=== PATIENT | male | born 1940 | race Caucasian/White ===

== ENCOUNTER → 2021-05-16 | Outpatient (CLI) | payer OTHER ==
[~2021-05-16] MED LIST: ASP81CT PO; DONE5TAB4 GT; HCT25T PO; SMV20T PO
--- NOTE | 2021-05-16 17:44 | Diagnostic Imaging Report ---
EXAMINATION: US Retroperitoneal Complete. TECHNIQUE: Multiple real-time grayscale images were obtained over the kidneys in various projections bilaterally. HISTORY: Chronic kidney disease. COMPARISON: Ultrasound abdomen 05/03/2011. FINDINGS: The right kidney demonstrates normal echogenicity with mildly decreased cortical thickness. The right kidney measures 9.6 x 4.2 x 5.8 cm. No hydronephrosis. The left kidney demonstrates normal echogenicity and mildly decreased cortical thickness. The left kidney measures 9.0 x 4.2 x 4.8 cm. No hydronephrosis. IMPRESSION: 1. Mild bilateral renal cortical thinning compatible with history of chronic kidney disease. No hydronephrosis. Dictated by: Dictated on workstation # [id number]
== END ==
LOC: RAD 15:15
PROVIDERS: ATTEND Nurse Practitioner Adult Health
DX: Z87.448 Personal history of other diseases of urinary system (principal)
CPT/HCPCS: 76770

== ENCOUNTER → 2021-06-06 | Outpatient (CLI) | payer OTHER ==
--- NOTE | 2021-06-06 16:07 | Diagnostic Imaging Report ---
EXAMINATION: US Retroperitoneal Complete. TECHNIQUE: Multiple real-time grayscale images were obtained over the kidneys in various projections bilaterally. HISTORY: CKD COMPARISON: Renal ultrasound 05/16/2021 FINDINGS: The right kidney demonstrates normal echogenicity and decreased cortical thickness. The right kidney measures 10.2 x 4.2 x 4.8 cm. No hydronephrosis. The left kidney demonstrates normal echogenicity and decreased cortical thickness. The left kidney measures 8.5 x 4.1 x 5.5 cm. No hydronephrosis. The urinary bladder is decompressed IMPRESSION: 1. Cortical thinning without hydronephrosis. Dictated by: Dictated on workstation # [id number]
== END ==
LOC: RAD 14:50
PROVIDERS: ATTEND Internal Medicine Nephrology
DX: N20.0 Calculus of kidney (principal); I12.9 Hypertensive chronic kidney disease with stage 1 through stage 4 chronic kidney disease, or unspecified chronic kidney disease; N18.32 Chronic kidney disease, stage 3b; N26.1 Atrophy of kidney (terminal)
CPT/HCPCS: 76770

== ENCOUNTER 2021-06-09 17:04 | Inpatient (IN) | payer MEDICARE, OTHER ==
[~2021-06-09] VITALS: Ht 172 cm; Wt 86.8 kg
--- NOTE | 2021-06-09 17:28 | ED General ---
General Chief Complaint: General Problems/Pain Stated Complaint: CONFUSION,WEAKNESS,FEVER Nursing Triage Note: ARRIVED VIA EMS FROM HOME WITH GENERALIZED WEKANKSS, FEVER, AND NOT FEELING WELL. Source of Information: Patient Exam Limitations: No Limitations (STEVE RAMIREZ MD) History of Present Illness Date Seen by Provider: Jun 09, 2021 Time Seen by Provider: 17:05 Initial Comments Christina is an 80-year-old male who presents to the emergency department today with a chief complaint of generalized weakness, confusion and reportedly fever by EMS of 101.7. Onset of symptoms possibly today. The patient is not a good historian and says "I do not know" to multiple questions. He denies any pain or shortness of breath. He cannot recall his past medical history or medications. He does not answer questions verbally he shakes his head a lot. No family is immediately available for history. Patient did present with a urostomy bag full of urine that is very strong smelling. Vital signs are stable. He is not hypoxic. He is demonstrating no increased work of breathing. He is obviously confused and cannot state where he is even though he has been told multiple times. Family phone numbers of his niece Kaci at [phone], his daughter Melissa [phone] and her Manpreet [phone] are provided to me for further history. (STEVE RAMIREZ MD) Allergies and Home Medications Allergies Coded Allergies: No Known Drug Allergies (Unverified , 12/16/10) Home Medications Aspirin 81 Mg Chew, 81 MG PO DAILY, (Reported) Donepezil Hcl 5 Mg Tab, 5 MG GT DAILY, (Reported) Hydrochlorothiazide 25 Mg Tab, 25 MG PO DAILY, (Reported) Simvastatin 20 Mg Tab, 20 MG PO DAILY, (Reported) Patient Home Medication List Home Medication List Reviewed: Yes (STEVE RAMIREZ MD) Review of Systems Review of Systems Constitutional: see HPI (STEVE RAMIREZ MD) Past Gfwoujo-Ytgdrl-Sumawz Hx Patient Social History Smoking Status: Unknown if Ever Smoked Substance use?: No Alcohol Use?: No (STEVE RAMIREZ MD) Tobacco Use?: No Use of E-Cig and/or Vaping dev: No (MUNIR IBARRA) Immunizations Up To Date Second COVID19 Vaccination Tam: HAS HAD IT BUT UNKNOWN DATE (STEVE RAMIREZ MD) Physical Exam Vital Signs Vital Signs - First Documented 06/09/21 17:15 Temp 37.4 Pulse 102 Resp 16 B/P (MAP) 112/66 (81) Pulse Ox 93 O2 Delivery Room Air (MUNIR IBARRA) Vital Signs Capillary Refill : Less Than 3 Seconds (STEVE RAMIREZ MD) Height, Weight, BMI Height: 5'9.00" Weight: 182lbs. oz. 82.725926cg; BMI Method: General Appearance: No Apparent Distress, WD/WN Eyes: Bilateral Eye Normal Inspection, Bilateral Eye PERRL, Bilateral Eye EOMI HEENT: PERRL/EOMI, Other (vomitus on face) Neck: Normal Inspection Respiratory: Lungs Clear, Normal Breath Sounds, No Accessory Muscle Use, No Respiratory Distress Cardiovascular: Regular Rate, Rhythm Gastrointestinal: Soft, Tenderness, Other (Urostomy present in the right lower quadrant) Extremity: Normal Capillary Refill, Normal Inspection, Normal Range of Motion, No Pedal Edema Neurologic/Psychiatric: Alert, No Motor/Sensory Deficits, Normal Mood/Affect Skin: Normal Color, Warm/Dry (STEVE RAMIREZ MD) Focused Exam Lactate Level 06/09/21 17:20: Lactic Acid Level 6.92*H (MUNIR IBARRA) Lactic Acid Level Laboratory Tests Test 06/09/21 17:20 Lactic Acid Level 6.92 MMOL/L (0.50-2.00) *H (MUNIR IBARRA) Progress/Results/Core Measures Suspected Sepsis SIRS Temperature: Pulse: 102 Respiratory Rate: 16 Laboratory Tests 06/09/21 17:20: White Blood Count 15.9H Blood Pressure 112 /66 Mean: 81 06/09/21 17:20: Lactic Acid Level 6.92*H Laboratory Tests 06/09/21 17:20: Creatinine 2.34H, Platelet Count 173, Total Bilirubin 0.4 (STEVE RAMIERZ MD) Results/Orders Lab Results Laboratory Tests Test 06/09/21 17:20 06/09/21 18:45 Range/Units White Blood Count 15.9 H 4.3-11.0 10^3/uL Red Blood Count 4.60 4.30-5.52 10^6/uL Hemoglobin 14.2 13.3-17.7 g/dL Hematocrit 44 40-54 % Mean Corpuscular Volume 95 80-99 fL Mean Corpuscular Hemoglobin 31 25-34 pg Mean Corpuscular Hemoglobin Concent 33 32-36 g/dL Red Cell Distribution Width 12.8 10.0-14.5 % Platelet Count 173 130-400 10^3/uL Mean Platelet Volume 10.9 9.0-12.2 fL Immature Granulocyte % (Auto) 1 % Neutrophils (%) (Auto) 95 H 42-75 % Lymphocytes (%) (Auto) 2 L 12-44 % Monocytes (%) (Auto) 1 0-12 % Eosinophils (%) (Auto) 2 0-10 % Basophils (%) (Auto) 0 0-10 % Neutrophils # (Auto) 15.0 H 1.8-7.8 10^3/uL Lymphocytes # (Auto) 0.3 L 1.0-4.0 10^3/uL Monocytes # (Auto) 0.1 0.0-1.0 10^3/uL Eosinophils # (Auto) 0.2 0.0-0.3 10^3/uL Basophils # (Auto) 0.1 0.0-0.1 10^3/uL Immature Granulocyte # (Auto) 0.1 0.0-0.1 10^3/uL Neutrophils % (Manual) 88 % Lymphocytes % (Manual) 1 % Monocytes % (Manual) 1 % Eosinophils % (Manual) 0 % Basophils % (Manual) 0 % Band Neutrophils 10 % Blood Morphology Comment NORMAL Urine Color YELLOW Urine Clarity CLEAR Urine pH 5.5 5-9 Urine Specific [place] 1.020 1.016-1.022 Urine Protein 1+ H NEGATIVE Urine Glucose (UA) NEGATIVE NEGATIVE Urine Ketones NEGATIVE NEGATIVE Urine Nitrite NEGATIVE NEGATIVE Urine Bilirubin NEGATIVE NEGATIVE Urine Urobilinogen 0.2 < = 1.0 MG/DL Urine Leukocyte Esterase 1+ H NEGATIVE Urine RBC (Auto) TRACE-I NEGATIVE Urine RBC 0-2 /HPF Urine WBC 5-10 H /HPF Urine Squamous Epithelial Cells NONE /HPF Urine Crystals NONE /LPF Urine Bacteria LARGE H /HPF Urine Casts NONE /LPF Urine Mucus NEGATIVE /LPF Urine Culture Indicated CULTURE PENDING Sodium Level 144 135-145 MMOL/L Potassium Level 3.5 L 3.6-5.0 MMOL/L Chloride Level 110 H 98-107 MMOL/L Carbon Dioxide Level 14 L 21-32 MMOL/L Anion Gap 20 H 5-14 MMOL/L Blood Urea Nitrogen 27 H 7-18 MG/DL Creatinine 2.34 H 0.60-1.30 MG/DL Estimat Glomerular Filtration Rate 27 BUN/Creatinine Ratio 12 Glucose Level 83 70-105 MG/DL Lactic Acid Level 6.92 *H 0.50-2.00 MMOL/L Calcium Level 8.9 8.5-10.1 MG/DL Corrected Calcium 9.2 8.5-10.1 MG/DL Total Bilirubin 0.4 0.1-1.0 MG/DL Aspartate Amino Transf (AST/SGOT) 23 5-34 U/L Alanine Aminotransferase (ALT/SGPT) 13 0-55 U/L Alkaline Phosphatase 109 40-136 U/L Total Protein 6.3 L 6.4-8.2 GM/DL Albumin 3.6 3.2-4.5 GM/DL Influenza Type A (RT-PCR) Not Detected Not Detecte Influenza Type B (RT-PCR) Not Detected Not Detecte SARS-CoV-2 RNA (RT-PCR) Not Detected Not Detecte (MUNIR IBARRA) My Orders Orders - MUNIR IBARRA Cefepime 1 Gm Iv (1x Dose) (06/09/21 19:15) (MUNIR IBARRA) Vital Signs/I&O 06/09/21 17:15 Temp 37.4 Pulse 102 Resp 16 B/P (MAP) 112/66 (81) Pulse Ox 93 O2 Delivery Room Air (MUNIR IBARRA) Vital Signs/I&O Capillary Refill : Less Than 3 Seconds (STEVE RAMIREZ MD) Blood Pressure Mean: 81 Progress Note : Time: 18:19 Progress Note Assumed care of the patient at shift change. He is in septic shock based on his lactate with presumable UTI. His Covid is negative but a chest x-ray is pending. Plan for ICU care as he is desiccated. He wishes to be full CODE STATUS according to his family. They stated never had a conversation before today. Based on the results of the chest x-ray we will determine appropriate antibiotic choice. (MUNIR IBARRA) Diagnostic Imaging Diagonstic Imaging: Xray Plain Films/CT/US/NM/MRI: chest Comments [facility] [place], [place] NAME: CHRISTINA BRENNER [facility] REC#: [id number] PT STATUS: REG ER : 1940 PHYSICIAN: STEVE RAMIREZ MD ADMIT DATE: 06/09/21/ER Draft Date of Exam:06/09/21 CHEST 1 VIEW, AP/PA ONLY INDICATION: Sepsis COMPARISON: None FINDINGS: Single view of the chest demonstrates clear lungs bilaterally. The heart is normal. There is no pneumothorax. The osseous structures normal. IMPRESSION: Negative chest Dictated on workstation # [id number] Dict: 06/09/21 1836 Trans: 06/09/21 1843 [facility] [id number] Interpreted by: MILAGRO MENDOZA Electronically signed by: Reviewed: Reviewed by Me (MUNIR IBARRA) Departure Communication (Admissions) Time/Spoke to Admitting Phy: 19:00 Discussed the case with Dr. Ma and she agrees with ICU placement on cefepime. (MUNIR IBARRA) Impression Primary Impression: Urinary tract infection Qualified Codes: N39.0 - Urinary tract infection, site not specified Additional Impressions: Septic shock Delirium due to another medical condition, acute, hypoactive Disposition: ADMITTED INPATIENT Condition: Stable Admissions Decision to Admit Reason: Admit from ER (General) Decision to Admit/Date: Jun 09, 2021 Time/Decision to Admit Time: 18:00 (MUNIR IBARRA) Departure-Patient Inst. Referrals: GHAZALA ARAYA DO (PCP/Family) Primary Care Physician STEVE RAMIREZ MD Jun 09, 2021 17:27 MUNIR IBARRA Jun 09, 2021 18:21
[2021-06-09 17:37] LABS: BILIRUBIN,URINE NEGATIVE (NEGATIVE); CLARITY,URINE CLEAR; COLOR,URINE YELLOW; GLUCOSE, URINE (UA) NEGATIVE (NEGATIVE); KETONES,URINE NEGATIVE (NEGATIVE); LEUKOCYTE ESTERASE ,URINE 1+ (NEGATIVE); NITRITE,URINE NEGATIVE (NEGATIVE); PH,URINE 5.5 (5-9); PROTEIN,URINE 1+ (NEGATIVE)
[2021-06-09 17:44] LABS: ALBUMIN 3.6 GM/DL (3.2-4.5)
[2021-06-09 17:45] LABS: POTASSIUM 3.5 MMOL/L (3.6-5.0)
[2021-06-09 17:46] LABS: CALCIUM 8.9 MG/DL (8.5-10.1)
[2021-06-09 17:47] LABS: TOTAL PROTEIN 6.3 GM/DL (6.4-8.2)
[2021-06-09 17:49] LABS: BILIRUBIN,TOTAL 0.4 MG/DL (0.1-1.0)
[2021-06-09 17:50] LABS: BASOPHILS # (AUTO) 0.1 10^3/uL (0.0-0.1); BASOPHILS % (AUTO) 0 % (0-10); EOSINOPHILS # (AUTO) 0.2 10^3/uL (0.0-0.3); EOSINOPHILS % (AUTO) 2 % (0-10); HEMATOCRIT 44 % (40-54); HEMOGLOBIN 14.2 g/dL (13.3-17.7); LYMPHOCYTES # (AUTO) 0.3 10^3/uL (1.0-4.0); LYMPHOCYTES % (AUTO) 2 % (12-44); MEAN CORPUSCULAR HEMOGLOBIN 31 pg (25-34); MEAN CORPUSCULAR HGB CONC 33 g/dL (32-36); MEAN CORPUSCULAR VOLUME 95 fL (80-99); MEAN PLATELET VOLUME 10.9 fL (9.0-12.2); MONOCYTES # (AUTO) 0.1 10^3/uL (0.0-1.0); MONOCYTES % (AUTO) 1 % (0-12); NEUTROPHILS % (AUTO) 95 % (42-75); PLATELET COUNT 173 10^3/uL (130-400); WHITE BLOOD COUNT 15.9 10^3/uL (4.3-11.0)
[2021-06-09 17:51] LABS: CREATININE SERUM 2.34 MG/DL (0.60-1.30)
[2021-06-09 17:56] LABS: BACTERIA,URINE LARGE /HPF; RBC,URINE 0-2 /HPF
[2021-06-09 17:57] LABS: BAND NEUTROPHILS 10 %; BASOPHILS % (MANUAL) 0 %; EOSINOPHILS % (MANUAL) 0 %; LYMPHOCYTES % (MANUAL) 1 %; MONOCYTES % (MANUAL) 1 %; NEUTROPHILS % (MANUAL) 88 %; RBC MORPH NORMAL
[2021-06-09] MEDS ORDERED: NS IV 1000 ML 1,000 ML IV SCH ×2 (18:15→23:00)
--- NOTE | 2021-06-09 18:43 | Diagnostic Imaging Report ---
INDICATION: Sepsis COMPARISON: None FINDINGS: Single view of the chest demonstrates clear lungs bilaterally. The heart is normal. There is no pneumothorax. The osseous structures normal. IMPRESSION: Negative chest Dictated by: Dictated on workstation # [id number]
[2021-06-09 19:09] LABS: INR 1.4 (0.8-1.4); PROTHROMBIN TIME PATIENT 17.1 SEC (12.2-14.7)
[2021-06-09] MEDS ORDERED: CEFEPIME INJECTION 1,000 MG in WATER (STERILE) FOR INJECTION 10 ML IV ONE (19:15)
[2021-06-09] MEDS ORDERED: NS IV 500 ML 500 ML IV ONE (19:15)
[2021-06-09] MEDS ORDERED: LACTATED RINGERS 1,000 ML IV SCH (20:15)
[2021-06-09] MEDS ORDERED: ACETAMINOPHEN 650 MG SUPP (TYLENOL) PR PRN (20:15)
[2021-06-09] MEDS ORDERED: ACETAMINOPHEN 325 MG TABLET PO PRN (20:15)
[2021-06-09] MEDS ORDERED: ONDANSETRON 4 MG/2 ML (SDV) Z0FRAN IVP PRN (20:15)
--- NOTE | 2021-06-09 20:31 | Tele-ICU Consult ---
Focused Exam Sepsis Stage: Septic Shock Possible Source: Genitouriary Lactate Level 06/09/21 17:20: Lactic Acid Level 6.92*H 06/09/21 19:31: Lactic Acid Level 8.77*H Height, Weight, BMI Height: 5'9.00" Weight: 182lbs. oz. 82.712524uz; 27.81 BMI Method: Lactic Acid Level Laboratory Tests Test 06/09/21 17:20 06/09/21 19:31 Lactic Acid Level 6.92 MMOL/L (0.50-2.00) *H 8.77 MMOL/L (0.50-2.00) *H RON BRISCOE MD Jun 09, 2021 20:31
[2021-06-09] MEDS: NS IV 1000 ML 1,000 ML IV SCH (20:45)
[2021-06-10 02:34] LABS: BASOPHILS % (AUTO) 0 % (0-10); EOSINOPHILS % (AUTO) 0 % (0-10); HEMATOCRIT 40 % (40-54); HEMOGLOBIN 12.8 g/dL (13.3-17.7); LYMPHOCYTES # (AUTO) 0.4 10^3/uL (1.0-4.0); LYMPHOCYTES % (AUTO) 2 % (12-44); MEAN CORPUSCULAR HEMOGLOBIN 31 pg (25-34); MEAN CORPUSCULAR HGB CONC 32 g/dL (32-36); MEAN CORPUSCULAR VOLUME 95 fL (80-99); MEAN PLATELET VOLUME 10.9 fL (9.0-12.2); MONOCYTES % (AUTO) 4 % (0-12); NEUTROPHILS % (AUTO) 91 % (42-75); PLATELET COUNT 139 10^3/uL (130-400); WHITE BLOOD COUNT 24.2 10^3/uL (4.3-11.0)
[2021-06-10 02:41] LABS: ALBUMIN 3.1 GM/DL (3.2-4.5); POTASSIUM 3.8 MMOL/L (3.6-5.0)
[2021-06-10 02:43] LABS: CALCIUM 7.6 MG/DL (8.5-10.1)
[2021-06-10 02:44] LABS: TOTAL PROTEIN 5.4 GM/DL (6.4-8.2)
[2021-06-10 02:46] LABS: BILIRUBIN,TOTAL 0.3 MG/DL (0.1-1.0)
[2021-06-10 02:47] LABS: PHOSPHORUS 1.8 MG/DL (2.3-4.7)
[2021-06-10 02:48] LABS: CREATININE SERUM 2.25 MG/DL (0.60-1.30)
[2021-06-10 02:50] LABS: MAGNESIUM 1.3 MG/DL (1.6-2.4)
[2021-06-10] MEDS ORDERED: DexMEDEtomidine 250 ML DRIP 250 ML IV ONE (04:09)
[2021-06-10 04:12] LABS: ABG BASE EXCESS -13.5 MMOL/L (-2.5-2.5); ABG OXYGEN SATURATION 94 % (94-100); ABG PCO2 28 MMHG (35-45); ABG PO2 74 MMHG (79-93); ABG TCO2 13.3 MMOL/L (21.0-31.0)
[2021-06-10 04:14] LABS: ALLENS TEST YES-POS; VENTILATOR NO
[2021-06-10 04:15] LABS: ABG PH 7.26 (7.37-7.43); INSPIRED O2 3 L NC
[2021-06-10] MEDS ORDERED: 1/2 NS IV SOLUTION 1,000 ML IV ONE (04:25)
[2021-06-10] MEDS ORDERED: SODIUM BICARB 8.4% 50 MEQ/50 ML (ABBOTT) SYR ONE ×2 (04:26→21:55)
[2021-06-10] MEDS: DexMEDEtomidine 250 ML DRIP 250 ML IV SCH ×2 (04:35→20:28)
[2021-06-10] MEDS: SODIUM BICARBONATE 8.4% VIAL 100 MEQ in 1/2 NS IV SOLUTION 1,000 ML IV SCH ×2 (04:36→16:25)
[2021-06-10] MEDS: NS IV 1000 ML 1,000 ML IV SCH ×3 (04:36→23:04)
[2021-06-10] MEDS ORDERED: NOREPINEPHRINE 8 MG/250 ML 250 ML IV ONE (04:57)
[2021-06-10] MEDS ORDERED: ALBUMIN 25% 25 GM/100 ML 50 ML IV ONE (05:00)
--- NOTE | 2021-06-10 05:02 | Tele-ICU Progress Note ---
Progress Note Patient had been doing well, then had a BM followed by extreme agitation. When asked what is wrong, states he doesn't know. Patient was tachycardic, tachypneic, restless and hypertensive. Appeared to have impending doom more than agitation. ABG with martially compensated metabolic acidosis. Started bicarb gtt to diminish compensatory work of breathing. Initiated precedex, became very lethargic and hypotensive in the 60s. Will start peripheral levophed, albumin bolus, order CVL. Focused Exam Lactate Level 06/09/21 23:50: Lactic Acid Level 8.89*H 06/10/21 02:15: Lactic Acid Level 6.83*H 06/10/21 04:25: Lactic Acid Level 8.50*H Height, Weight, BMI Height: 5'9.00" Weight: 182lbs. oz. 82.314389jq; 27.81 BMI Method: Lactic Acid Level Laboratory Tests Test 06/10/21 02:15 06/10/21 04:25 Lactic Acid Level 6.83 MMOL/L (0.50-2.00) *H 8.50 MMOL/L (0.50-2.00) *H RON BRISCOE MD Jun 10, 2021 05:02
[2021-06-10] MEDS: NOREPINEPHRINE 8 MG/250 ML 250 ML IV SCH ×2 (05:32→21:13)
[2021-06-10] MEDS: POTASSIUM CL 10MEQ/50ML IVPB 50 ML IV SCH (06:11)
[2021-06-10] MEDS: MAGNESIUM 1 GM/100 ML IVPB 100 ML IV SCH ×4 (06:11→10:37)
[2021-06-10] MEDS: KCL 20 MEQ TAB (K-DUR) PO SCH (06:12)
[2021-06-10] MEDS: CEFEPIME 1,000 MG/SWFI 10 ML IV PUSH IV SCH ×4 (06:13→19:21)
[2021-06-10] MEDS ORDERED: ENOXAPARIN 30 MG/0.3 ML (LOVENOX) SYR SC SCH (09:00)
--- NOTE | 2021-06-10 09:16 | Diagnostic Imaging Report ---
EXAMINATION: Chest radiograph, portable AP view. DATE: 06/10/2021 5:31 AM INDICATION: 80-year-old male, dyspnea. COMPARISON: June 09, 2021. FINDINGS: Stable overall appearance of the cardiomediastinal silhouette. There is no identified pneumothorax. There is no large pleural effusion. There is no identified focal airspace consolidation. IMPRESSION: 1. No identified acute cardiopulmonary abnormality. Dictated by: Dictated on workstation # [id number]
--- NOTE | 2021-06-10 09:20 | Consultation - Surgery ---
History of Present Illness History of Present Illness Patient Consulted On(eli/time) 06/10/21 09:14 Time Seen by Provider: 08:01 History of Present Illness Surgery asked to consult regarding Venous Insufficiency, Hypotension and Sepsis. HPI per ED: Kevyn is an 80-year-old male who presents to the emergency department today with a chief complaint of generalized weakness, confusion and reportedly fever by EMS of 101.7. Onset of symptoms possibly today. The patient is not a good historian and says "I do not know" to multiple questions. He denies any pain or shortness of breath. He cannot recall his past medical history or medications. He does not answer questions verbally he shakes his head a lot. No family is immediately available for history. Patient did present with a urostomy bag full of urine that is very strong smelling. Vital signs are stable. He is not hypoxic. He is demonstrating no increased work of breathing. He is obviously confused and cannot state where he is even though he has been told multiple times. When I saw pt this morning he was sedated and not answering questions. Allergies and Home Medications Allergies Coded Allergies: No Known Drug Allergies (Unverified , 12/16/10) Home Medications Aspirin 81 Mg Chew, 81 MG PO DAILY, (Reported) Donepezil Hcl 5 Mg Tab, 5 MG GT DAILY, (Reported) Hydrochlorothiazide 25 Mg Tab, 25 MG PO DAILY, (Reported) Simvastatin 20 Mg Tab, 20 MG PO DAILY, (Reported) Patient Home Medication List Home Medication List Reviewed: Yes Past Tgkwcgw-Vcdzrv-Dbqtnn Hx Patient Social History Smoking Status: Unknown if Ever Smoked Alcohol Use?: No Have you traveled recently?: No Immunizations Up To Date Date of Pneumonia Vaccine: Nov 13, 2011 Date of Influenza Vaccine: Aug 11, 2014 Surgeries History of Surgeries: Yes Surgeries: Urinary Diversion Respiratory History of Respiratory Disorde: No Cardiovascular History of Cardiac Disorders: Yes Cardiac Disorders: Hypertension Neurological History of Neurological Disord: Yes Neurological Disorders: Dementia Genitourinary History of Genitourinary Disor: Yes Genitourinary Disorders: Prostate Problems, UTI-Chronic Gastrointestinal History of Gastrointestinal Di: No Musculoskeletal History of Musculoskeletal Dis: No HEENT History of HEENT Disorders: No Cancer History of Cancer: Yes (prostate) Family Medical History Significant Family History: Other Conditions/Hx (unable to obtain) Review of Systems-General ROS-Unable to Obtain: pt sedated, not answering questions Constitutional: malaise, weakness Physical Exam-General Problems Physical Exam Vital Signs Vital Signs - First Documented 06/09/21 06/09/21 17:15 19:24 Temp 37.4 Pulse 102 Resp 16 B/P (MAP) 112/66 (81) Pulse Ox 93 O2 Delivery Room Air O2 Flow Rate 2.00 Capillary Refill : Less Than 3 Seconds General Appearance: other (sedated on precedex) HEENT: PERRL/EOMI; No scleral icterus (R), No scleral icterus (L) Respiratory: lungs clear, no respiratory distress, no accessory muscle use Cardiovascular: no murmur, tachycardia Gastrointestinal: non tender, soft, no organomegaly, other (urostomy) Extremities: no pedal edema Neurologic/Psychiatric: other (sedated and normally demented) Skin: normal color, warm/dry Lymphatic: no adenopathy (neck, axilla or groin) Data Review Labs Laboratory Tests 06/09/21 17:20: White Blood Count 15.9H, Red Blood Count 4.60, Hemoglobin 14.2, Hematocrit 44, Mean Corpuscular Volume 95, Mean Corpuscular Hemoglobin 31, Mean Corpuscular Hemoglobin Concent 33, Red Cell Distribution Width 12.8, Platelet Count 173, Mean Platelet Volume 10.9, Immature Granulocyte % (Auto) 1, Neutrophils (%) (Auto) 95H, Lymphocytes (%) (Auto) 2L, Monocytes (%) (Auto) 1, Eosinophils (%) (Auto) 2, Basophils (%) (Auto) 0, Neutrophils # (Auto) 15.0H, Lymphocytes # (Auto) 0.3L, Monocytes # (Auto) 0.1, Eosinophils # (Auto) 0.2, Basophils # (Auto) 0.1, Immature Granulocyte # (Auto) 0.1, Neutrophils % (Manual) 88, Lymphocytes % (Manual) 1, Monocytes % (Manual) 1, Eosinophils % (Manual) 0, Basophils % (Manual) 0, Band Neutrophils 10, Blood Morphology Comment NORMAL, Urine Color YELLOW, Urine Clarity CLEAR, Urine pH 5.5, Urine Specific [place] 1.020, Urine Protein 1+H, Urine Glucose (UA) NEGATIVE, Urine Ketones NEGATIVE, Urine Nitrite NEGATIVE, Urine Bilirubin NEGATIVE, Urine Urobilinogen 0.2, Urine Leukocyte Esterase 1+H, Urine RBC (Auto) TRACE-I, Urine RBC 0-2, Urine WBC 5-10H , Urine Squamous Epithelial Cells NONE, Urine Crystals NONE, Urine Bacteria LARGEH, Urine Casts NONE, Urine Mucus NEGATIVE, Urine Culture Indicated CULTURE PENDING, Sodium Level 144, Potassium Level 3.5L, Chloride Level 110H, Carbon Dioxide Level 14L, Anion Gap 20H, Blood Urea Nitrogen 27H, Creatinine 2.34H, Estimat Glomerular Filtration Rate 27, BUN/Creatinine Ratio 12, Glucose Level 83, Lactic Acid Level 6.92*H, Calcium Level 8.9, Corrected Calcium 9.2, Total Bilirubin 0.4, Aspartate Amino Transf (AST/SGOT) 23, Alanine Aminotransferase (ALT/SGPT) 13, Alkaline Phosphatase 109, Total Protein 6.3L, Albumin 3.6, Influenza Type A (RT-PCR) Not Detected, Influenza Type B (RT-PCR) Not Detected, SARS-CoV-2 RNA (RT-PCR) Not Detected 06/09/21 18:45: Prothrombin Time 17.1H, INR Comment 1.4, Activated Partial Thromboplast Time 39H 06/09/21 19:31: Lactic Acid Level 8.77*H 06/09/21 22:05: Lactic Acid Level 8.98*H 06/09/21 23:50: Lactic Acid Level 8.89*H 06/10/21 02:15: Lactic Acid Level 6.83*H, White Blood Count 24.2H, Red Blood Count 4.15L, Hemoglobin 12.8L, Hematocrit 40, Mean Corpuscular Volume 95, Mean Corpuscular Hemoglobin 31, Mean Corpuscular Hemoglobin Concent 32, Red Cell Distribution Width 13.2, Platelet Count 139, Mean Platelet Volume 10.9, Immature Granulocyte % (Auto) 3, Neutrophils (%) (Auto) 91H, Lymphocytes (%) (Auto) 2L, Monocytes (%) (Auto) 4, Eosinophils (%) (Auto) 0, Basophils (%) (Auto) 0, Neutrophils # (Auto) 22.0H, Lymphocytes # (Auto) 0.4L, Monocytes # (Auto) 1.0, Eosinophils # (Auto) 0.0, Basophils # (Auto) 0.0, Immature Granulocyte # (Auto) 0.7H, Sodium Level 145, Potassium Level 3.8, Chloride Level 114H, Carbon Dioxide Level 15L, Anion Gap 16H, Blood Urea Nitrogen 31H, Creatinine 2.25H, Estimat Glomerular Filtration Rate 28, BUN/Creatinine Ratio 14, Glucose Level 78, Calcium Level 7.6L, Corrected Calcium 8.3L, Phosphorus Level 1.8L, Magnesium Level 1.3L, Total Bilirubin 0.3, Aspartate Amino Transf (AST/SGOT) 35H, Alanine Aminotransferase (ALT/SGPT) 17, Alkaline Phosphatase 76, Total Protein 5.4L, Albumin 3.1L, Procalcitonin 436.54H 06/10/21 04:05: Blood Gas Puncture Site L RAD, Blood Gas Patient Temperature 36.0, Arterial Blood pH 7.26*L, Arterial Blood Partial Pressure CO2 28L, Arterial Blood Partial Pressure O2 74L, Arterial Blood HCO3 12*L, Arterial Blood Total CO2 13.3L, Arterial Blood Oxygen Saturation 94, Arterial Blood Base Excess -13.5L, Eddi Test YES-POS, Blood Gas Ventilator Setting NO, Blood Gas Inspired Oxygen 3 L NC 06/10/21 04:25: Lactic Acid Level 8.50*H, Troponin I 0.879*H, B-Type Natriuretic Peptide 1450.8H 06/10/21 06:25: Lactic Acid Level 5.82*H 06/10/21 09:00: Assessment/Plan Assessment/Plan Assessment/Plan Venous Insufficiency Sepsis - most likely urinary origin Dementia Pt is hypotensive because of sepsis and needs central IV access so that they can give BP support. Will place central line. CAITLIN BUCHANAN DO Jun 10, 2021 09:20
--- NOTE | 2021-06-10 09:21 | Progress Note-Post Operative ---
Post-Operative Progess Note Surgeon (s)/Building Operator (s) Surgeon CAITLIN BUCHANAN DO Building Operator: none Pre-Operative Diagnosis Sepsis, Venous Insufficiency Post-Operative Diagnosis same Procedure & Operative Findings Date of Procedure 06/10/21 Procedure Performed/Findings The patient was in their bed in the ICU, was prepped and draped in the sterile fashion. A surgical pause was performed. Ultrasound was used to locate the internal jugular vein. Once located anesthetic was infiltrated above it. Using an 18 gauge finder needle and watching with the US; the right internal jugular vein was accessed. Dark nonpulsatile blood was withdrawn. The wire was inserted. Fluoroscopy assured proper placement. The needle was removed. A [#11] blade scalpel was used to make a stab incision along the guidewire. Dilator sheath was then advanced over the wire using Seldinger technique and the dilator was removed. The Groshong catheter was inserted over the guide wire using the Seldinger technique. The [place]ong wire was removed. The catheter was then accessed in all three ports without difficulty. Good flash of blood was seen and it was then flushed with saline. The catheter was sutured in place with 3-0 silk on a jesusita needle. The areas were then washed and dried. Sterile dressing was placed over incision. The patient tolerated the procedure well without complication. Anesthesia Type local lidocaine Estimated Blood Loss Estimated blood loss (mL): scant Specimens/Packing Specimens Removed none CAITLIN BUCHANAN DO Jun 10, 2021 09:21
--- NOTE | 2021-06-10 09:27 | History & Physical-Hospitalist ---
History of Present Illness HPI/Chief Complaint Pt is an 80yoCM witha PMH of prostate and bladder cancer, HTN, HLD, and dementia who presented to the ER due to weakness and altered mental status. He is unable to provide me any history. He has two daughters at the bedside who relay all history except for what is obtained from the chart. He is normally ambulatory and lives in an independent living ([facility] in [place]) who has not felt well for the past couple of days and was worse yesterday. Daughter reports that he would not get out of bed so they recommended that their mom call the facilitys' nurse. When the nurse arrived they called EMS. He was found to be in septic shock from a UTI and admitted to the ICU. Overnight he has continued to worsen and was quite agitated requiring precedex. He then became hypotensive and required central line placement for pressors. Source: patient Date Seen 06/10/21 Time Seen by a Provider: 09:19 Attending Physician Daisha Ma MD PCP Ghazala Araya DO Referring Physician Date of Admission Jun 09, 2021 at 18:20 Home Medications & Allergies Home Medications Reviewed patient Home Medication Reconciliation performed by pharmacy medication reconciliations voice and data technician and/or nursing. Patients Allergies have been reviewed. Allergies Allergies Coded Allergies No Known Drug Allergies (Unverified12/16/10) Past Wqwzwcp-Kgobgf-Ofmrxn Hx Patient Social History Marrital Status: Employed/Student: retired Tobacco Use?: No Smoking Status: Never a Smoker Use of E-Cig and/or Vaping dev: No Substance use?: No Alcohol Use?: No Immunizations Up To Date Date of Influenza Vaccine: Aug 11, 2014 First/Initial COVID19 Vaccinat: HAS HAD IT in Dec Second COVID19 Vaccination Tam: HAS HAD IT in Dec Date of Pneumonia Vaccine: Nov 13, 2011 Current Status Communicates: Verbally Primary Language: Surinamese Preferred Spoken Language: Surinamese Past Medical History Surgeries: Prostatectomy, Urinary Diversion Hypertension Dementia Renal Failure Bladder, Prostate Did You Recieve Any Treatments: Yes What Type of Treatment Did You: Surgical Intervention Family Medical History Reviewed Nursing Family Hx No Pertinent Family Hx Review of Systems ROS-Unable to Obtain: did not answer questions Constitutional: see HPI Physical Exam Physical Exam Vital Signs Vital Signs - First Documented 06/09/21 06/09/21 17:15 19:24 Temp 37.4 Pulse 102 Resp 16 B/P (MAP) 112/66 (81) Pulse Ox 93 O2 Delivery Room Air O2 Flow Rate 2.00 Capillary Refill : Less Than 3 Seconds Height, Weight, BMI Height: 5'9.00" Weight: 182lbs. oz. 82.157988df; 27.81 BMI Method: General Appearance: Chronically ill, Mild Distress HEENT: PERRL/EOMI, Moist Mucous Membranes Neck: Full Range of Motion, Supple Respiratory: No Accessory Muscle Use, Decreased Breath Sounds, Other (on 2lpm) Cardiovascular: Regular Rate, Rhythm, No Murmur Gastrointestinal: Normal Bowel Sounds, Non Tender, Soft, Other (orostomy noted) Extremity: No Calf Tenderness, No Pedal Edema, Slow Capillary Refill Neurologic/Psychiatric: Other (awakens with physical touch, answer one or two yes or no questions, otherwise falls back asleep) Skin: Mottled (toes) Results Results/Procedures Labs Laboratory Tests 06/09/21 17:20 06/10/21 02:15 Patient resulted labs reviewed. Imaging: Reviewed Imaging Report Imaging [facility] [place], [place] NAME: [facility] REC#: [id number] PT STATUS: ADM IN : 1940 PHYSICIAN: STEVE RAMIREZ MD ADMIT DATE: 06/09/21/ICU Signed Date of Exam:06/09/21 CHEST 1 VIEW, AP/PA ONLY INDICATION: Sepsis COMPARISON: None FINDINGS: Single view of the chest demonstrates clear lungs bilaterally. The heart is normal. There is no pneumothorax. The osseous structures normal. 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 Continue on IV abx, await cultures- Cefepime due to urostomy Pressor started this morning Lactic up to nearly 9 overnight and does to 5.8 this AM Continue IVF Critically ill, discussed code status with daughters at bedside- they state his previously stated wishes were to be a full code, we discussed in the setting of septic shock and cardiac arrest that the outcome would likely not be him returning to his normal state or surviving, they expressed understanding of this Elevated troponin Trop 0.8 Likely Type II [place] from shock Cardiology consulted, appreciate recs HTN Hold home meds due to hypotension DVT ppx: Lovenox Diagnosis/Problems Diagnosis/Problems (1) Elevated troponin (2) Septic shock Status: Acute (3) Urinary tract infection Status: Acute Qualifiers: Urinary tract infection type: site unspecified Hematuria presence: without hematuria Qualified Codes: N39.0 - Urinary tract infection, site not specified (4) Delirium due to another medical condition, acute, hypoactive Status: Acute Copy Copies To 1: GHAZALA ARAYA KATELYN M MD Jun 10, 2021 09:27
[2021-06-10] MEDS ORDERED: SODIUM BICARB 8.4% 50 MEQ/50 ML (ABBOTT) SYR IV NR (10:30)
[2021-06-10] MEDS: PANTOPRAZOLE 40 MG (PROTONIX) VIAL IV SCH (10:35)
--- NOTE | 2021-06-10 10:46 | Tele-ICU Progress Note ---
Subjective Date Seen by a Provider: Jun 10, 2021 Time Seen by a Provider: 10:40 Subjective/Events-last exam This gentleman last night admitted with septic shock. The patient apparently had a urostomy due to an underlying either bladder or prostate cancer. And this could be the source of his infection. His blood cultures and urine cultures are growing gram-negative organisms. I have old made a video visit and is also discussed with the attending physician Dr. Mcmahan. I have ordered additional sodium bicarbonate 100 mEq IV push. A general surgery consultation was requested who pulled a CVC catheter in. He is currently requiring very minute dose of her Levophed. He is also on a Precedex as he is agitated. Hopefully his agitation will improve with the correction of his acidosis. He is on a broad-spectrum antibiotic. He is seen by urologist to this a.m. and ordered some test. We will repeat a ABG this afternoon. troponin elevated. Cardiology on consultation Sepsis Event Evaluation Height, Weight, BMI Height: 5'9.00" Weight: 182lbs. oz. 82.748657hg; 27.81 BMI Method: Focused Exam Lactate Level 06/10/21 04:25: Lactic Acid Level 8.50*H 06/10/21 06:25: Lactic Acid Level 5.82*H 06/10/21 09:00: Lactic Acid Level 3.55*H Lactic Acid Level Laboratory Tests Test 06/10/21 09:00 Lactic Acid Level 3.55 MMOL/L (0.50-2.00) *H Exam Exam Patient acknowledged, consented, and participated in this virtual visit which was conducted using real time audio/video Vital Signs Date Time Temp Pulse Resp B/P (MAP) Pulse Ox O2 Delivery O2 Flow Rate FiO2 06/10/21 10:00 76 12 98/62 (74) 96 Nasal Cannula 2.00 06/10/21 09:00 79 15 118/79 (92) 95 Nasal Cannula 2.00 06/10/21 08:00 82 25 98/65 (76) 95 Nasal Cannula 2.00 06/10/21 08:00 36.6 06/10/21 07:00 75 24 105/64 (78) 95 Nasal Cannula 2.00 06/10/21 07:00 78 06/10/21 06:38 Nasal Cannula 2.00 06/10/21 06:00 74 26 121/68 (85) 95 Nasal Cannula 3.00 06/10/21 05:32 130 173/101 06/10/21 05:00 94 29 108/68 (81) 93 Nasal Cannula 3.00 06/10/21 04:35 130 173/101 06/10/21 04:00 130 20 173/101 (125) 91 Nasal Cannula 2.00 06/10/21 04:00 Nasal Cannula 3.00 06/10/21 04:00 94 Nasal Cannula 3.00 06/10/21 04:00 36.4 06/10/21 03:00 107 13 123/77 (92) 94 Nasal Cannula 2.00 06/10/21 02:00 104 35 105/67 (80) 92 Nasal Cannula 2.00 06/10/21 01:00 100 28 114/64 (81) 93 Nasal Cannula 2.00 06/10/21 01:00 100 06/10/21 00:00 98 35 97/60 (72) 94 Nasal Cannula 2.00 06/09/21 23:59 94 Nasal Cannula 2.00 06/09/21 23:00 112 12 110/65 (80) 92 Nasal Cannula 2.00 06/09/21 22:00 107 28 118/67 (84) 93 Nasal Cannula 2.00 06/09/21 21:00 100 33 112/68 (83) 94 Nasal Cannula 2.00 06/09/21 20:00 95 Nasal Cannula 2.00 06/09/21 20:00 108 43 104/62 (76) 94 Nasal Cannula 2.00 06/09/21 19:51 37.4 112 30 114/76 (89) 95 Nasal Cannula 2.00 06/09/21 19:24 37.3 110 24 116/70 96 Nasal Cannula 2.00 06/09/21 19:00 110 06/09/21 17:15 37.4 102 16 112/66 (81) 93 Room Air I & O 06/10/21 07:00 Intake Total 2710 ml Output Total 475 ml Balance 2235 ml Height & Weight Height: 5'9.00" Weight: 182lbs. oz. 82.191768jm; 27.81 BMI Method: General Appearance: Chronically ill, Mild Distress HEENT: PERRL/EOMI, Moist Mucous Membranes Neck: Full Range of Motion, Supple Respiratory: No Accessory Muscle Use, Decreased Breath Sounds, Other (on 2lpm) Cardiovascular: Regular Rate, Rhythm, No Murmur Capillary Refill: Less Than 3 Seconds Gastrointestinal: non tender, soft, no organomegaly, other (urostomy) Extremity: No Calf Tenderness, No Pedal Edema, Slow Capillary Refill Neurologic/Psychiatric: Other (awakens with physical touch, answer one or two yes or no questions, otherwise falls back asleep) Skin: Mottled (toes) Results Lab Laboratory Tests 06/09/21 17:20 06/10/21 02:15 Meds reviewed Radiology reviewed Assessment/Plan Assessment/Plan 1. Gram-negative septic shock 2. Metabolic encephalopathy 3. 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 Urinary tract infection 5. Acute on chronic kidney injury due to septic shock. 6. Elevated troponin Recommendations 1. I have ordered additional sodium bicarbonate 100 mEq IV push followed by repeat blood gas 2. Continue broad-spectrum antibiotics to cover gram-negative organisms 3. Precedex to control his agitation 4. Urology consultation , cardiology and general surgery consultation has been requested and work-up is in progress. 5. His overall prognosis is guarded 6. I have discussed with the attending physician Dr. Ma Critical Care: Critically Ill Patient Time spent with patient (mins): 45 Diagnosis/Problems Diagnosis/Problems (1) Septic shock Status: Acute (2) Urinary tract infection Status: Acute Qualifiers: Qualified Codes: N39.0 - Urinary tract infection, site not specified (3) Delirium due to another medical condition, acute, hypoactive Status: Acute (4) Elevated troponin RAMIREZ HOROWITZ MD Jun 10, 2021 10:46
--- NOTE | 2021-06-10 11:11 | Consultation-Cardiology ---
HPI-Cardiology Cardiology Consultation: Date of Consultation 06/10/2021. Date of Admission 06/09/2021. Attending Physician Daisha Ma MD Admitting Physician Beau Berry DO Consulting Physician JOVI ALMAGUER JR, MD HPI: Time Seen by a Provider: 11:05 Chief Complaint: Reason for consultation: Possible NSTEMI. Demetrius is currently in the intensive care unit being treated for sepsis which is currently felt to be due to severe urinary tract infection. The patient is on Precedex and fairly sedated. He will move to voice but is not opening his eyes or following commands. I am not able to obtain any history from the patient. I did speak with his nurse as well as a son and daughter who were at the bedside. According to the family members, the patient has a history of prostate carcinoma with a chronic indwelling urinary catheter, hypertension, hypercholesterolemia, and dementia. He lives in independent living with his and Berkley. Apparently, he has not felt well for the past few days. Yesterday he would not get out of bed. His called the facility nurse who then called EMS. He was brought to the hospital for further evaluation. He was felt to be in sepsis secondary to severe urinary tract infection. He was also found to have an elevated troponin level. As such, a cardiology consultation was requested. His family members do not know of any prior history of coronary artery disease in this patient. His daughter did state that he had been on antihypertensive medication but this was stopped within the past few weeks due to worsening renal function. Certain portions of this document may have been dictated utilizing voice recognition technology. Inherent to this technology, typographical and grammatical errors may exist. As much as I am diligent to identify and correct these mistakes, some errors may remain in the document. Review of Systems-Cardiology Review of Systems Other comments Not obtainable due to clinical status. CST-Fokiwl-Votpwc Hx Patient Social History Marrital Status: Employed/Student: retired Smoking Status: Never a Smoker Have you traveled recently?: No Alcohol Use?: No Immunizations Up To Date Date of Pneumonia Vaccine: Nov 13, 2011 Date of Influenza Vaccine: Aug 11, 2014 Past Medical History PMH As described under Assessment. Family Medical History Family Medical History: Not obtainable due to clinical status. Allergies and Home Medications Allergies Coded Allergies: No Known Drug Allergies (Unverified , 12/16/10) Home Medications Aspirin 81 Mg Chew, 81 MG PO DAILY, (Reported) Donepezil Hcl 5 Mg Tab, 5 MG GT DAILY, (Reported) Hydrochlorothiazide 25 Mg Tab, 25 MG PO DAILY, (Reported) Simvastatin 20 Mg Tab, 20 MG PO DAILY, (Reported) Patient Home Medication List Home Medication List Reviewed: Yes Exam Vital Signs Vital Signs Date Time Temp Pulse Resp B/P (MAP) Pulse Ox O2 Delivery O2 Flow Rate FiO2 06/10/21 10:00 76 12 98/62 (74) 96 Nasal Cannula 2.00 06/10/21 08:00 36.6 Physical Exam General: Sedated. No acute distress. Well nourished and appears stated age. Eye: Conjunctivae are clear. There are no xanthelasma. HENT: Normocephalic. Atraumatic. Carotid pulsations 2/2 without bruits. Neck: Jugular venous pressure does not appear elevated. No thyromegaly appreciated. Respiratory: Lungs are clear to auscultation. Respirations are non-labored. Breath sounds are equal. Symmetrical chest wall expansion. Cardiovascular: Normal rate. Regular rhythm. No murmur. No gallop. Point of maximal impulse is not appear displaced. Good pulses equal in all extremities. No edema. Gastrointestinal: Soft. Normal bowel sounds. Skin: Skin turgor is normal. There is no pallor. Musculoskeletal: No obvious joint deformity identified. Neurologic: Sedated. Psychiatric: Not obtainable due to sedation. Labs Laboratory Tests Test 06/09/21 17:20 06/09/21 18:45 06/09/21 19:31 06/09/21 22:05 Range/Units White Blood Count 15.9 H 4.3-11.0 10^3/uL Red Blood Count 4.60 4.30-5.52 10^6/uL Hemoglobin 14.2 13.3-17.7 g/dL Hematocrit 44 40-54 % Mean Corpuscular Volume 95 80-99 fL Mean Corpuscular Hemoglobin 31 25-34 pg Mean Corpuscular Hemoglobin Concent 33 32-36 g/dL Red Cell Distribution Width 12.8 10.0-14.5 % Platelet Count 173 130-400 10^3/uL Mean Platelet Volume 10.9 9.0-12.2 fL Immature Granulocyte % (Auto) 1 % Neutrophils (%) (Auto) 95 H 42-75 % Lymphocytes (%) (Auto) 2 L 12-44 % Monocytes (%) (Auto) 1 0-12 % Eosinophils (%) (Auto) 2 0-10 % Basophils (%) (Auto) 0 0-10 % Neutrophils # (Auto) 15.0 H 1.8-7.8 10^3/uL Lymphocytes # (Auto) 0.3 L 1.0-4.0 10^3/uL Monocytes # (Auto) 0.1 0.0-1.0 10^3/uL Eosinophils # (Auto) 0.2 0.0-0.3 10^3/uL Basophils # (Auto) 0.1 0.0-0.1 10^3/uL Immature Granulocyte # (Auto) 0.1 0.0-0.1 10^3/uL Neutrophils % (Manual) 88 % Lymphocytes % (Manual) 1 % Monocytes % (Manual) 1 % Eosinophils % (Manual) 0 % Basophils % (Manual) 0 % Band Neutrophils 10 % Blood Morphology Comment NORMAL Urine Color YELLOW Urine Clarity CLEAR Urine pH 5.5 5-9 Urine Specific [place] 1.020 1.016-1.022 Urine Protein 1+ H NEGATIVE Urine Glucose (UA) NEGATIVE NEGATIVE Urine Ketones NEGATIVE NEGATIVE Urine Nitrite NEGATIVE NEGATIVE Urine Bilirubin NEGATIVE NEGATIVE Urine Urobilinogen 0.2 < = 1.0 MG/DL Urine Leukocyte Esterase 1+ H NEGATIVE Urine RBC (Auto) TRACE-I NEGATIVE Urine RBC 0-2 /HPF Urine WBC 5-10 H /HPF Urine Squamous Epithelial Cells NONE /HPF Urine Crystals NONE /LPF Urine Bacteria LARGE H /HPF Urine Casts NONE /LPF Urine Mucus NEGATIVE /LPF Urine Culture Indicated CULTURE PENDING Sodium Level 144 135-145 MMOL/L Potassium Level 3.5 L 3.6-5.0 MMOL/L Chloride Level 110 H 98-107 MMOL/L Carbon Dioxide Level 14 L 21-32 MMOL/L Anion Gap 20 H 5-14 MMOL/L Blood Urea Nitrogen 27 H 7-18 MG/DL Creatinine 2.34 H 0.60-1.30 MG/DL Estimat Glomerular Filtration Rate 27 BUN/Creatinine Ratio 12 Glucose Level 83 70-105 MG/DL Lactic Acid Level 6.92 *H 8.77 *H 8.98 *H 0.50-2.00 MMOL/L Calcium Level 8.9 8.5-10.1 MG/DL Corrected Calcium 9.2 8.5-10.1 MG/DL Total Bilirubin 0.4 0.1-1.0 MG/DL Aspartate Amino Transf (AST/SGOT) 23 5-34 U/L Alanine Aminotransferase (ALT/SGPT) 13 0-55 U/L Alkaline Phosphatase 109 40-136 U/L Total Protein 6.3 L 6.4-8.2 GM/DL Albumin 3.6 3.2-4.5 GM/DL Influenza Type A (RT-PCR) Not Detected Not Detecte Influenza Type B (RT-PCR) Not Detected Not Detecte SARS-CoV-2 RNA (RT-PCR) Not Detected Not Detecte Prothrombin Time 17.1 H 12.2-14.7 SEC INR Comment 1.4 0.8-1.4 Activated Partial Thromboplast Time 39 H 24-35 SEC Test 06/09/21 23:50 06/10/21 02:15 06/10/21 04:05 06/10/21 04:25 Range/Units Lactic Acid Level 8.89 *H 6.83 *H 8.50 *H 0.50-2.00 MMOL/L White Blood Count 24.2 H 4.3-11.0 10^3/uL Red Blood Count 4.15 L 4.30-5.52 10^6/uL Hemoglobin 12.8 L 13.3-17.7 g/dL Hematocrit 40 40-54 % Mean Corpuscular Volume 95 80-99 fL Mean Corpuscular Hemoglobin 31 25-34 pg Mean Corpuscular Hemoglobin Concent 32 32-36 g/dL Red Cell Distribution Width 13.2 10.0-14.5 % Platelet Count 139 130-400 10^3/uL Mean Platelet Volume 10.9 9.0-12.2 fL Immature Granulocyte % (Auto) 3 % Neutrophils (%) (Auto) 91 H 42-75 % Lymphocytes (%) (Auto) 2 L 12-44 % Monocytes (%) (Auto) 4 0-12 % Eosinophils (%) (Auto) 0 0-10 % Basophils (%) (Auto) 0 0-10 % Neutrophils # (Auto) 22.0 H 1.8-7.8 10^3/uL Lymphocytes # (Auto) 0.4 L 1.0-4.0 10^3/uL Monocytes # (Auto) 1.0 0.0-1.0 10^3/uL Eosinophils # (Auto) 0.0 0.0-0.3 10^3/uL Basophils # (Auto) 0.0 0.0-0.1 10^3/uL Immature Granulocyte # (Auto) 0.7 H 0.0-0.1 10^3/uL Sodium Level 145 135-145 MMOL/L Potassium Level 3.8 3.6-5.0 MMOL/L Chloride Level 114 H 98-107 MMOL/L Carbon Dioxide Level 15 L 21-32 MMOL/L Anion Gap 16 H 5-14 MMOL/L Blood Urea Nitrogen 31 H 7-18 MG/DL Creatinine 2.25 H 0.60-1.30 MG/DL Estimat Glomerular Filtration Rate 28 BUN/Creatinine Ratio 14 Glucose Level 78 70-105 MG/DL Calcium Level 7.6 L 8.5-10.1 MG/DL Corrected Calcium 8.3 L 8.5-10.1 MG/DL Phosphorus Level 1.8 L 2.3-4.7 MG/DL Magnesium Level 1.3 L 1.6-2.4 MG/DL Total Bilirubin 0.3 0.1-1.0 MG/DL Aspartate Amino Transf (AST/SGOT) 35 H 5-34 U/L Alanine Aminotransferase (ALT/SGPT) 17 0-55 U/L Alkaline Phosphatase 76 40-136 U/L Total Protein 5.4 L 6.4-8.2 GM/DL Albumin 3.1 L 3.2-4.5 GM/DL Procalcitonin 436.54 H <0.10 NG/ML Blood Gas Puncture Site L RAD Blood Gas Patient Temperature 36.0 Arterial Blood pH 7.26 *L 7.37-7.43 Arterial Blood Partial Pressure CO2 28 L 35-45 MMHG Arterial Blood Partial Pressure O2 74 L 79-93 MMHG Arterial Blood HCO3 12 *L 23-27 MMOL/L Arterial Blood Total CO2 13.3 L 21.0-31.0 MMOL/L Arterial Blood Oxygen Saturation 94 94-100 % Arterial Blood Base Excess -13.5 L -2.5-2.5 MMOL/L Eddi Test YES-POS Blood Gas Ventilator Setting NO Blood Gas Inspired Oxygen 3 L NC Troponin I 0.879 *H <0.028 NG/ML B-Type Natriuretic Peptide 1450.8 H <100.0 PG/ML Test 06/10/21 06:25 06/10/21 09:00 06/10/21 11:03 Range/Units Lactic Acid Level 5.82 *H 3.55 *H 0.50-2.00 MMOL/L D-Dimer > 20.00 *H 0.00-0.49 UG/ML ECG Impression ECG Comment Sinus tachycardia at 110 bpm with possible old inferior and anterior infarcts with diffuse nonspecific T wave changes. Diagnosis/Problems Diagnosis/Problems (1) Non-ST elevation myocardial infarction (NSTEMI), initial care episode Assessment & Plan: There has not been any reported complaint of chest pain although the patient is presently sedated with Precedex. His electrocardiogram looks consistent with an old inferior and anterior infarct but no acute ST changes at rest. Some of the troponin elevation could certainly be related to septic shock on top of chronic kidney disease with acute decompensation. However, I cannot completely exclude a type I or type II non-ST elevation myocardial infarction. I will place patient on low strength aspirin. We will obtain an echocardiogram later today. He will be undergoing a CT of the abdomen and pelvis to further evaluate his chronic indwelling urinary catheter. If he does not need any open surgical procedures, I would suggest starting him on intravenous heparin. We will trend the troponin levels. Given his septic shock, he is not presently a candidate for early invasive management with a cardiac catheterization. I also will start high-dose statin medication. (2) Essential hypertension Assessment & Plan: He had been on hydrochlorothiazide at home but this was reportedly stopped due to worsening renal function. He is now in septic shock. If he recovers from this acute illness and becomes hypertensive, then we may consider starting an alternative antihypertensive agent. (3) Mixed hyperlipidemia Assessment & Plan: In light of the possible NSTEMI, I have changed his simvastatin over to intensive dose rosuvastatin. I also added a lipid panel to the blood sample from this morning. (4) Septic shock Status: Acute Assessment & Plan: As above, this may be causing some of his metabolic and laboratory derangements. We will proceed as above. Hospitalist and urology are following the patient along with the eICU. (5) Acute kidney injury superimposed on chronic kidney disease Assessment & Plan: Likely related to the sepsis and shock. This may have also caused the BNP, troponin, and D-dimer levels all to become elevated. JOVI ALMAGUER JR, MD Jun 10, 2021 11:11
[2021-06-10] MEDS ORDERED: ASPIRIN 81 MG CHEW (CHILDREN'S ASA) PO ONE (11:15)
--- NOTE | 2021-06-10 12:41 | Diagnostic Imaging Report ---
PROCEDURE: CT abdomen and pelvis without contrast. TECHNIQUE: Multiple contiguous axial images were obtained through the abdomen and pelvis without the use of intravenous contrast. Auto Exposure Controls were utilized during the CT exam to meet ALARA standards for radiation dose reduction. INDICATION: Sepsis. History of bladder and prostate cancer. COMPARISON: 02/11/2011. FINDINGS: The heart is enlarged. Bibasilar opacities are present. Postsurgical changes of cystectomy and ileal conduit are visualized. Ostomy is present in the right lower quadrant. There is mild prominence of the left ureter without evidence of hydronephrosis. No evidence of renal calculi. There is mild nonspecific perinephric fat stranding. No evidence of renal mass. There is hepatic steatosis. The gallbladder is unremarkable. The spleen, pancreas, and adrenal glands have a normal appearance. There is no pathologically enlarged mesenteric or retroperitoneal adenopathy. No bowel obstruction. Diverticulosis of the descending and sigmoid colon is seen. No acute inflammatory changes are present. There is bowel wall thickening involving the sigmoid colon. There is no free fluid or free air. No acute osseous abnormalities. There is no free air, loculated collection, or adenopathy in the pelvis. IMPRESSION: 1. Diverticulosis of the descending and sigmoid colon with bowel wall thickening involving the sigmoid colon. No significant demi-colonic inflammatory changes are seen. Findings may represent subacute to chronic diverticulitis. No free fluid or free air. 2. Post surgical changes of cystectomy and ileal conduit with mildly prominent left ureter. No evidence of hydronephrosis. 3. Hepatic steatosis. 4. Bibasilar opacities likely representing atelectasis. 5. Mild cardiomegaly. Dictated by: Dictated on workstation # [id number]
--- NOTE | 2021-06-10 12:47 | CONSULTATION REPORT ---
DATE OF SERVICE: 06/10/2021 ATTENDING PHYSICIAN: Dr. Ma. SUMMARY: After reviewing the patient's record, interviewing his family, this is an 80-year-old white man known to me for many years, has history of CA of the prostate that was treated with a robotic-assisted laparoscopic prostatectomy at by Dr. 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 Simeon. He has been following with on a regular basis as well as in my office every 6 months. Recently, he was found to have some renal insufficiency and was under the care of soldering machine tender, saw him couple of times. He has been admitted with urosepsis in kind of critical condition. His white count from 15.9 yesterday jumped to 24.2 today. His creatinine was 2.34 yesterday, today 2.25. He is in somewhat critical situation. IMPRESSION: Urosepsis. PLAN: We will get a KUB and a noncontrast CT scan of the abdomen and pelvis, but if the condition remains critical or if he needs any kind of intervention for his kidneys whether surgical by nephrostomy tube insertions or stents or a nephrology need, then I would recommend that he will be transferred to a tertiary center either in [place] or at , was explained to the family and discussed with Dr. Ma. Job ID: [id number] DocumentID: [id number] Dictated Date: 06/10/2021 10:07:22 Cocoa Room Operator Date: 06/10/2021 12:47:01 Dictated By: JESUS SYKES MD
--- NOTE | 2021-06-10 13:16 | Diagnostic Imaging Report ---
REASON FOR EXAM: Sepsis. COMPARISON: 06/06/2021. TECHNIQUE: Frontal supine view of the abdomen FINDINGS: The bowel gas pattern is nondistended. No large collection of free intraperitoneal air is seen. Moderate amount of stool is seen in the colon. No abnormal extraosseous calcifications are present. The osseous structures are age-appropriate. Surgical clips are seen in the pelvis. IMPRESSION: 1. No evidence of bowel obstruction or large collection of free intraperitoneal air. 2. Moderate amount of stool in the rectosigmoid colon. Dictated by: Dictated on workstation # [id number]
[2021-06-10] MEDS: ENOXAPARIN 80 MG/0.8 ML (LOVENOX) SYR SC SCH (15:53)
[2021-06-10 18:03] LABS: ABG BASE EXCESS -4.5 MMOL/L (-2.5-2.5); ABG OXYGEN SATURATION 99 % (94-100); ABG PCO2 31 MMHG (35-45); ABG PH 7.41 (7.37-7.43); ABG PO2 149 MMHG (79-93); ABG TCO2 20.3 MMOL/L (21.0-31.0)
[2021-06-10 18:05] LABS: ALLENS TEST YES-POS; INSPIRED O2 2L; PATIENT TEMP 36.6; VENTILATOR NO
--- NOTE | 2021-06-10 19:44 | Tele-ICU Progress Note ---
Progress Note Called by the nurse with declining U/O in a septic Pt with UTI. CXR no signs of fluid over load. MACKENZIE/CKD. Lactate trending down and Pt just got off Levophed. 500 ml bolus LR ordered. D/W the bedside nurse. Interventions Minor-Other: Low U/O Focused Exam Lactate Level 06/10/21 06:25: Lactic Acid Level 5.82*H 06/10/21 09:00: Lactic Acid Level 3.55*H 06/10/21 11:03: Lactic Acid Level 3.45*H Height, Weight, BMI Height: 5'9.00" Weight: 182lbs. oz. 82.240165va; 27.81 BMI Method: JUAN ROYAL MD Jun 10, 2021 19:44
[2021-06-10] MEDS ORDERED: HALOPERIDOL 5 MG/ML (HALDOL) VIAL ONE (20:41)
[2021-06-10] MEDS ORDERED: HALOPERIDOL 5 MG/ML (HALDOL) VIAL IV ONE (20:45)
[2021-06-10 20:56] LABS: ABG BASE EXCESS -12.8 MMOL/L (-2.5-2.5); ABG OXYGEN SATURATION 85 % (94-100); ABG PCO2 38 MMHG (35-45); ABG PO2 65 MMHG (79-93)
[2021-06-10 20:59] LABS: ALLENS TEST YES-POS; INSPIRED O2 2L O2; PATIENT TEMP 37; VENTILATOR NO
[2021-06-10] MEDS ORDERED: RT-IPRATROPIUM (ATROVENT) 0.5MG/2.5ML AMP IH ONE ×2 (21:00)
[2021-06-10 21:01] LABS: ABG PH 7.19 (7.37-7.43)
--- NOTE | 2021-06-10 21:05 | Tele-ICU Progress Note ---
Progress Note cALLED BY THE NURSE WITH PT CONFUSED AND PROBABLY SUNDOWNING. On Precedex Appears tachypneic and tachycardic, Per nurse's exam breath sounds diminished. ABG, CXR and BIPAP , Atrovent neb ordered. Pt is receiving IVFs. Will f/u. Low threshold for intubation if resp status worsens. D/W the bedside nurse. Focused Exam Lactate Level 06/10/21 06:25: Lactic Acid Level 5.82*H 06/10/21 09:00: Lactic Acid Level 3.55*H 06/10/21 11:03: Lactic Acid Level 3.45*H Height, Weight, BMI Height: 5'9.00" Weight: 182lbs. oz. 82.492014cf; 27.81 BMI Method: JUAN ROYAL MD Jun 10, 2021 21:05
[2021-06-10 21:17] VITALS: BP 156/75
--- NOTE | 2021-06-10 21:17 | Diagnostic Imaging Report ---
INDICATION: Respiratory distress. COMPARISON: 06/10/2021 at 4:33 a.m. EXAMINATION: Single view of the chest was obtained. FINDINGS: Well-positioned right IJ catheter. There is no pneumothorax. The heart is prominent but stable. There is no focal infiltrate, effusion or pneumothorax. No pulmonary edema. IMPRESSION: Stable cardiac enlargement without pulmonary edema or acute infiltrate. Dictated by: Dictated on workstation # [id number]
[2021-06-10] MEDS ORDERED: SODIUM BICARB 8.4% 50 MEQ/50 ML VIAL IV ONE (21:30)
--- NOTE | 2021-06-10 21:33 | Tele-ICU Progress Note ---
Progress Note Ordered intubation. Sedation/ analgesia , Vent and abg, CXR ordered. ABG with severe metabolic acidosis and Pt with increased WOB. Will F/U . Pt is on Bicarb drip. Focused Exam Lactate Level 06/10/21 06:25: Lactic Acid Level 5.82*H 06/10/21 09:00: Lactic Acid Level 3.55*H 06/10/21 11:03: Lactic Acid Level 3.45*H Height, Weight, BMI Height: 5'9.00" Weight: 182lbs. oz. 82.977516bh; 27.81 BMI Method: JUAN ROYAL MD Jun 10, 2021 21:33
--- NOTE | 2021-06-10 21:42 | Diagnostic Imaging Report ---
INDICATION: Intubated. COMPARISON: 06/10/2021 at 9:00 p.m. EXAMINATION: Single view of the chest was obtained. FINDINGS: ET tube in the mid trachea. The NG tube is well within the stomach. There is effusion atelectasis in the left base. The right lung is stable. There is no pneumothorax. The heart is prominent. The right IJ catheter is unchanged. IMPRESSION: 1. Well-positioned support devices. 2. No pneumothorax. 3. New atelectasis and/or trace effusion left base. Dictated by: Dictated on workstation # [id number]
[2021-06-10 21:43] LABS: WHITE BLOOD COUNT 19.9 10^3/uL (4.3-11.0)
[2021-06-10 21:45] LABS: HEMOGLOBIN 11.5 g/dL (13.3-17.7); MEAN PLATELET VOLUME 10.9 fL (9.0-12.2)
--- NOTE | 2021-06-10 21:45 | Procedure/Intervention Note ---
Procedures/Interventions Date of ETT Placement: Jun 10, 2021 Time of ETT Placement: 21:20 Intubation Method: orotracheal Tube Size: 7.5 Medications: Etomidate, Rocuronium Positive End Tide CO2: Yes Breath Sounds after Intubation: bilateral-equal Intubation Complications: no complications Post Intubation Xray: Yes Care turned over to: I was called to ICU by housefellow for intubation as ordered by eICU due to declining respiratory and mental status. He was sedated and paralyzed with etomidate 20 mg and rocuronium 50 mg. Size 7.5 endotracheal tube was passed between the vocal cords. Once the balloon was passed the cords it was inflated. There was positive color change on the colorimeter, fogging the ET tube, chest rise and fall with breath sounds bilaterally and maintenance of oxygen saturation at 100% SPO2. Tube was secured. ROSA WATTS APRN Jun 10, 2021 21:45
[2021-06-10] MEDS: PROPOFOL DRIP (ICU) 100 ML IV SCH (21:50)
[2021-06-10 21:53] LABS: ALBUMIN 3.1 GM/DL (3.2-4.5); POTASSIUM 4.1 MMOL/L (3.6-5.0)
[2021-06-10 21:55] LABS: CALCIUM 7.1 MG/DL (8.5-10.1)
[2021-06-10 21:56] LABS: TOTAL PROTEIN 5.5 GM/DL (6.4-8.2)
[2021-06-10 21:58] LABS: BILIRUBIN,TOTAL 0.5 MG/DL (0.1-1.0)
[2021-06-10 22:00] LABS: CREATININE SERUM 2.13 MG/DL (0.60-1.30)
[2021-06-10] MEDS: LACTATED RINGERS 1,000 ML IV SCH (22:38)
[2021-06-10] MEDS: ROSUVASTATIN 20 MG (CRESTOR) TABLET PO SCH (22:52)
[2021-06-10 22:55] LABS: ABG BASE EXCESS -3.1 MMOL/L (-2.5-2.5); ABG OXYGEN SATURATION 95 % (94-100); ABG PCO2 32 MMHG (35-45); ABG PH 7.43 (7.37-7.43); ABG PO2 72 MMHG (79-93); ABG TCO2 21.5 MMOL/L (21.0-31.0)
[2021-06-10 22:56] LABS: ALLENS TEST YES-POS; INSPIRED O2 50%; PATIENT TEMP 38.6; VENTILATOR YES
[2021-06-11] MEDS: LACTATED RINGERS 1,000 ML IV SCH (01:54)
[2021-06-11] MEDS ORDERED: RT-IPRATROPIUM (ATROVENT) 0.5MG/2.5ML AMP IH ONE (02:18)
[2021-06-11 02:19] VITALS: BP 97/64
[2021-06-11] MEDS ORDERED: NOREPINEPHRINE 8 MG/250 ML 250 ML IV ONE (03:32)
[2021-06-11] MEDS: SODIUM BICARBONATE 8.4% VIAL 100 MEQ in 1/2 NS IV SOLUTION 1,000 ML IV SCH ×2 (03:35→16:00)
[2021-06-11] MEDS: NOREPINEPHRINE 8 MG/250 ML 250 ML IV SCH (03:36)
[2021-06-11] MEDS: PROPOFOL DRIP (ICU) 100 ML IV SCH ×3 (04:41→20:33)
[2021-06-11 05:01] LABS: ABG BASE EXCESS 0.1 MMOL/L (-2.5-2.5); ABG OXYGEN SATURATION 99 % (94-100); ABG PCO2 32 MMHG (35-45); ABG PH 7.47 (7.37-7.43); ABG PO2 118 MMHG (79-93); ABG TCO2 24.5 MMOL/L (21.0-31.0)
[2021-06-11 05:04] LABS: BASOPHILS % (AUTO) 0 % (0-10); EOSINOPHILS % (AUTO) 0 % (0-10); HEMATOCRIT 32 % (40-54); HEMOGLOBIN 10.9 g/dL (13.3-17.7); LYMPHOCYTES # (AUTO) 1.4 10^3/uL (1.0-4.0); LYMPHOCYTES % (AUTO) 10 % (12-44); MEAN CORPUSCULAR HEMOGLOBIN 31 pg (25-34); MEAN CORPUSCULAR HGB CONC 34 g/dL (32-36); MEAN CORPUSCULAR VOLUME 93 fL (80-99); MEAN PLATELET VOLUME 11.5 fL (9.0-12.2); MONOCYTES # (AUTO) 0.3 10^3/uL (0.0-1.0); MONOCYTES % (AUTO) 2 % (0-12); NEUTROPHILS # (AUTO) 11.2 10^3/uL (1.8-7.8); NEUTROPHILS % (AUTO) 75 % (42-75); PLATELET COUNT 102 10^3/uL (130-400); WHITE BLOOD COUNT 14.9 10^3/uL (4.3-11.0)
[2021-06-11 05:05] LABS: ALLENS TEST YES-POS
[2021-06-11 05:06] LABS: INSPIRED O2 40%; PATIENT TEMP 36.4; VENTILATOR YES
[2021-06-11 05:20] LABS: ALBUMIN 2.8 GM/DL (3.2-4.5); POTASSIUM 3.6 MMOL/L (3.6-5.0)
[2021-06-11 05:21] LABS: CALCIUM 6.8 MG/DL (8.5-10.1)
[2021-06-11 05:22] LABS: TOTAL PROTEIN 4.9 GM/DL (6.4-8.2)
[2021-06-11 05:24] LABS: BILIRUBIN,TOTAL 0.5 MG/DL (0.1-1.0)
[2021-06-11 05:25] LABS: PHOSPHORUS 2.8 MG/DL (2.3-4.7)
[2021-06-11 05:26] LABS: CREATININE SERUM 2.02 MG/DL (0.60-1.30)
[2021-06-11 05:29] LABS: MAGNESIUM 2.2 MG/DL (1.6-2.4)
[2021-06-11] MEDS: POTASSIUM CL 10MEQ/50ML IVPB 50 ML IV SCH (05:32)
[2021-06-11] MEDS: MAGNESIUM 1 GM/100 ML IVPB 100 ML IV SCH (05:32)
[2021-06-11] MEDS: KCL 20 MEQ TAB (K-DUR) PO SCH (05:33)
[2021-06-11] MEDS: CEFEPIME 1,000 MG/SWFI 10 ML IV PUSH IV SCH ×4 (06:21→19:12)
[2021-06-11 06:41] VITALS: BP 123/70
[2021-06-11] MEDS: ASPIRIN 81 MG CHEW (CHILDREN'S ASA) PO SCH (08:04)
[2021-06-11] MEDS: PANTOPRAZOLE 40 MG (PROTONIX) VIAL IV SCH (08:04)
--- NOTE | 2021-06-11 09:11 | Progress Note - Urology ---
Progress Note-Urology Progress Notes/Assess & Plan Progress/Assessment & Plan ON RESPIRATOR. LABS BETTER. UO SLIGHTLY BETTER. STOMA OK Final Diagnosis UROSEPSIS JESUS SYKES MD Jun 11, 2021 09:11
--- NOTE | 2021-06-11 09:23 | Cardiology Progress Note ---
Progress Note-Cardiology Events since last exam Date Seen by Provider: Jun 11, 2021 Time Seen by Provider: 09:18 Events since last exam We are seeing him due to possible NSTEMI. Last evening his respiratory status declined and he was intubated. He is now intubated and sedated. Certain portions of this document may have been dictated utilizing voice recognition technology. Inherent to this technology, typographical and grammatical errors may exist. As much as I am diligent to identify and correct these mistakes, some errors may remain in the document. Vitals Last set of Vitals Signs Vital Signs 06/11/21 06/11/21 06/11/21 06:41 08:00 08:11 Temp 36.0 Pulse 64 Resp 15 B/P (MAP) 123/77 (92) Pulse Ox 96 O2 Delivery Mechanical Ventilator O2 Flow Rate 35.00 FiO2 35 Labs Labs Laboratory Tests 06/10/21 21:35 06/11/21 04:50 Exam Vital Signs Vital Signs Date Time Temp Pulse Resp B/P (MAP) Pulse Ox O2 Delivery O2 Flow Rate FiO2 06/11/21 08:11 36.0 06/11/21 08:00 64 123/77 (92) Mechanical Ventilator 35.00 06/11/21 06:41 15 96 35 Physical Exam General: Intubated and sedated. Well nourished and appears stated age. Eye: Conjunctivae are clear. There are no xanthelasma. HENT: Normocephalic. Atraumatic. Carotid pulsations 2/2 without bruits. Neck: Jugular venous pressure does not appear elevated. No thyromegaly appreciated. Respiratory: Symmetrical expansion bilaterally. Coarse breath sounds to the ventilator. Cardiovascular: Normal rate. Regular rhythm. No murmur. No gallop. Point of maximal impulse is not appear displaced. Good pulses equal in all extremities. No edema. Gastrointestinal: Soft. Normal bowel sounds. Skin: Skin turgor is normal. There is no pallor. Musculoskeletal: No obvious deformities. Neurologic: Intubated and sedated. Psychiatric: Not obtainable due to clinical status. Labs Laboratory Tests Test 06/10/21 11:03 06/10/21 11:04 06/10/21 17:54 06/10/21 20:50 Range/Units Lactic Acid Level 3.45 *H 0.50-2.00 MMOL/L Troponin I 0.826 *H <0.028 NG/ML Triglycerides Level 171 H <150 MG/DL Cholesterol Level 108 < 200 MG/DL LDL Cholesterol Direct 47 1-129 MG/DL VLDL Cholesterol 34 5-40 MG/DL HDL Cholesterol 22 L 40-60 MG/DL Blood Gas Puncture Site R RADIAL R RAD Blood Gas Patient Temperature 36.6 37 Arterial Blood pH 7.41 7.19 *L 7.37-7.43 Arterial Blood Partial Pressure CO2 31 L 38 35-45 MMHG Arterial Blood Partial Pressure O2 149 H 65 L 79-93 MMHG Arterial Blood HCO3 19 L 14 *L 23-27 MMOL/L Arterial Blood Total CO2 20.3 L 15.0 L 21.0-31.0 MMOL/L Arterial Blood Oxygen Saturation 99 85 L 94-100 % Arterial Blood Base Excess -4.5 L -12.8 L -2.5-2.5 MMOL/L Eddi Test YES-POS YES-POS Blood Gas Ventilator Setting NO NO Blood Gas Inspired Oxygen 2L 2L O2 Test 06/10/21 21:35 06/10/21 22:39 06/10/21 22:45 06/11/21 04:50 Range/Units White Blood Count 19.9 H 14.9 H 4.3-11.0 10^3/uL Red Blood Count 3.71 L 3.48 L 4.30-5.52 10^6/uL Hemoglobin 11.5 L 10.9 L 13.3-17.7 g/dL Hematocrit 35 L 32 L 40-54 % Mean Corpuscular Volume 94 93 80-99 fL Mean Corpuscular Hemoglobin 31 31 25-34 pg Mean Corpuscular Hemoglobin Concent 33 34 32-36 g/dL Red Cell Distribution Width 13.3 13.5 10.0-14.5 % Platelet Count 115 L 102 L 130-400 10^3/uL Mean Platelet Volume 10.9 11.5 9.0-12.2 fL Percent Immature Platelet Fraction 5.7 0.0-7.6 % Sodium Level 146 H 146 H 135-145 MMOL/L Potassium Level 4.1 3.6 3.6-5.0 MMOL/L Chloride Level 112 H 110 H 98-107 MMOL/L Carbon Dioxide Level 17 L 23 21-32 MMOL/L Anion Gap 17 H 13 5-14 MMOL/L Blood Urea Nitrogen 40 H 42 H 7-18 MG/DL Creatinine 2.13 H 2.02 H 0.60-1.30 MG/DL Estimat Glomerular Filtration Rate 30 32 BUN/Creatinine Ratio 19 21 Glucose Level 105 93 70-105 MG/DL Calcium Level 7.1 L 6.8 L 8.5-10.1 MG/DL Corrected Calcium 7.8 L 7.8 L 8.5-10.1 MG/DL Total Bilirubin 0.5 0.5 0.1-1.0 MG/DL Aspartate Amino Transf (AST/SGOT) 72 H 117 H 5-34 U/L Alanine Aminotransferase (ALT/SGPT) 43 111 H 0-55 U/L Alkaline Phosphatase 77 70 40-136 U/L Total Protein 5.5 L 4.9 L 6.4-8.2 GM/DL Albumin 3.1 L 2.8 L 3.2-4.5 GM/DL Triglycerides Level 170 H <150 MG/DL Glucometer 107 70-110 MG/DL Blood Gas Puncture Site R RAD R RAD Blood Gas Patient Temperature 38.6 36.4 Arterial Blood pH 7.43 7.47 H 7.37-7.43 Arterial Blood Partial Pressure CO2 32 L 32 L 35-45 MMHG Arterial Blood Partial Pressure O2 72 L 118 H 79-93 MMHG Arterial Blood HCO3 21 L 24 23-27 MMOL/L Arterial Blood Total CO2 21.5 24.5 21.0-31.0 MMOL/L Arterial Blood Oxygen Saturation 95 99 94-100 % Arterial Blood Base Excess -3.1 L 0.1 -2.5-2.5 MMOL/L Eddi Test YES-POS YES-POS Blood Gas Ventilator Setting YES YES Blood Gas Inspired Oxygen 50% 40% Immature Granulocyte % (Auto) 13 % Neutrophils (%) (Auto) 75 42-75 % Lymphocytes (%) (Auto) 10 L 12-44 % Monocytes (%) (Auto) 2 0-12 % Eosinophils (%) (Auto) 0 0-10 % Basophils (%) (Auto) 0 0-10 % Neutrophils # (Auto) 11.2 H 1.8-7.8 10^3/uL Lymphocytes # (Auto) 1.4 1.0-4.0 10^3/uL Monocytes # (Auto) 0.3 0.0-1.0 10^3/uL Eosinophils # (Auto) 0.0 0.0-0.3 10^3/uL Basophils # (Auto) 0.0 0.0-0.1 10^3/uL Immature Granulocyte # (Auto) 1.9 H 0.0-0.1 10^3/uL Phosphorus Level 2.8 2.3-4.7 MG/DL Magnesium Level 2.2 1.6-2.4 MG/DL Diagnosis/Problems Diagnosis/Problems (1) Non-ST elevation myocardial infarction (NSTEMI), initial care episode Assessment & Plan: He was not reporting any chest discomfort prior to admission. His electrocardiogram looks consistent with an old inferior and anterior infarct but no acute ST changes at rest. Some of the troponin elevation could certainly be related to septic shock on top of chronic kidney disease with acute decompensation. However, I cannot completely exclude a type I or type II non-ST elevation myocardial infarction. I started low strength aspirin and he is getting therapeutic dose of Lovenox for not only the elevated troponin but an elevated D-dimer level. No beta-kushal due to shock requiring norepinephrine. His echocardiogram from 06/10 showed a low normal ejection fraction. Given his septic shock, he is not presently a candidate for early invasive management with a cardiac catheterization. We will follow along with you. (2) Essential hypertension Assessment & Plan: He had been on hydrochlorothiazide at home but this was reportedly stopped due to worsening renal function. He is now in septic shock. If he recovers from this acute illness and becomes hypertensive, then we may consider starting an alternative antihypertensive agent. (3) Mixed hyperlipidemia Assessment & Plan: In light of the possible NSTEMI, I changed his simvastatin over to intensive dose rosuvastatin. His LDL level is at goal on the labs obtained during this admission. This will need to be followed up after discharge. (4) Septic shock Status: Acute Assessment & Plan: As above, this may be causing some of his metabolic and laboratory derangements. We will proceed as above. Hospitalist and urology are following the patient along with the eICU. (5) Acute kidney injury superimposed on chronic kidney disease Assessment & Plan: Likely related to the sepsis and shock. This may have also caused the BNP, troponin, and D-dimer levels all to become elevated. JOVI ALMAGUER JR, MD Jun 11, 2021 09:23
[2021-06-11] MEDS: NS IV 1000 ML 1,000 ML IV SCH ×2 (10:00→16:00)
--- NOTE | 2021-06-11 10:50 | Tele-ICU Progress Note ---
Subjective Date Seen by a Provider: Jun 11, 2021 Time Seen by a Provider: 10:46 Sepsis Event Evaluation Height, Weight, BMI Height: 5'9.00" Weight: 182lbs. oz. 82.192137du; 27.81 BMI Method: Focused Exam Lactate Level 06/10/21 09:00: Lactic Acid Level 3.55*H 06/10/21 11:03: Lactic Acid Level 3.45*H 06/11/21 09:15: Lactic Acid Level 2.36*H Lactic Acid Level Laboratory Tests Test 06/11/21 09:15 Lactic Acid Level 2.36 MMOL/L (0.50-2.00) *H Exam Exam Patient acknowledged, consented, and participated in this virtual visit which was conducted using real time audio/video Vital Signs Date Time Temp Pulse Resp B/P (MAP) Pulse Ox O2 Delivery O2 Flow Rate FiO2 06/11/21 08:11 36.0 06/11/21 08:00 64 123/77 (92) Mechanical Ventilator 35.00 06/11/21 07:00 63 06/11/21 06:41 61 15 96 35 06/11/21 06:20 Mechanical Ventilator 35.00 06/11/21 06:00 62 15 101/61 (74) 97 Mechanical Ventilator 40.00 06/11/21 05:00 65 15 111/72 (85) 97 Mechanical Ventilator 40.00 06/11/21 04:41 64 101/63 06/11/21 04:39 36.4 06/11/21 04:00 Mechanical Ventilator 40 06/11/21 04:00 67 14 107/64 (78) 97 Mechanical Ventilator 40.00 06/11/21 03:36 67 95/60 06/11/21 03:00 66 15 96/59 (71) 96 Mechanical Ventilator 40.00 06/11/21 02:30 Mechanical Ventilator 40.00 06/11/21 02:19 69 15 97 40 06/11/21 02:00 68 15 96/61 (73) 97 Mechanical Ventilator 50.00 06/11/21 01:00 69 06/11/21 01:00 69 15 88/60 (69) 97 Mechanical Ventilator 50.00 06/11/21 00:00 Mechanical Ventilator 50 06/11/21 00:00 69 14 99/63 (75) 99 Mechanical Ventilator 50.00 06/10/21 23:30 67 15 94/60 (71) 98 Mechanical Ventilator 50.00 06/10/21 23:29 97 06/10/21 23:16 68 84/53 06/10/21 23:01 36.6 06/10/21 23:00 70 57/46 06/10/21 22:00 77 14 83/57 (66) 96 Mechanical Ventilator 50.00 06/10/21 21:50 100 151/96 06/10/21 21:39 Mechanical Ventilator 50.00 06/10/21 21:17 82 14 95 50 06/10/21 21:17 Mechanical Ventilator 100.00 06/10/21 21:00 151 32 165/108 (127) 100 NIV Bilevel 100.00 06/10/21 20:55 NIV Bilevel 100.00 06/10/21 20:28 116 06/10/21 20:13 112 21 196/109 (138) Nasal Cannula 4.00 06/10/21 20:00 Nasal Cannula 4.00 06/10/21 19:31 Nasal Cannula 4.00 06/10/21 19:00 71 30 102/65 (77) 90 Nasal Cannula 2.00 06/10/21 19:00 71 06/10/21 18:00 67 22 119/73 (88) 94 Nasal Cannula 2.00 06/10/21 17:00 63 21 129/79 (96) 96 Nasal Cannula 2.00 06/10/21 16:00 36.0 06/10/21 16:00 73 29 83/55 (64) 91 Nasal Cannula 2.00 06/10/21 16:00 94 Nasal Cannula 3.00 06/10/21 15:00 68 22 123/73 (90) 97 Nasal Cannula 2.00 06/10/21 14:00 70 22 126/81 (96) 96 Nasal Cannula 2.00 06/10/21 13:00 70 23 110/71 (84) 96 Nasal Cannula 2.00 06/10/21 12:48 73 06/10/21 12:00 36.2 06/10/21 12:00 80 13 109/64 (79) 95 Nasal Cannula 2.00 06/10/21 12:00 94 Nasal Cannula 3.00 06/10/21 11:00 80 25 130/81 (97) 94 Nasal Cannula 2.00 I & O 06/11/21 07:00 Intake Total 3160 ml Output Total 825 ml Balance 2335 ml Height & Weight Height: 5'9.00" Weight: 182lbs. oz. 82.868770iu; 27.81 BMI Method: General Appearance: Chronically ill, Mild Distress HEENT: PERRL/EOMI, Moist Mucous Membranes Neck: Full Range of Motion, Supple Respiratory: No Accessory Muscle Use, Decreased Breath Sounds, Other (on 2lpm) Cardiovascular: Regular Rate, Rhythm, No Murmur Capillary Refill: Less Than 3 Seconds Gastrointestinal: non tender, soft, no organomegaly, other (urostomy) Extremity: No Calf Tenderness, No Pedal Edema, Slow Capillary Refill Neurologic/Psychiatric: Other (awakens with physical touch, answer one or two yes or no questions, otherwise falls back asleep) Skin: Mottled (toes) Results Lab Laboratory Tests 06/09/21 17:20 06/10/21 02:15 06/10/21 21:35 06/11/21 04:50 Assessment/Plan Assessment/Plan (Tele-ICU Physician , Progress Note ) BEDSIDE RN IS NOT AVAILABLE TO DISCUSS PATIENT, A/P DONE BASED ON DATA ABAILABLE IN EMR AND VIDEO ASSESSMENT BY E-CAMERA. FINAL PLAN /DECISIONS ARE BY ROUNDING BEDSIDE PHYSICIANS Available chart/ vitals / labs / Images reviewed Video assessment done using teleICU camera, rest of exam as per RN Events overnight : ? Afebrile hemodynamically stable, no pressors, I/O = pos 700 Drips: ? VENT SETTINGS. ac 15 - 480 - 35 % - peep 5 pap 18 ABG reviewed Sedation: RASS ? propofol Not candidate for SBTContraindications : Cardiovascular Stability / Sedation Score / FI02/PEEP / ABG / CXR As per RN exam : Consultants: cards , urology ? Hospital course: (06/09) 80yr old male admitted with confusion, UTI, and fever, INTUBATED , neg COVID A/P Acute resp failure - intubated for met acidois - ac 15 - 480 - 35 % - peep 5 pap 18 - might nebe a candidate for soon weaninf - can not decide without bedside input Sepsis UTI . bacteremia - klebsiella - on abx , await cx Elev trop / NSTEMI --ECHO 01/11/2021 - EF 50% grd I dst dsfn, No pulm HTN Elevated D dimer > 20 - NEED TO BE EVALUATED - Lovenox 80q12 Elev transaminases MACKENZIE ? CKD - improving , no hydro on Ct 06/09 Met acidosis - improving Developing effusion on LEFT on cxr 06/10 subacute to chronic diverticulitis by CT 06/09 history of CA of the prostate ->a robotic-assisted laparoscopic prostatectomy h/o cancer bladder and underwent a radical cystectomy with ileal loop diversion, Lines : R IJ (Central Line Necessity Reviewed) Stanton: OG: Nutrition: Analgesia: Anxiety/ delirium VTE Prophylaxis: lovenox 80 q 12 Stress Ulcer Prophylaxis: Glycemic Control: A total of 25 minutes of critical care time was devoted to this patient today, required to treat and/or prevent further deterioration of critical care condition ( as above ) . GORAN GATES MD Jun 11, 2021 10:50
[2021-06-11 10:51] VITALS: BP 123/70
[2021-06-11] MEDS: ENOXAPARIN 80 MG/0.8 ML (LOVENOX) SYR SC SCH (11:00)
[2021-06-11] MEDS ORDERED: MEMA10TA57 PO (11:18)
[2021-06-11] MEDS ORDERED: CHOL-34 PO (11:18)
[2021-06-11] MEDS ORDERED: ATOR10TA66 PO (11:18)
[2021-06-11] MEDS ORDERED: ASPI-1238 PO (11:18)
[2021-06-11] MEDS ORDERED: DONE10TA41 PO (11:18)
[2021-06-11 14:39] VITALS: BP 141/74
--- NOTE | 2021-06-11 16:08 | Progress Note - Hospitalist ---
Subjective HPI/CC On Admission Date Seen by Provider: Jun 11, 2021 Time Seen by Provider: 08:30 Pt is an 80yoCM witha PMH of prostate and bladder cancer, HTN, HLD, and dementia who presented to the ER due to weakness and altered mental status. He is unable to provide me any history. He has two daughters at the bedside who relay all history except for what is obtained from the chart. He is normally ambulatory and lives in an independent living ([facility] in [place]) who has not felt well for the past couple of days and was worse yesterday. Daughter reports that he would not get out of bed so they recommended that their mom call the facilitys' nurse. When the nurse arrived they called EMS. He was found to be in septic shock from a UTI and admitted to the ICU. Overnight he has continued to worsen and was quite agitated requiring precedex. He then became hypotensive and required central line placement for pressors. Subjective/Events-last exam He is intubated and sedated. Focused Exam Lactate Level 06/10/21 09:00: Lactic Acid Level 3.55*H 06/10/21 11:03: Lactic Acid Level 3.45*H 06/11/21 09:15: Lactic Acid Level 2.36*H Objective Exam Vital Signs Vital Signs Date Time Temp Pulse Resp B/P (MAP) Pulse Ox O2 Delivery O2 Flow Rate FiO2 06/11/21 16:00 124/87 06/11/21 14:39 75 21 95 35 06/11/21 14:01 35.00 06/11/21 13:03 36.3 06/11/21 12:00 Mechanical Ventilator Capillary Refill : Less Than 3 Seconds General Appearance: No Apparent Distress, WD/WN Respiratory: Normal Breath Sounds, No Respiratory Distress, Other (Intubated and mechanically ventilated) Cardiovascular: Regular Rate, Rhythm, No Edema, No Murmur Gastrointestinal: Normal Bowel Sounds, Soft, Other (Urostomy in place) Extremity: Normal Inspection, No Pedal Edema Neurologic/Psychiatric: Other (Sedated) Skin: Normal Color, Warm/Dry Results/Procedures Lab Laboratory Tests 06/10/21 21:35 06/11/21 04:50 Patient resulted labs reviewed. Imaging: Reviewed Imaging Report Assessment/Plan Assessment and Plan Assess & Plan/Chief Complaint Septic shock UTI GNR bacteremia MACKENZIE on CKD Lactic acidosis NSTEMI, likely type II Thrombocytopenia Elevated LFTs Continue Cefepime Nearly off pressors Increase IV fluids Troponin elevated, stable Likely type II MO from shock Cardiology consulted, appreciate recs HTN Hold home meds due to hypotension DVT ppx: Lovenox Critical Care Critically Ill Patient Diagnosis/Problems Diagnosis/Problems (1) Septic shock Status: Acute (2) Urinary tract infection Status: Acute Qualifiers: Urinary tract infection type: site unspecified Hematuria presence: without hematuria Qualified Codes: N39.0 - Urinary tract infection, site not specified (3) Acute kidney injury superimposed on chronic kidney disease Status: Acute (4) Non-ST elevation myocardial infarction (NSTEMI), initial care episode Status: Acute LEANN MOLINA MD Jun 11, 2021 16:08
[2021-06-11 16:24] LABS: CALCIUM 6.7 MG/DL (8.5-10.1); CREATININE SERUM 1.94 MG/DL (0.60-1.30); POTASSIUM 3.4 MMOL/L (3.6-5.0)
[2021-06-11] MEDS ORDERED: ROCURONIUM 10 MG/ML 5 ML SYRINGE IV ONE (16:43)
[2021-06-11] MEDS ORDERED: ETOMIDATE IV SOLN 20 MG/10 ML VIAL IV ONE (16:43)
[2021-06-11 16:55] LABS: FIBRIN DEGRADATION PRODUCTS 8.56 UG/ML (0.00-0.49); INR 1.5 (0.8-1.4); PROTHROMBIN TIME PATIENT 18.8 SEC (12.2-14.7)
[2021-06-11] MEDS ORDERED: DEXTROSE 50% 50 ML (IMS) SYR ONE ×2 (17:34→23:22)
[2021-06-11] MEDS ORDERED: KCL 20 MEQ TAB (K-DUR) PO NR (18:00)
[2021-06-11 18:35] VITALS: BP 118/73
[2021-06-11] MEDS: ROSUVASTATIN 20 MG (CRESTOR) TABLET PO SCH (20:06)
[2021-06-11 22:37] VITALS: BP 113/62
[2021-06-11] MEDS ORDERED: D5 NS 1000 ML IV SOLUTION 1,000 ML IV ONE (22:53)
[2021-06-11] MEDS: D5 NS 1000 ML IV SOLUTION 1,000 ML IV SCH (22:54)
[2021-06-11] MEDS ORDERED: DEXTROSE 50% 50 ML (IMS) SYR IV ONE (23:30)
[2021-06-12] MEDS: PROPOFOL DRIP (ICU) 100 ML IV SCH ×6 (00:26→21:23)
[2021-06-12] MEDS: SODIUM BICARBONATE 8.4% VIAL 100 MEQ in 1/2 NS IV SOLUTION 1,000 ML IV SCH ×2 (00:55→12:38)
[2021-06-12] MEDS: NOREPINEPHRINE 8 MG/250 ML 250 ML IV SCH ×2 (01:59→20:15)
[2021-06-12 02:23] LABS: EOSINOPHILS # (AUTO) 0.1 10^3/uL (0.0-0.3); EOSINOPHILS % (AUTO) 1 % (0-10); NEUTROPHILS # (AUTO) 12.2 10^3/uL (1.8-7.8)
[2021-06-12 02:24] LABS: BASOPHILS # (AUTO) 0.1 10^3/uL (0.0-0.1); BASOPHILS % (AUTO) 1 % (0-10); HEMATOCRIT 32 % (40-54); HEMOGLOBIN 10.8 g/dL (13.3-17.7); LYMPHOCYTES # (AUTO) 1.1 10^3/uL (1.0-4.0); LYMPHOCYTES % (AUTO) 8 % (12-44); MEAN CORPUSCULAR HEMOGLOBIN 32 pg (25-34); MEAN CORPUSCULAR HGB CONC 34 g/dL (32-36); MEAN CORPUSCULAR VOLUME 93 fL (80-99); MONOCYTES # (AUTO) 0.2 10^3/uL (0.0-1.0); MONOCYTES % (AUTO) 2 % (0-12); NEUTROPHILS % (AUTO) 89 % (42-75); PLATELET COUNT 102 10^3/uL (130-400); WHITE BLOOD COUNT 13.8 10^3/uL (4.3-11.0)
[2021-06-12 02:30] LABS: ALBUMIN 2.5 GM/DL (3.2-4.5); POTASSIUM 3.3 MMOL/L (3.6-5.0)
[2021-06-12 02:31] VITALS: BP 119/66
[2021-06-12 02:31] LABS: CALCIUM 6.8 MG/DL (8.5-10.1)
[2021-06-12 02:34] LABS: BILIRUBIN,TOTAL 0.8 MG/DL (0.1-1.0)
[2021-06-12 02:36] LABS: CREATININE SERUM 1.8 MG/DL (0.60-1.30); PHOSPHORUS 1.5 MG/DL (2.3-4.7)
[2021-06-12] MEDS: POTASSIUM CL 10MEQ/50ML IVPB 50 ML IV SCH (02:38)
[2021-06-12] MEDS: MAGNESIUM 1 GM/100 ML IVPB 100 ML IV SCH (02:38)
[2021-06-12 02:39] LABS: MAGNESIUM 2.3 MG/DL (1.6-2.4)
[2021-06-12] MEDS: KCL 20 MEQ TAB (K-DUR) PO SCH (02:39)
[2021-06-12 02:46] LABS: ABG BASE EXCESS 2.8 MMOL/L (-2.5-2.5); ABG OXYGEN SATURATION 97 % (94-100); ABG PCO2 33 MMHG (35-45); ABG PH 7.51 (7.37-7.43); ABG PO2 84 MMHG (79-93)
[2021-06-12 02:47] LABS: ALLENS TEST YES-POS; INSPIRED O2 35%; PATIENT TEMP 36.3; VENTILATOR YES
[2021-06-12] MEDS: fentaNYL INJ 100 MCG/2 ML AMP IVP PRN ×3 (04:08→19:47)
[2021-06-12] MEDS: CEFEPIME 1,000 MG/SWFI 10 ML IV PUSH IV SCH ×6 (05:23→20:47)
[2021-06-12 06:42] VITALS: BP 123/65
[2021-06-12] MEDS: PANTOPRAZOLE 40 MG (PROTONIX) VIAL IV SCH (08:56)
[2021-06-12] MEDS: ASPIRIN 81 MG CHEW (CHILDREN'S ASA) PO SCH (08:56)
[2021-06-12] MEDS: D5 NS 1000 ML IV SOLUTION 1,000 ML IV SCH (08:57)
--- NOTE | 2021-06-12 09:00 | Progress Note - Urology ---
Progress Note-Urology Progress Notes/Assess & Plan Progress/Assessment & Plan UO BETTER. URINE CLEAR. WILL SEE PRN Final Diagnosis UROSEPSIS JESUS SYKES MD Jun 12, 2021 08:59
--- NOTE | 2021-06-12 09:07 | Cardiology Progress Note ---
Progress Note-Cardiology Events since last exam Date Seen by Provider: Jun 12, 2021 Time Seen by Provider: 09:05 Events since last exam We are seeing him due to possible NSTEMI. He remains intubated and sedated. I am not able to obtain any other history from the patient. I did speak to the covering hospitalist at the bedside. Vitals Last set of Vitals Signs Vital Signs 06/12/21 06/12/21 06/12/21 16:00 18:00 18:19 Temp 36.6 Pulse 92 Resp 20 B/P (MAP) 128/67 (87) Pulse Ox 93 O2 Delivery Mechanical Ventilator O2 Flow Rate 35.00 FiO2 35 Labs Labs Laboratory Tests 06/12/21 02:13 Exam Vital Signs Vital Signs Date Time Temp Pulse Resp B/P (MAP) Pulse Ox O2 Delivery O2 Flow Rate FiO2 06/12/21 18:19 92 20 93 35 06/12/21 18:00 128/67 (87) Mechanical Ventilator 35.00 06/12/21 16:00 36.6 Physical Exam General: Intubated and sedated. Well nourished and appears stated age. Eye: Conjunctivae are clear. There are no xanthelasma. HENT: Normocephalic. Atraumatic. Carotid pulsations 2/2 without bruits. Neck: Jugular venous pressure does not appear elevated. No thyromegaly appreciated. Respiratory: Symmetrical expansion bilaterally. Coarse breath sounds to the ventilator. Cardiovascular: Normal rate. Regular rhythm. No murmur. No gallop. Point of maximal impulse is not appear displaced. Good pulses equal in all extremities. 1+ bilateral pretibial edema. Gastrointestinal: Soft. Normal bowel sounds. Skin: Skin turgor is normal. There is no pallor. Musculoskeletal: No obvious deformities. Neurologic: Intubated and sedated. Psychiatric: Not obtainable due to clinical status. Labs Laboratory Tests Test 06/11/21 19:15 06/11/21 20:03 06/11/21 22:47 06/11/21 23:20 Range/Units Glucometer 89 97 65 L 60 *L 70-110 MG/DL Test 06/11/21 23:39 06/12/21 00:28 06/12/21 02:13 06/12/21 02:40 Range/Units Glucometer 107 109 70-110 MG/DL White Blood Count 13.8 H 4.3-11.0 10^3/uL Red Blood Count 3.39 L 4.30-5.52 10^6/uL Hemoglobin 10.8 L 13.3-17.7 g/dL Hematocrit 32 L 40-54 % Mean Corpuscular Volume 93 80-99 fL Mean Corpuscular Hemoglobin 32 25-34 pg Mean Corpuscular Hemoglobin Concent 34 32-36 g/dL Red Cell Distribution Width 13.3 10.0-14.5 % Platelet Count 102 L 130-400 10^3/uL Mean Platelet Volume 12.0 9.0-12.2 fL Immature Granulocyte % (Auto) 0 % Neutrophils (%) (Auto) 89 H 42-75 % Lymphocytes (%) (Auto) 8 L 12-44 % Monocytes (%) (Auto) 2 0-12 % Eosinophils (%) (Auto) 1 0-10 % Basophils (%) (Auto) 1 0-10 % Neutrophils # (Auto) 12.2 H 1.8-7.8 10^3/uL Lymphocytes # (Auto) 1.1 1.0-4.0 10^3/uL Monocytes # (Auto) 0.2 0.0-1.0 10^3/uL Eosinophils # (Auto) 0.1 0.0-0.3 10^3/uL Basophils # (Auto) 0.1 0.0-0.1 10^3/uL Immature Granulocyte # (Auto) 0.1 0.0-0.1 10^3/uL Percent Immature Platelet Fraction 7.9 H 0.0-7.6 % Sodium Level 143 135-145 MMOL/L Potassium Level 3.3 L 3.6-5.0 MMOL/L Chloride Level 108 H 98-107 MMOL/L Carbon Dioxide Level 25 21-32 MMOL/L Anion Gap 10 5-14 MMOL/L Blood Urea Nitrogen 42 H 7-18 MG/DL Creatinine 1.80 H 0.60-1.30 MG/DL Estimat Glomerular Filtration Rate 36 BUN/Creatinine Ratio 23 Glucose Level 136 H 70-105 MG/DL Calcium Level 6.8 L 8.5-10.1 MG/DL Corrected Calcium 8.0 L 8.5-10.1 MG/DL Phosphorus Level 1.5 L 2.3-4.7 MG/DL Magnesium Level 2.3 1.6-2.4 MG/DL Total Bilirubin 0.8 0.1-1.0 MG/DL Aspartate Amino Transf (AST/SGOT) 100 H 5-34 U/L Alanine Aminotransferase (ALT/SGPT) 90 H 0-55 U/L Alkaline Phosphatase 204 H 40-136 U/L Total Protein 5.0 L 6.4-8.2 GM/DL Albumin 2.5 L 3.2-4.5 GM/DL Blood Gas Puncture Site R RAD Blood Gas Patient Temperature 36.3 Arterial Blood pH 7.51 H 7.37-7.43 Arterial Blood Partial Pressure CO2 33 L 35-45 MMHG Arterial Blood Partial Pressure O2 84 79-93 MMHG Arterial Blood HCO3 26 23-27 MMOL/L Arterial Blood Total CO2 27.0 21.0-31.0 MMOL/L Arterial Blood Oxygen Saturation 97 94-100 % Arterial Blood Base Excess 2.8 H -2.5-2.5 MMOL/L Eddi Test YES-POS Blood Gas Ventilator Setting YES Blood Gas Inspired Oxygen 35% Test 06/12/21 03:16 06/12/21 08:15 06/12/21 11:12 06/12/21 15:46 Range/Units Glucometer 95 118 H 117 H 102 70-110 MG/DL Diagnosis/Problems Diagnosis/Problems (1) Non-ST elevation myocardial infarction (NSTEMI), initial care episode Status: Acute Assessment & Plan: He was not reporting any chest discomfort prior to admission. His electrocardiogram looks consistent with an old inferior and anterior infarct but no acute ST changes at rest. Some of the troponin elevation could certainly be related to septic shock on top of chronic kidney disease with acute decompensation. However, I cannot completely exclude a type I or type II non-ST elevation myocardial infarction. I started low strength aspirin and he is getting therapeutic dose of Lovenox for not only the elevated troponin but an elevated D-dimer level. No beta-kushal due to shock requiring norepinephrine. His echocardiogram from 06/10 showed a low normal ejection fraction. Given his septic shock, he is not presently a candidate for early invasive management with a cardiac catheterization. We will follow along with you. His status is critical. Given his severe renal disease, he is not a good candidate for cardiac catheterization. (2) Essential hypertension Assessment & Plan: He had been on hydrochlorothiazide at home but this was reportedly stopped due to worsening renal function. He remains in septic shock. If he recovers from this acute illness and becomes hypertensive, then we may consider starting an alternative antihypertensive agent. (3) Mixed hyperlipidemia Assessment & Plan: In light of the possible NSTEMI, I changed his simvastatin over to intensive dose rosuvastatin. His LDL level is at goal on the labs obtained during this admission. This will need to be followed up after discharge. (4) Septic shock Status: Acute Assessment & Plan: As above, this may be causing some of his metabolic and laboratory derangements. We will proceed as above. Hospitalist and urology are following the patient along with the eICU. (5) Acute kidney injury superimposed on chronic kidney disease Status: Acute Assessment & Plan: Likely related to the sepsis and shock. This may have also caused the BNP, troponin, and D-dimer levels all to become elevated. JOVI ALMAGUER JR, MD Jun 12, 2021 09:06
[2021-06-12 10:04] VITALS: BP 135/73
[2021-06-12] MEDS ORDERED: FUROSEMIDE 40 MG/4 ML INJ (LASIX) IVP NR (10:30)
--- NOTE | 2021-06-12 10:45 | Diagnostic Imaging Report ---
INDICATION: ET tube placement, respiratory failure Frontal chest obtained at 10:30 a.m. and compared with 06/10/2021. Heart is normal in size. Mediastinal silhouette is unremarkable. ET tube is seen with tip overlying mid trachea. NG tube tip overlies mid stomach. Right IJ catheter tip overlies distal SVC. IMPRESSION: No focal infiltrate or pneumothorax or pleural fluid. Stable life support lines. Dictated by: Dictated on workstation # [id number]
[2021-06-12] MEDS: ENOXAPARIN 80 MG/0.8 ML (LOVENOX) SYR SC SCH ×2 (11:09→20:48)
--- NOTE | 2021-06-12 11:18 | Tele-ICU Progress Note ---
Subjective Date Seen by a Provider: Jun 12, 2021 Time Seen by a Provider: 11:17 Sepsis Event Evaluation Height, Weight, BMI Height: 5'9.00" Weight: 182lbs. oz. 82.373183gy; 27.81 BMI Method: Focused Exam Lactate Level 06/10/21 09:00: Lactic Acid Level 3.55*H 06/10/21 11:03: Lactic Acid Level 3.45*H 06/11/21 09:15: Lactic Acid Level 2.36*H Exam Exam Patient acknowledged, consented, and participated in this virtual visit which was conducted using real time audio/video Vital Signs Date Time Temp Pulse Resp B/P (MAP) Pulse Ox O2 Delivery O2 Flow Rate FiO2 06/12/21 11:00 79 15 119/62 (81) 94 Mechanical Ventilator 35.00 06/12/21 10:04 87 19 95 35 06/12/21 10:00 86 18 135/73 (93) 94 Mechanical Ventilator 35.00 06/12/21 09:00 82 16 144/74 (97) 96 Mechanical Ventilator 35.00 06/12/21 08:00 79 15 128/69 (88) 95 Mechanical Ventilator 35.00 06/12/21 08:00 Mechanical Ventilator 35 06/12/21 07:43 36.4 06/12/21 07:00 75 15 124/67 (86) 96 Mechanical Ventilator 35.00 06/12/21 06:50 80 06/12/21 06:42 78 15 96 35 06/12/21 06:00 80 15 116/68 (84) 94 Mechanical Ventilator 35.00 06/12/21 05:00 83 16 128/62 (84) 94 Mechanical Ventilator 35.00 06/12/21 04:10 123/57 06/12/21 04:00 86 18 123/57 (79) 95 Mechanical Ventilator 35.00 06/12/21 03:50 134/71 06/12/21 03:04 Mechanical Ventilator 35 06/12/21 03:00 73 15 125/66 (85) 95 Mechanical Ventilator 35.00 06/12/21 02:46 36.3 06/12/21 02:31 75 15 93 35 06/12/21 02:00 75 15 122/65 (84) 94 Mechanical Ventilator 35.00 06/12/21 01:00 82 15 118/63 (81) 93 Mechanical Ventilator 35.00 06/12/21 01:00 82 06/12/21 00:26 112/60 06/12/21 00:00 80 18 122/61 (81) 94 Mechanical Ventilator 35.00 06/11/21 23:02 Mechanical Ventilator 35 06/11/21 23:00 78 19 117/65 (82) 95 Mechanical Ventilator 35.00 06/11/21 22:46 36.4 06/11/21 22:37 73 20 93 35 06/11/21 22:00 73 18 109/60 (76) 96 Mechanical Ventilator 35.00 06/11/21 21:00 73 20 119/82 (94) 95 Mechanical Ventilator 35.00 06/11/21 20:36 Mechanical Ventilator 35 06/11/21 20:33 128/73 06/11/21 20:13 36.2 06/11/21 20:00 68 16 111/75 (87) 95 Mechanical Ventilator 35.00 06/11/21 19:47 35.8 06/11/21 19:00 70 15 99/60 (73) 94 Mechanical Ventilator 35.00 06/11/21 19:00 Mechanical Ventilator 35.00 06/11/21 19:00 70 06/11/21 18:35 71 16 93 35 06/11/21 18:00 71 20 124/70 (88) 93 Mechanical Ventilator 35.00 06/11/21 17:00 71 11 100/53 (69) 93 Mechanical Ventilator 35.00 06/11/21 16:00 76 16 113/59 (77) 94 Mechanical Ventilator 35.00 06/11/21 16:00 Mechanical Ventilator 35 06/11/21 16:00 36.4 06/11/21 16:00 124/87 06/11/21 15:00 73 19 132/72 (92) 95 Mechanical Ventilator 35.00 06/11/21 14:39 75 21 95 35 06/11/21 14:01 70 19 121/75 (90) 97 35.00 06/11/21 13:03 36.3 06/11/21 13:00 62 06/11/21 12:00 Mechanical Ventilator 35 I & O 06/12/21 07:00 Intake Total 720 ml Output Total 1010 ml Balance -290 ml Height & Weight Height: 5'9.00" Weight: 182lbs. oz. 82.346863un; 27.81 BMI Method: General Appearance: No Apparent Distress, WD/WN HEENT: PERRL/EOMI, Moist Mucous Membranes Neck: Full Range of Motion, Supple Respiratory: Normal Breath Sounds, No Respiratory Distress, Other (Intubated and mechanically ventilated) Cardiovascular: Regular Rate, Rhythm, No Edema, No Murmur Capillary Refill: Less Than 3 Seconds Gastrointestinal: non tender, soft, no organomegaly, other (urostomy) Extremity: Normal Inspection, No Pedal Edema Neurologic/Psychiatric: Other (Sedated) Skin: Normal Color, Warm/Dry Results Lab Laboratory Tests 06/10/21 21:35 06/11/21 04:50 06/11/21 15:54 06/12/21 02:13 Assessment/Plan Assessment/Plan (Tele-ICU Physician , Progress Note ) Available chart/ vitals / labs / Images reviewed Video assessment done using teleICU camera, rest of exam as per RN discussed with RN Events overnight : Afebrile hemodynamically stable, no pressors, I/O = pos 1700 Drips: off levo , bicarb 100 mE @100, d5ns 100 VENT SETTINGS. 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 bacteremia- klebsiella - on abx - repeat blood cx 06/12 Elev trop / NSTEMI --ECHO 01/11/2021 - EF 50% grd I dst dsfn, No pulm HTN Elevated D dimer > 20 - NEED TO BE EVALUATED - improving - sepsis related ? - Lovenox 80q12 - as per PCP Elev transaminases - stable MACKENZIE ? CKD - improving with agressive hydration -no hydro on Ct 06/09 - decrease fluid - leave on 50 cc of bicarb and start diuresis gently - follow Cr carefully Met acidosis - improving on bicarb , anticipate to stop by tomorrow Developing effusion on LEFT on cxr 06/10 - cxr pending subacute to chronic diverticulitis by CT 06/09 history of CA of the prostate ->a robotic-assisted laparoscopic prostatectomy h/o cancer bladder and underwent a radical cystectomy with ileal loop diversion, Lines : R IJ (Central Line Necessity Reviewed) Stanton: - urostomy OG: + Nutrition: TF Analgesia: ns Anxiety/ delirium na VTE Prophylaxis: lovenox 80 q 12 Stress Ulcer Prophylaxis: Glycemic Control: A total of 35 minutes of critical care time was devoted to this patient today, required to treat and/or prevent further deterioration of critical care condition ( as above ) . GORAN GATES MD Jun 12, 2021 11:18
--- NOTE | 2021-06-12 14:24 | Progress Note - Hospitalist ---
Subjective HPI/CC On Admission Date Seen by Provider: Jun 12, 2021 Time Seen by Provider: 08:45 Pt is an 80yoCM witha PMH of prostate and bladder cancer, HTN, HLD, and dementia who presented to the ER due to weakness and altered mental status. He is unable to provide me any history. He has two daughters at the bedside who relay all history except for what is obtained from the chart. He is normally ambulatory and lives in an independent living ([facility] in [place]) who has not felt well for the past couple of days and was worse yesterday. Daughter reports that he would not get out of bed so they recommended that their mom call the facilitys' nurse. When the nurse arrived they called EMS. He was found to be in septic shock from a UTI and admitted to the ICU. Overnight he has continued to worsen and was quite agitated requiring precedex. He then became hypotensive and required central line placement for pressors. Subjective/Events-last exam He remains intubated and sedated. Focused Exam Lactate Level 06/10/21 09:00: Lactic Acid Level 3.55*H 06/10/21 11:03: Lactic Acid Level 3.45*H 06/11/21 09:15: Lactic Acid Level 2.36*H Objective Exam Vital Signs Vital Signs Date Time Temp Pulse Resp B/P (MAP) Pulse Ox O2 Delivery O2 Flow Rate FiO2 06/12/21 13:00 78 12 125/69 (87) 96 Mechanical Ventilator 35.00 06/12/21 12:18 35 06/12/21 11:55 36.6 Capillary Refill : Less Than 3 Seconds General Appearance: No Apparent Distress, Other (Intubated and sedated) Respiratory: Lungs Clear, Normal Breath Sounds, No Respiratory Distress Cardiovascular: Regular Rate, Rhythm, No Edema, No Murmur Gastrointestinal: Normal Bowel Sounds, Soft Extremity: Normal Inspection, No Pedal Edema Neurologic/Psychiatric: Other (Sedated) Skin: Normal Color, Warm/Dry Results/Procedures Lab Laboratory Tests 06/11/21 15:54 06/12/21 02:13 Patient resulted labs reviewed. Imaging: Reviewed Imaging Report Assessment/Plan Assessment and Plan Assess & Plan/Chief Complaint Septic shock Polymicrobial UTI Klebsiella pneumoniae bacteremia MACKENZIE on CKD NSTEMI, likely type II Thrombocytopenia Elevated LFTs Continue Cefepime Wean pressors as able Continue fluids Troponin elevated, stable Likely type II AR from shock Cardiology consulted, appreciate recs HTN Hold home meds due to hypotension DVT ppx: Lovenox Lactic acidosis, resolved Critical Care Critically Ill Patient Diagnosis/Problems Diagnosis/Problems (1) Septic shock Status: Acute (2) Urinary tract infection Status: Acute Qualifiers: Urinary tract infection type: site unspecified Hematuria presence: without hematuria Qualified Codes: N39.0 - Urinary tract infection, site not specified (3) Acute kidney injury superimposed on chronic kidney disease Status: Acute (4) Non-ST elevation myocardial infarction (NSTEMI), initial care episode Status: Acute (5) Bacteremia due to Klebsiella pneumoniae Status: Acute LEANN MOLINA MD Jun 12, 2021 14:24
[2021-06-12 14:26] VITALS: BP 138/79
[2021-06-12 18:19] VITALS: BP 122/75
[2021-06-12] MEDS: ROSUVASTATIN 20 MG (CRESTOR) TABLET PO SCH (19:31)
[2021-06-12] MEDS ORDERED: DexMEDEtomidine 250 ML DRIP 250 ML IV ONE (20:20)
[2021-06-12] MEDS: DexMEDEtomidine 250 ML DRIP 250 ML IV SCH (20:50)
[2021-06-12 22:37] VITALS: BP 105/58
[2021-06-13] MEDS: fentaNYL INJ 100 MCG/2 ML AMP IVP PRN (00:57)
[2021-06-13] MEDS: PROPOFOL DRIP (ICU) 100 ML IV SCH ×4 (01:50→19:51)
[2021-06-13 01:57] LABS: ABG BASE EXCESS 5.7 MMOL/L (-2.5-2.5); ABG OXYGEN SATURATION 96 % (94-100); ABG PCO2 37 MMHG (35-45); ABG PH 7.51 (7.37-7.43); ABG PO2 78 MMHG (79-93); ABG TCO2 30.2 MMOL/L (21.0-31.0)
[2021-06-13 01:58] LABS: ALLENS TEST YES-POS; INSPIRED O2 60%; PATIENT TEMP 36.7; VENTILATOR YES
[2021-06-13 02:19] LABS: BASOPHILS # (AUTO) 0.1 10^3/uL (0.0-0.1); BASOPHILS % (AUTO) 1 % (0-10); EOSINOPHILS # (AUTO) 0.2 10^3/uL (0.0-0.3); EOSINOPHILS % (AUTO) 2 % (0-10); HEMATOCRIT 34 % (40-54); HEMOGLOBIN 11.3 g/dL (13.3-17.7); LYMPHOCYTES # (AUTO) 1.1 10^3/uL (1.0-4.0); LYMPHOCYTES % (AUTO) 12 % (12-44); MEAN CORPUSCULAR HEMOGLOBIN 32 pg (25-34); MEAN CORPUSCULAR HGB CONC 34 g/dL (32-36); MEAN CORPUSCULAR VOLUME 94 fL (80-99); MEAN PLATELET VOLUME 11.6 fL (9.0-12.2); MONOCYTES # (AUTO) 0.3 10^3/uL (0.0-1.0); MONOCYTES % (AUTO) 4 % (0-12); NEUTROPHILS # (AUTO) 6.9 10^3/uL (1.8-7.8); NEUTROPHILS % (AUTO) 79 % (42-75); PLATELET COUNT 103 10^3/uL (130-400); WHITE BLOOD COUNT 8.7 10^3/uL (4.3-11.0)
[2021-06-13 02:24] LABS: ALBUMIN 2.5 GM/DL (3.2-4.5); POTASSIUM 3.2 MMOL/L (3.6-5.0)
[2021-06-13 02:26] LABS: CALCIUM 7.2 MG/DL (8.5-10.1)
[2021-06-13 02:27] LABS: TOTAL PROTEIN 5.1 GM/DL (6.4-8.2)
[2021-06-13 02:28] LABS: BILIRUBIN,TOTAL 1.1 MG/DL (0.1-1.0)
[2021-06-13 02:30] LABS: CREATININE SERUM 1.77 MG/DL (0.60-1.30); PHOSPHORUS 1.9 MG/DL (2.3-4.7)
[2021-06-13 02:33] LABS: MAGNESIUM 2.1 MG/DL (1.6-2.4)
[2021-06-13] MEDS: POTASSIUM CL 10MEQ/50ML IVPB 50 ML IV SCH ×4 (02:34→12:33)
[2021-06-13] MEDS: MAGNESIUM 1 GM/100 ML IVPB 100 ML IV SCH (02:35)
[2021-06-13] MEDS: KCL 20 MEQ TAB (K-DUR) PO SCH (02:35)
[2021-06-13 02:38] VITALS: BP 58/58
[2021-06-13] MEDS: CEFEPIME 1,000 MG/SWFI 10 ML IV PUSH IV SCH ×2 (05:12)
[2021-06-13 06:45] VITALS: BP 109/66
--- NOTE | 2021-06-13 08:07 | Tele-ICU Progress Note ---
Subjective Date Seen by a Provider: Jun 13, 2021 Time Seen by a Provider: 11:18 Subjective/Events-last exam 80 yo M admitted 06/09 for sepsis, AMS, intubated on 06/10, current vent settings AC 15 Vt 480 FiO2 50% PEEP 5 CXR from yesterday, ET ok, mild elevation of diaphragms, blunting of left CP angle Grew Klebsiella from BX peripheral, On IV Cefepime On Precedexl Propofol- will check TG's Getting phos and potassium replacement full code physcial per RN Sepsis Event Evaluation Height, Weight, BMI Height: 5'9.00" Weight: 182lbs. oz. 82.054825jt; 27.81 BMI Method: Focused Exam Lactate Level 06/10/21 09:00: Lactic Acid Level 3.55*H 06/10/21 11:03: Lactic Acid Level 3.45*H 06/11/21 09:15: Lactic Acid Level 2.36*H Exam Exam Patient acknowledged, consented, and participated in this virtual visit which was conducted using real time audio/video Vital Signs Date Time Temp Pulse Resp B/P (MAP) Pulse Ox O2 Delivery O2 Flow Rate FiO2 06/13/21 07:30 36.6 06/13/21 06:45 80 18 92 50 06/13/21 06:00 79 25 117/72 (87) 94 Mechanical Ventilator 60.00 06/13/21 05:50 108/70 06/13/21 05:00 82 26 93/56 (68) 93 Mechanical Ventilator 60.00 06/13/21 04:50 80 26 94 Mechanical Ventilator 60.00 06/13/21 04:00 81 25 98/55 (69) 93 Mechanical Ventilator 50.00 06/13/21 03:05 91 Mechanical Ventilator 50 06/13/21 03:00 84 27 103/58 (73) 93 Mechanical Ventilator 50.00 06/13/21 02:41 Mechanical Ventilator 50.00 06/13/21 02:38 83 21 98 60 06/13/21 02:00 87 23 105/58 (74) 91 Mechanical Ventilator 60.00 06/13/21 01:54 36.7 06/13/21 01:50 114/74 06/13/21 01:00 89 06/13/21 01:00 89 16 121/66 (84) 95 Mechanical Ventilator 60.00 06/13/21 00:49 Mechanical Ventilator 60.00 06/13/21 00:00 87 16 101/60 (74) 92 Mechanical Ventilator 55.00 06/12/21 23:37 36.4 06/12/21 23:30 91 Mechanical Ventilator 55 06/12/21 23:00 89 17 116/63 (80) 92 Mechanical Ventilator 55.00 06/12/21 22:58 89 18 90 Mechanical Ventilator 55.00 06/12/21 22:37 82 15 92 45 06/12/21 22:00 94 15 105/61 (76) 92 Mechanical Ventilator 45.00 06/12/21 21:23 117/58 06/12/21 21:00 102 21 137/67 (90) 91 Mechanical Ventilator 45.00 06/12/21 20:50 101 06/12/21 20:47 Mechanical Ventilator 45.00 06/12/21 20:00 104 23 146/79 (101) 92 Mechanical Ventilator 35.00 06/12/21 19:23 91 Mechanical Ventilator 35 06/12/21 19:18 36.2 Mechanical Ventilator 35.00 06/12/21 19:00 95 06/12/21 19:00 95 23 129/69 (89) 93 Mechanical Ventilator 35.00 06/12/21 18:19 92 20 93 35 06/12/21 18:00 96 15 128/67 (87) 93 Mechanical Ventilator 35.00 06/12/21 17:24 85 122/80 06/12/21 17:00 85 25 122/80 (94) 92 Mechanical Ventilator 35.00 06/12/21 16:00 Mechanical Ventilator 35 06/12/21 16:00 74 16 117/62 (80) 91 Mechanical Ventilator 35.00 06/12/21 16:00 36.6 06/12/21 15:00 81 18 119/70 (86) 92 Mechanical Ventilator 35.00 06/12/21 14:26 80 18 94 50 06/12/21 14:00 79 15 123/72 (89) 83 Mechanical Ventilator 35.00 06/12/21 13:00 78 12 125/69 (87) 96 Mechanical Ventilator 35.00 06/12/21 12:42 77 06/12/21 12:39 75 130/68 06/12/21 12:38 75 130/68 06/12/21 12:18 Mechanical Ventilator 35 06/12/21 12:00 75 14 130/68 (88) 95 Mechanical Ventilator 35.00 06/12/21 11:55 36.6 06/12/21 11:00 79 15 119/62 (81) 94 Mechanical Ventilator 35.00 06/12/21 10:04 87 19 95 35 06/12/21 10:00 86 18 135/73 (93) 94 Mechanical Ventilator 35.00 06/12/21 09:00 82 16 144/74 (97) 96 Mechanical Ventilator 35.00 I & O 06/13/21 07:00 Intake Total 1305 ml Output Total 3850 ml Balance -2545 ml Height & Weight Height: 5'9.00" Weight: 182lbs. oz. 82.704686hf; 27.81 BMI Method: General Appearance: No Apparent Distress, Other (Intubated and sedated, ) HEENT: PERRL/EOMI, Moist Mucous Membranes Neck: Full Range of Motion, Supple Respiratory: Lungs Clear, Normal Breath Sounds, No Respiratory Distress, Decreased Breath Sounds, Rhonci Cardiovascular: Regular Rate, Rhythm, No Edema, No Murmur Capillary Refill: Less Than 3 Seconds Gastrointestinal: normal bowel sounds, non tender, soft, no organomegaly, other (urostomy, scrotal edema) Extremity: Normal Inspection, No Pedal Edema, Pedal Edema Neurologic/Psychiatric: Other (Sedated) Skin: Normal Color, Warm/Dry Results Lab Laboratory Tests 06/11/21 15:54 06/12/21 02:13 06/13/21 02:09 Assessment/Plan Assessment/Plan Sepsis probably from urine will continue on IV cefepime try to lower pressors continue on vent, will keep on vent and not do SBT due to increased oxygen needs Will get CXR Off pressors for 24 hours Tubes OG will keep urostomy has right IJ place on 06/10, site looks ok, might be able to remove in am Physical findings as per non destructive testing inspector: Critically Ill Patient Time spent with patient (mins): 20 EDILIA YUNG MD Jun 13, 2021 08:07
[2021-06-13] MEDS: ASPIRIN 81 MG CHEW (CHILDREN'S ASA) PO SCH (08:08)
[2021-06-13] MEDS: PANTOPRAZOLE 40 MG (PROTONIX) VIAL IV SCH (08:08)
[2021-06-13] MEDS: ENOXAPARIN 80 MG/0.8 ML (LOVENOX) SYR SC SCH ×2 (08:09→23:07)
--- NOTE | 2021-06-13 08:38 | Cardiology Progress Note ---
Progress Note-Cardiology Events since last exam Date Seen by Provider: Jun 13, 2021 Time Seen by Provider: 08:35 Events since last exam We are seeing him due to possible NSTEMI. He remains intubated and sedated in the ICU. I spoke to the nurse at the bedside. He is now off norepinephrine. Vitals Last set of Vitals Signs Vital Signs 06/13/21 06/13/21 06/13/21 17:58 18:00 18:42 Temp 36.4 Pulse 71 Resp 14 B/P (MAP) 121/75 (90) Pulse Ox 98 O2 Delivery Mechanical Ventilator O2 Flow Rate 40.00 FiO2 50 Labs Labs Laboratory Tests 06/13/21 02:09 Exam Vital Signs Vital Signs Date Time Temp Pulse Resp B/P (MAP) Pulse Ox O2 Delivery O2 Flow Rate FiO2 06/13/21 18:42 36.4 06/13/21 18:00 71 14 121/75 (90) 98 Mechanical Ventilator 40.00 06/13/21 17:58 50 Physical Exam General: Intubated and sedated. Well nourished and appears stated age. Eye: Conjunctivae are clear. There are no xanthelasma. HENT: Normocephalic. Atraumatic. Carotid pulsations 2/2 without bruits. Neck: Jugular venous pressure does not appear elevated. No thyromegaly appreciated. Respiratory: Symmetrical expansion bilaterally. Coarse breath sounds to the ventilator. Cardiovascular: Normal rate. Regular rhythm. No murmur. No gallop. Point of maximal impulse is not appear displaced. Good pulses equal in all extremities. No edema. Gastrointestinal: Soft. Normal bowel sounds. Skin: Skin turgor is normal. There is no pallor. Musculoskeletal: No obvious deformities. Neurologic: Intubated and sedated. Psychiatric: Not obtainable due to clinical status. Labs Laboratory Tests Test 06/12/21 19:20 06/12/21 22:40 06/13/21 01:48 06/13/21 02:09 Range/Units Glucometer 113 H 120 H 70-110 MG/DL Blood Gas Puncture Site R RAD Blood Gas Patient Temperature 36.7 Arterial Blood pH 7.51 H 7.37-7.43 Arterial Blood Partial Pressure CO2 37 35-45 MMHG Arterial Blood Partial Pressure O2 78 L 79-93 MMHG Arterial Blood HCO3 29 H 23-27 MMOL/L Arterial Blood Total CO2 30.2 21.0-31.0 MMOL/L Arterial Blood Oxygen Saturation 96 94-100 % Arterial Blood Base Excess 5.7 H -2.5-2.5 MMOL/L Eddi Test YES-POS Blood Gas Ventilator Setting YES Blood Gas Inspired Oxygen 60% White Blood Count 8.7 4.3-11.0 10^3/uL Red Blood Count 3.58 L 4.30-5.52 10^6/uL Hemoglobin 11.3 L 13.3-17.7 g/dL Hematocrit 34 L 40-54 % Mean Corpuscular Volume 94 80-99 fL Mean Corpuscular Hemoglobin 32 25-34 pg Mean Corpuscular Hemoglobin Concent 34 32-36 g/dL Red Cell Distribution Width 13.2 10.0-14.5 % Platelet Count 103 L 130-400 10^3/uL Mean Platelet Volume 11.6 9.0-12.2 fL Immature Granulocyte % (Auto) 2 % Neutrophils (%) (Auto) 79 H 42-75 % Lymphocytes (%) (Auto) 12 12-44 % Monocytes (%) (Auto) 4 0-12 % Eosinophils (%) (Auto) 2 0-10 % Basophils (%) (Auto) 1 0-10 % Neutrophils # (Auto) 6.9 1.8-7.8 10^3/uL Lymphocytes # (Auto) 1.1 1.0-4.0 10^3/uL Monocytes # (Auto) 0.3 0.0-1.0 10^3/uL Eosinophils # (Auto) 0.2 0.0-0.3 10^3/uL Basophils # (Auto) 0.1 0.0-0.1 10^3/uL Immature Granulocyte # (Auto) 0.2 H 0.0-0.1 10^3/uL Percent Immature Platelet Fraction 7.6 0.0-7.6 % Sodium Level 145 135-145 MMOL/L Potassium Level 3.2 L 3.6-5.0 MMOL/L Chloride Level 107 98-107 MMOL/L Carbon Dioxide Level 28 21-32 MMOL/L Anion Gap 10 5-14 MMOL/L Blood Urea Nitrogen 40 H 7-18 MG/DL Creatinine 1.77 H 0.60-1.30 MG/DL Estimat Glomerular Filtration Rate 37 BUN/Creatinine Ratio 23 Glucose Level 130 H 70-105 MG/DL Calcium Level 7.2 L 8.5-10.1 MG/DL Corrected Calcium 8.4 L 8.5-10.1 MG/DL Phosphorus Level 1.9 L 2.3-4.7 MG/DL Magnesium Level 2.1 1.6-2.4 MG/DL Total Bilirubin 1.1 H 0.1-1.0 MG/DL Aspartate Amino Transf (AST/SGOT) 186 H 5-34 U/L Alanine Aminotransferase (ALT/SGPT) 144 H 0-55 U/L Alkaline Phosphatase 325 H 40-136 U/L Total Protein 5.1 L 6.4-8.2 GM/DL Albumin 2.5 L 3.2-4.5 GM/DL Triglycerides Level 360 H <150 MG/DL Test 06/13/21 02:30 06/13/21 08:24 06/13/21 11:54 06/13/21 15:39 Range/Units Procalcitonin 95.60 H <0.10 NG/ML Glucometer 111 H 140 H 133 H 70-110 MG/DL Diagnosis/Problems Diagnosis/Problems (1) Non-ST elevation myocardial infarction (NSTEMI), initial care episode Status: Acute Assessment & Plan: He was not reporting any chest discomfort prior to admission. His electrocardiogram looks consistent with an old inferior and anterior infarct but no acute ST changes at rest. Some of the troponin elevation could certainly be related to septic shock on top of chronic kidney disease with acute decompensation. However, I cannot completely exclude a type I or type II non-ST elevation myocardial infarction. I started low strength aspirin. He is currently on therapeutic dose Lovenox for not only the elevated troponin level but an elevated D-dimer. If his blood pressures improve, we can consider starting low-dose beta-kushal. His echocardiogram from 06/10 showed a low normal ejection fraction. Given his septic shock and moderate to severe chronic kidney disease, he is not presently a candidate for early invasive management with a cardiac catheterization. His status remains critical. (2) Essential hypertension Assessment & Plan: He had been on hydrochlorothiazide at home but this was reportedly stopped due to worsening renal function. He is now off vasopressors. We will monitor his blood pressure closely. If his blood pressures become elevated, we can consider resuming some of his antihypertensive medication. (3) Mixed hyperlipidemia Assessment & Plan: Continue rosuvastatin at intensive dose. He was on simvastatin at home. I recommend he be discharged on rosuvastatin. (4) Acute kidney injury superimposed on chronic kidney disease Status: Acute Assessment & Plan: Likely related to the sepsis and shock. This may have also caused the BNP, troponin, and D-dimer levels all to become elevated. His baseline renal function is also poor which increases the risk of developing end- stage renal disease if he has any intravenous or intra-arterial contrast. (5) Septic shock Status: Acute Assessment & Plan: This may have caused some of his metabolic and laboratory derangements. He is now off vasopressors. JOVI ALMAGUER JR, MD Jun 13, 2021 08:37
[2021-06-13] MEDS ORDERED: SODIUM PHOSPHATE INJ 15 MM in D5W 100 ML IVPB 100 ML IV NR (09:12)
[2021-06-13] MEDS ORDERED: FUROSEMIDE 40 MG/4 ML INJ (LASIX) IVP NR (09:12)
--- NOTE | 2021-06-13 09:34 | Diagnostic Imaging Report ---
Indication: Respiratory failure. Compared: 06/12/2021 Findings: ET tube lower thoracic trachea, OG catheter in the stomach, right IJ at the cavoatrial junction, all stable. Blunting of the angles likely small pleural effusions appears less conspicuous and likely decreased. The lungs themselves showed no focal consolidation. Impression: Likely decreased small pleural effusions, stable support apparatus, no pneumothorax, no adverse change. Dictated by: Dictated on workstation # [id number]
--- NOTE | 2021-06-13 10:20 | Progress Note - Hospitalist ---
Subjective HPI/CC On Admission Date Seen by Provider: Jun 13, 2021 Time Seen by Provider: 08:05 Pt is an 80yoCM witha PMH of prostate and bladder cancer, HTN, HLD, and dementia who presented to the ER due to weakness and altered mental status. He is unable to provide me any history. He has two daughters at the bedside who relay all history except for what is obtained from the chart. He is normally ambulatory and lives in an independent living ([facility] in [place]) who has not felt well for the past couple of days and was worse yesterday. Daughter reports that he would not get out of bed so they recommended that their mom call the facilitys' nurse. When the nurse arrived they called EMS. He was found to be in septic shock from a UTI and admitted to the ICU. Overnight he has continued to worsen and was quite agitated requiring precedex. He then became hypotensive and required central line placement for pressors. Subjective/Events-last exam He remains intubated and sedated. Focused Exam Lactate Level 06/10/21 11:03: Lactic Acid Level 3.45*H 06/11/21 09:15: Lactic Acid Level 2.36*H Objective Exam Vital Signs Vital Signs Date Time Temp Pulse Resp B/P (MAP) Pulse Ox O2 Delivery O2 Flow Rate FiO2 06/13/21 09:00 85 22 115/71 (86) 96 Mechanical Ventilator 50.00 06/13/21 08:00 50 06/13/21 07:30 36.6 Capillary Refill : Less Than 3 Seconds General Appearance: No Apparent Distress, Chronically ill, Other (Intubated and sedated) Respiratory: Lungs Clear, Normal Breath Sounds, No Respiratory Distress Cardiovascular: Regular Rate, Rhythm, No Murmur Gastrointestinal: Normal Bowel Sounds, Soft, Other (Urostomy in place) Extremity: Normal Inspection, Pedal Edema Neurologic/Psychiatric: Other (Sedated) Skin: Normal Color, Warm/Dry Results/Procedures Lab Laboratory Tests 06/13/21 02:09 Patient resulted labs reviewed. Imaging: Reviewed Imaging Films, Reviewed Imaging Report Assessment/Plan Assessment and Plan Assess & Plan/Chief Complaint Septic shock Polymicrobial UTI Klebsiella pneumoniae bacteremia MACKENZIE on CKD NSTEMI, likely type II Thrombocytopenia Elevated LFTs Stop Cefepime Begin Unasyn Off pressors Stop fluids Begin Lasix TeleICU consulted, appreciate assistance Cardiology consulted, appreciate assistance HTN Hold home meds due to hypotension Obesity Clinically significant, no acute management needs DVT ppx: Lovenox Lactic acidosis, resolved Critical Care Critically Ill Patient Diagnosis/Problems Diagnosis/Problems (1) Septic shock Status: Acute (2) Urinary tract infection Status: Acute Qualifiers: Urinary tract infection type: site unspecified Hematuria presence: without hematuria Qualified Codes: N39.0 - Urinary tract infection, site not specified (3) Acute kidney injury superimposed on chronic kidney disease Status: Acute (4) Non-ST elevation myocardial infarction (NSTEMI), initial care episode Status: Acute (5) Bacteremia due to Klebsiella pneumoniae Status: Acute LEANN MOLINA MD Jun 13, 2021 10:20
[2021-06-13] MEDS ORDERED: cefTRIAXone 2,000 MG in WATER (STERILE) FOR INJECTION 20 ML IV SCH (10:30)
[2021-06-13] MEDS: SODIUM BICARBONATE 8.4% VIAL 100 MEQ in 1/2 NS IV SOLUTION 1,000 ML IV SCH ×2 (10:44→14:28)
[2021-06-13 10:48] VITALS: BP 110/64
[2021-06-13] MEDS: AMPICILLIN/SULBACTAM INJECTION 1.5 GM in NS (IVPB) 100 ML IV SCH ×3 (12:33→23:07)
[2021-06-13 14:03] VITALS: BP 99/52
[2021-06-13] MEDS: NOREPINEPHRINE 8 MG/250 ML 250 ML IV SCH (14:27)
[2021-06-13 17:58] VITALS: BP 112/69
[2021-06-13] MEDS: ROSUVASTATIN 20 MG (CRESTOR) TABLET PO SCH (19:51)
[2021-06-13 23:02] VITALS: BP 112/69
[2021-06-14] VITALS (7 sets, daily range): BP systolic 106–146; BP diastolic 56–86
[2021-06-14] MEDS: PROPOFOL DRIP (ICU) 100 ML IV SCH (02:52)
[2021-06-14 03:51] LABS: BASOPHILS # (AUTO) 0.1 10^3/uL (0.0-0.1); BASOPHILS % (AUTO) 1 % (0-10); EOSINOPHILS # (AUTO) 0.4 10^3/uL (0.0-0.3); EOSINOPHILS % (AUTO) 5 % (0-10); HEMATOCRIT 32 % (40-54); HEMOGLOBIN 10.6 g/dL (13.3-17.7); LYMPHOCYTES # (AUTO) 1.2 10^3/uL (1.0-4.0); LYMPHOCYTES % (AUTO) 13 % (12-44); MEAN CORPUSCULAR HEMOGLOBIN 31 pg (25-34); MEAN CORPUSCULAR HGB CONC 33 g/dL (32-36); MEAN CORPUSCULAR VOLUME 95 fL (80-99); MONOCYTES # (AUTO) 0.7 10^3/uL (0.0-1.0); MONOCYTES % (AUTO) 7 % (0-12); NEUTROPHILS # (AUTO) 6.6 10^3/uL (1.8-7.8); NEUTROPHILS % (AUTO) 70 % (42-75); PLATELET COUNT 106 10^3/uL (130-400); WHITE BLOOD COUNT 9.3 10^3/uL (4.3-11.0)
[2021-06-14 04:01] LABS: ALBUMIN 2.4 GM/DL (3.2-4.5); POTASSIUM 3.4 MMOL/L (3.6-5.0)
[2021-06-14 04:03] LABS: CALCIUM 7.2 MG/DL (8.5-10.1)
[2021-06-14 04:04] LABS: TOTAL PROTEIN 5.3 GM/DL (6.4-8.2)
[2021-06-14 04:05] LABS: ABG BASE EXCESS 5.2 MMOL/L (-2.5-2.5); ABG OXYGEN SATURATION 99 % (94-100); ABG PCO2 37 MMHG (35-45); ABG PO2 111 MMHG (79-93); ALLENS TEST YES-POS; PATIENT TEMP 36.6; VENTILATOR YES
[2021-06-14 04:07] LABS: PHOSPHORUS 3.3 MG/DL (2.3-4.7)
[2021-06-14 04:08] LABS: CREATININE SERUM 2.08 MG/DL (0.60-1.30)
[2021-06-14 04:10] LABS: MAGNESIUM 2.2 MG/DL (1.6-2.4)
[2021-06-14] MEDS: NOREPINEPHRINE 8 MG/250 ML 250 ML IV SCH ×2 (04:30→21:38)
[2021-06-14] MEDS: POTASSIUM CL 10MEQ/50ML IVPB 50 ML IV SCH ×3 (04:30→05:26)
[2021-06-14] MEDS: KCL 20 MEQ TAB (K-DUR) PO SCH (04:30)
[2021-06-14] MEDS: MAGNESIUM 1 GM/100 ML IVPB 100 ML IV SCH (04:30)
[2021-06-14] MEDS: AMPICILLIN/SULBACTAM INJECTION 1.5 GM in NS (IVPB) 100 ML IV SCH ×4 (04:34→21:38)
--- NOTE | 2021-06-14 08:54 | Progress Note - Cardiology ---
Cardiology SOAP Progress Note Subjective: Intubated and sedated Objective: I&O/Vital Signs 06/14/21 06/14/21 06/14/21 06/14/21 01:00 01:00 02:00 02:52 Pulse 66 69 68 66 Resp 15 19 B/P (MAP) 109/57 (74) 121/70 (87) 112/69 Pulse Ox 94 93 O2 Delivery Mechanical Ventilator Mechanical Ventilator O2 Flow Rate 45.00 45.00 06/14/21 06/14/21 06/14/21 06/14/21 03:00 03:04 03:38 04:00 Temp 36.6 Pulse 63 86 75 Resp 10 15 21 B/P (MAP) 113/82 (92) 106/82 (90) Pulse Ox 94 94 93 O2 Delivery Mechanical Ventilator Mechanical Ventilator O2 Flow Rate 45.00 45.00 FiO2 45 06/14/21 06/14/21 06/14/21 06/14/21 04:02 04:29 05:00 06:00 Pulse 73 66 Resp 16 18 B/P (MAP) 99/57 (71) 102/58 (73) Pulse Ox 94 95 O2 Delivery Mechanical Ventilator Mechanical Ventilator Mechanical Ventilator Mechanical Ventilator O2 Flow Rate 55.00 45.00 55.00 FiO2 40 06/14/21 06/14/21 06/14/21 06/14/21 06:45 06:55 07:00 08:00 Pulse 65 63 64 Resp 17 17 B/P (MAP) 104/57 (73) Pulse Ox 95 95 O2 Delivery Mechanical Ventilator Mechanical Ventilator O2 Flow Rate 55.00 FiO2 45 45 06/14/21 06/14/21 06/14/21 06/14/21 08:00 08:04 09:00 09:35 Temp 36.7 Pulse 63 64 Resp 15 15 B/P (MAP) 112/62 (79) 103/57 (72) Pulse Ox 95 94 O2 Delivery Mechanical Ventilator Mechanical Ventilator Mechanical Ventilator O2 Flow Rate 55.00 55.00 45.00 06/14/21 06/14/21 06/14/21 06/14/21 10:00 10:09 11:00 11:30 Temp 37.0 Pulse 63 60 61 Resp 16 16 17 B/P (MAP) 106/56 (73) 111/65 (80) Pulse Ox 95 95 94 O2 Delivery Mechanical Ventilator Mechanical Ventilator O2 Flow Rate 45.00 45.00 FiO2 40 06/14/21 06/14/21 12:00 12:30 Pulse 65 68 Resp 18 B/P (MAP) 117/70 (86) Pulse Ox 91 O2 Delivery Mechanical Ventilator O2 Flow Rate 45.00 06/14/21 00:00 Intake Total 835 ml Output Total 1050 ml Balance -215 ml Weight (Pounds): 182 Weight (Calculated Kilograms): 82.213684 Constitutional: well-developed, well-nourished Respiratory: other (diminished bases bilat. Intubated) Cardiovascular: regular rate-rhythm; No JVD; S1 and S2, systolic murmur Gastrointestional: soft, audible bowel sounds Genital/Rectal: other (RLQ urostomy) Extremities: no lower extremity edema bilateral Neurologic/Psychiatric: other (sedated, unable to co-operate with neuro exam) Skin: No rash on exposed areas, No ulcerations on exposed areas Results/Procedures: Labs Laboratory Tests 06/13/21 15:39: Glucometer 133H 06/13/21 19:40: Glucometer 122H 06/13/21 23:13: Glucometer 120H 06/14/21 03:36: White Blood Count 9.3, Red Blood Count 3.40L, Hemoglobin 10.6L, Hematocrit 32L, Mean Corpuscular Volume 95, Mean Corpuscular Hemoglobin 31, Mean Corpuscular Hemoglobin Concent 33, Red Cell Distribution Width 13.8, Platelet Count 106L, Mean Platelet Volume 12.0, Immature Granulocyte % (Auto) 5, Neutrophils (%) (Auto) 70, Lymphocytes (%) (Auto) 13, Monocytes (%) (Auto) 7, Eosinophils (%) (Auto) 5, Basophils (%) (Auto) 1, Neutrophils # (Auto) 6.6, Lymphocytes # (Auto) 1.2, Monocytes # (Auto) 0.7, Eosinophils # (Auto) 0.4H, Basophils # (Auto) 0.1, Immature Granulocyte # (Auto) 0.5H, Sodium Level 146H, Potassium Level 3.4L, Chloride Level 106, Carbon Dioxide Level 28, Anion Gap 12, Blood Urea Nitrogen 45H, Creatinine 2.08H, Estimat Glomerular Filtration Rate 31, BUN/Creatinine Ratio 22, Glucose Level 111H, Calcium Level 7.2L, Corrected Calcium 8.5, Phosphorus Level 3.3, Magnesium Level 2.2, Total Bilirubin 1.0, Aspartate Amino Transf (AST/SGOT) 122H, Alanine Aminotransferase (ALT/SGPT) 119H, Alkaline Phosphatase 309H, Total Protein 5.3L, Albumin 2.4L 06/14/21 03:45: Blood Gas Puncture Site R RADIAL, Blood Gas Patient Temperature 36.6, Arterial Blood pH 7.50H, Arterial Blood Partial Pressure CO2 37, Arterial Blood Partial Pressure O2 111H, Arterial Blood HCO3 29H, Arterial Blood Total CO2 30.0, Arterial Blood Oxygen Saturation 99, Arterial Blood Base Excess 5.2H, Eddi Test YES-POS, Blood Gas Ventilator Setting YES, Blood Gas Inspired Oxygen NA 06/14/21 08:36: Glucometer 111H 06/14/21 11:46: Glucometer 104 Microbiology 06/12/21 Blood Culture - Preliminary, Resulted No growth 06/09/21 MRSA Screen - Final, Complete MRSA not isolated 06/09/21 Urine Culture - Final, Complete Escherichia coli Klebsiella pneumoniae Enterococcus faecalis Aerococcus urinae Procedures NAME: [facility]RISTINA [facility] REC#: [id number] PT STATUS: ADM IN : 1940 PHYSICIAN: JOVI ARTEAGA JR, MD ADMIT DATE: 06/09/21/ICU Signed Date of Exam:06/13/21 CHEST 1 VIEW, AP/PA ONLY Indication: Respiratory failure. Compared: 06/12/2021 Findings: ET tube lower thoracic trachea, OG catheter in the stomach, right IJ at the cavoatrial junction, all stable. Blunting of the angles likely small pleural effusions appears less conspicuous and likely decreased. The lungs themselves showed no focal consolidation. Impression: Likely decreased small pleural effusions, stable support apparatus, no pneumothorax, no adverse change. Dictated by: Dictated on workstation # [id number] Dict: 06/13/21 0924 Trans: 06/13/21 1158 CV [id number] Interpreted by: LAURE SOLIS Electronically signed by: LAURE SOLIS 06/13/21 1158 A/P: Assessment: Mild troponin elevation - continue with conservative management at this time - likely Type 2 [place] secondary to sepsis Echocardiogram from 06/10/[address] Arteaga showed LVEF 50%. Grade 1 diastolic dysfunction. Mild aortic root dilation, 4 cm. Mild AoV sclerosis. PASP 27 mmHg Essential hypertension - somewhat low BP at this time which prevents the addition of BB HLD - continue statin Acute kidney injury superimposed on chronic kidney disease - acute likely secondary to sepsis Sepsis d/t UTI - management per medical/eICU services Hypokalemia - replace Urostomy: - history of CA of the prostate that was treated with a robotic-assisted laparoscopic prostatectomy at by Dr. 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 Simeon. (per Dr. Harden's note) Plan: Continue current regimen Records from Dr. Arteaga have reviewed in detail Management of sepsis per medical/eICU services Further recs will be based on his hospital course Monitor lab closely Replace electrolytes as indicated CHEN CARLSON Jun 14, 2021 08:54
[2021-06-14] MEDS: PANTOPRAZOLE 40 MG (PROTONIX) VIAL IV SCH (09:11)
[2021-06-14] MEDS: ASPIRIN 81 MG CHEW (CHILDREN'S ASA) PO SCH (09:11)
[2021-06-14] MEDS: ENOXAPARIN 80 MG/0.8 ML (LOVENOX) SYR SC SCH ×2 (09:12→21:18)
--- NOTE | 2021-06-14 10:53 | Progress Note - Hospitalist ---
Subjective HPI/CC On Admission Date Seen by Provider: Jun 14, 2021 Time Seen by Provider: 08:20 Pt is an 80yoCM witha PMH of prostate and bladder cancer, HTN, HLD, and dementia who presented to the ER due to weakness and altered mental status. He is unable to provide me any history. He has two daughters at the bedside who relay all history except for what is obtained from the chart. He is normally ambulatory and lives in an independent living ([facility] in [place]) who has not felt well for the past couple of days and was worse yesterday. Daughter reports that he would not get out of bed so they recommended that their mom call the facilitys' nurse. When the nurse arrived they called EMS. He was found to be in septic shock from a UTI and admitted to the ICU. Overnight he has continued to worsen and was quite agitated requiring precedex. He then became hypotensive and required central line placement for pressors. Subjective/Events-last exam He remains intubated and sedated. Objective Exam Vital Signs Vital Signs Date Time Temp Pulse Resp B/P (MAP) Pulse Ox O2 Delivery O2 Flow Rate FiO2 06/14/21 10:09 60 16 95 40 06/14/21 10:00 106/56 (73) Mechanical Ventilator 45.00 06/14/21 08:04 36.7 Capillary Refill : Less Than 3 Seconds General Appearance: No Apparent Distress, Obese, Other (Intubated and sedated) Respiratory: Lungs Clear, Normal Breath Sounds, No Respiratory Distress, Other (Intubated and mechanically ventilated) Cardiovascular: Regular Rate, Rhythm, No Edema, No Murmur Gastrointestinal: Normal Bowel Sounds, Soft Extremity: Normal Inspection, No Pedal Edema Neurologic/Psychiatric: Other (Sedated) Skin: Normal Color, Warm/Dry Results/Procedures Lab Laboratory Tests 06/14/21 03:36 Patient resulted labs reviewed. Imaging: Reviewed Imaging Report Assessment/Plan Assessment and Plan Assess & Plan/Chief Complaint Polymicrobial UTI Klebsiella pneumoniae bacteremia MACKENZIE on CKD NSTEMI, likely type II Thrombocytopenia Elevated LFTs Continue Unasyn Off pressors Resume gentle fluids TeleICU consulted, appreciate assistance Cardiology consulted, appreciate assistance HTN Hold home meds due to hypotension Obesity Clinically significant, no acute management needs DVT ppx: Lovenox Lactic acidosis, resolved Septic shock, resolved Critical Care Critically Ill Patient Diagnosis/Problems Diagnosis/Problems (1) Septic shock Status: Resolved Resolution Date/Time: 06/14/21 @ 10:51 (2) Urinary tract infection Status: Acute Qualifiers: Urinary tract infection type: site unspecified Hematuria presence: without hematuria Qualified Codes: N39.0 - Urinary tract infection, site not specified (3) Acute kidney injury superimposed on chronic kidney disease Status: Acute (4) Non-ST elevation myocardial infarction (NSTEMI), initial care episode Status: Acute (5) Bacteremia due to Klebsiella pneumoniae Status: Acute LEANN MOLINA MD Jun 14, 2021 10:53
--- NOTE | 2021-06-14 10:57 | Progress Note - Cardiology ---
Cardiology SOAP Progress Note Subjective: Intubated, sedated, and on mech vent Objective: I&O/Vital Signs 06/13/21 06/13/21 06/13/21 06/13/21 23:00 23:02 23:08 23:59 Temp 37.7 Pulse 74 77 Resp 20 22 B/P (MAP) 126/69 (88) Pulse Ox 91 96 O2 Delivery Mechanical Ventilator Mechanical Ventilator Mechanical Ventilator O2 Flow Rate 40.00 45.00 FiO2 45 40 06/14/21 06/14/21 06/14/21 06/14/21 00:00 01:00 01:00 02:00 Pulse 70 66 69 68 Resp 19 15 19 B/P (MAP) 106/60 (75) 109/57 (74) 121/70 (87) Pulse Ox 93 94 93 O2 Delivery Mechanical Ventilator Mechanical Ventilator Mechanical Ventilator O2 Flow Rate 45.00 45.00 45.00 06/14/21 06/14/21 06/14/21 06/14/21 02:52 03:00 03:04 03:38 Temp 36.6 Pulse 66 63 86 Resp 11 22 B/P (MAP) 112/69 113/82 (92) Pulse Ox 94 94 O2 Delivery Mechanical Ventilator O2 Flow Rate 45.00 FiO2 45 06/14/21 06/14/21 06/14/21 06/14/21 04:00 04:02 04:29 05:00 Pulse 75 73 Resp 21 16 B/P (MAP) 106/82 (90) 99/57 (71) Pulse Ox 93 94 O2 Delivery Mechanical Ventilator Mechanical Ventilator Mechanical Ventilator Mechanical Ventilator O2 Flow Rate 45.00 55.00 45.00 FiO2 40 06/14/21 06/14/21 06/14/21 06/14/21 06:00 06:45 06:55 07:00 Pulse 66 65 63 64 Resp 18 17 17 B/P (MAP) 102/58 (73) 104/57 (73) Pulse Ox 95 95 95 O2 Delivery Mechanical Ventilator Mechanical Ventilator O2 Flow Rate 55.00 55.00 FiO2 45 06/14/21 06/14/21 06/14/21 06/14/21 08:00 08:00 08:04 09:00 Temp 36.7 Pulse 63 64 Resp 15 15 B/P (MAP) 112/62 (79) 103/57 (72) Pulse Ox 95 94 O2 Delivery Mechanical Ventilator Mechanical Ventilator Mechanical Ventilator O2 Flow Rate 55.00 55.00 FiO2 45 06/14/21 06/14/21 06/14/21 09:35 10:00 10:09 Pulse 63 60 Resp 16 16 B/P (MAP) 106/56 (73) Pulse Ox 95 95 O2 Delivery Mechanical Ventilator Mechanical Ventilator O2 Flow Rate 45.00 45.00 FiO2 40 06/14/21 00:00 Intake Total 835 ml Output Total 1050 ml Balance -215 ml Weight (Pounds): 182 Weight (Calculated Kilograms): 82.236725 Constitutional: well-developed, well-nourished, other (Intubated, sedated, and on mech vent) Respiratory: other (diminished bases bilat. Intubated) Cardiovascular: regular rate-rhythm; No JVD; S1 and S2, systolic murmur Gastrointestional: soft, audible bowel sounds Genital/Rectal: other (RLQ urostomy) Extremities: no lower extremity edema bilateral Neurologic/Psychiatric: other (sedated, unable to co-operate with neuro exam) Skin: No rash on exposed areas, No ulcerations on exposed areas Results/Procedures: Labs Laboratory Tests 06/13/21 11:54: Glucometer 140H 06/13/21 15:39: Glucometer 133H 06/13/21 19:40: Glucometer 122H 06/13/21 23:13: Glucometer 120H 06/14/21 03:36: White Blood Count 9.3, Red Blood Count 3.40L, Hemoglobin 10.6L, Hematocrit 32L, Mean Corpuscular Volume 95, Mean Corpuscular Hemoglobin 31, Mean Corpuscular Hemoglobin Concent 33, Red Cell Distribution Width 13.8, Platelet Count 106L, Mean Platelet Volume 12.0, Immature Granulocyte % (Auto) 5, Neutrophils (%) (Auto) 70, Lymphocytes (%) (Auto) 13, Monocytes (%) (Auto) 7, Eosinophils (%) (Auto) 5, Basophils (%) (Auto) 1, Neutrophils # (Auto) 6.6, Lymphocytes # (Auto) 1.2, Monocytes # (Auto) 0.7, Eosinophils # (Auto) 0.4H, Basophils # (Auto) 0.1, Immature Granulocyte # (Auto) 0.5H, Sodium Level 146H, Potassium Level 3.4L, Chloride Level 106, Carbon Dioxide Level 28, Anion Gap 12, Blood Urea Nitrogen 45H, Creatinine 2.08H, Estimat Glomerular Filtration Rate 31, BUN/Creatinine Ratio 22, Glucose Level 111H, Calcium Level 7.2L, Corrected Calcium 8.5, Phosphorus Level 3.3, Magnesium Level 2.2, Total Bilirubin 1.0, Aspartate Amino Transf (AST/SGOT) 122H, Alanine Aminotransferase (ALT/SGPT) 119H, Alkaline Phosphatase 309H, Total Protein 5.3L, Albumin 2.4L 06/14/21 03:45: Blood Gas Puncture Site R RADIAL, Blood Gas Patient Temperature 36.6, Arterial Blood pH 7.50H, Arterial Blood Partial Pressure CO2 37, Arterial Blood Partial Pressure O2 111H, Arterial Blood HCO3 29H, Arterial Blood Total CO2 30.0, Arterial Blood Oxygen Saturation 99, Arterial Blood Base Excess 5.2H, Eddi Test YES-POS, Blood Gas Ventilator Setting YES, Blood Gas Inspired Oxygen NA 06/14/21 08:36: Glucometer 111H Microbiology 06/12/21 Blood Culture - Preliminary, Resulted No growth 06/09/21 MRSA Screen - Final, Complete MRSA not isolated 06/09/21 Urine Culture - Final, Complete Escherichia coli Klebsiella pneumoniae Enterococcus faecalis Aerococcus urinae Laboratory Tests 06/13/21 02:09 06/14/21 03:36 A/P: Assessment: Sepsis d/t UTI, management per medical/eICU services Mild troponin elevation likely Type 2 [place] secondary to sepsis Echocardiogram from 06/10/[address] Arteaga showed LVEF 50%. Grade 1 diastolic dysfunction. Mild aortic root dilation, 4 cm. Mild AoV sclerosis. PASP 27 m mHg Essential hypertension, somewhat low BP at this time which prevents the addition of BB HLD treated with statins Acute kidney injury superimposed on chronic kidney disease, acute component likely secondary to sepsis Hypokalemia Urostomy: - history of CA of the prostate that was treated with a robotic-assisted laparoscopic prostatectomy at by Dr. 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 Simeon. (per Dr. Harden's note) Plan: I examined the patient and reviewed his records Complex management due to multiple comorbidities Management of sepsis per medical/eICU services Further recs will be based on his hospital course Monitor lab closely Replace electrolytes as indicated MEDHAT DOTSON MD FACP [facility] CCDS Jun 14, 2021 10:57
--- NOTE | 2021-06-14 11:17 | Tele-ICU Progress Note ---
Subjective Date Seen by a Provider: Jun 14, 2021 Time Seen by a Provider: 11:17 Sepsis Event Evaluation Height, Weight, BMI Height: 5'9.00" Weight: 182lbs. oz. 82.538540xx; 27.81 BMI Method: Exam Exam Patient acknowledged, consented, and participated in this virtual visit which was conducted using real time audio/video Vital Signs Date Time Temp Pulse Resp B/P (MAP) Pulse Ox O2 Delivery O2 Flow Rate FiO2 06/14/21 11:00 61 17 111/65 (80) 94 Mechanical Ventilator 45.00 06/14/21 10:09 60 16 95 40 06/14/21 10:00 63 16 106/56 (73) 95 Mechanical Ventilator 45.00 06/14/21 09:35 Mechanical Ventilator 45.00 06/14/21 09:00 64 15 103/57 (72) 94 Mechanical Ventilator 55.00 06/14/21 08:04 36.7 06/14/21 08:00 63 15 112/62 (79) 95 Mechanical Ventilator 55.00 06/14/21 08:00 Mechanical Ventilator 45 06/14/21 07:00 64 17 104/57 (73) 95 Mechanical Ventilator 55.00 06/14/21 06:55 63 06/14/21 06:45 65 17 95 45 06/14/21 06:00 66 18 102/58 (73) 95 Mechanical Ventilator 55.00 06/14/21 05:00 73 16 99/57 (71) 94 Mechanical Ventilator 45.00 06/14/21 04:29 Mechanical Ventilator 55.00 06/14/21 04:02 Mechanical Ventilator 40 06/14/21 04:00 75 21 106/82 (90) 93 Mechanical Ventilator 45.00 06/14/21 03:38 36.6 06/14/21 03:04 86 22 94 45 06/14/21 03:00 63 11 113/82 (92) 94 Mechanical Ventilator 45.00 06/14/21 02:52 66 112/69 06/14/21 02:00 68 19 121/70 (87) 93 Mechanical Ventilator 45.00 06/14/21 01:00 69 15 109/57 (74) 94 Mechanical Ventilator 45.00 06/14/21 01:00 66 06/14/21 00:00 70 19 106/60 (75) 93 Mechanical Ventilator 45.00 06/13/21 23:59 Mechanical Ventilator 40 06/13/21 23:08 37.7 Mechanical Ventilator 45.00 06/13/21 23:02 77 22 96 45 06/13/21 23:00 74 20 126/69 (88) 91 Mechanical Ventilator 40.00 06/13/21 22:00 72 17 120/67 (84) 92 Mechanical Ventilator 40.00 06/13/21 21:00 75 16 107/62 (77) 92 Mechanical Ventilator 40.00 06/13/21 20:00 72 18 121/69 (86) 91 Mechanical Ventilator 40.00 06/13/21 20:00 Mechanical Ventilator 40 06/13/21 19:55 36.3 06/13/21 19:51 71 121/75 06/13/21 19:00 77 92/56 (68) 90 Mechanical Ventilator 40.00 06/13/21 19:00 80 06/13/21 18:42 36.4 06/13/21 18:00 71 14 121/75 (90) 98 Mechanical Ventilator 40.00 06/13/21 17:58 70 22 98 50 06/13/21 17:49 38.1 06/13/21 17:00 77 16 100/59 (73) 94 Mechanical Ventilator 40.00 06/13/21 16:08 37.8 06/13/21 16:00 Mechanical Ventilator 50 06/13/21 16:00 82 23 87/52 (64) 94 Mechanical Ventilator 40.00 06/13/21 15:00 81 19 114/63 (80) 91 Mechanical Ventilator 40.00 06/13/21 14:03 80 24 92 40 06/13/21 14:00 80 19 99/52 (68) 94 Mechanical Ventilator 40.00 06/13/21 13:23 120/83 06/13/21 13:00 68 20 115/75 (88) 96 Mechanical Ventilator 50.00 06/13/21 12:44 72 06/13/21 12:00 Mechanical Ventilator 50 06/13/21 12:00 75 24 102/63 (76) 91 Mechanical Ventilator 50.00 06/13/21 11:56 36.3 I & O 06/14/21 07:00 Intake Total 1690 ml Output Total 1550 ml Balance 140 ml Height & Weight Height: 5'9.00" Weight: 182lbs. oz. 82.942107cy; 27.81 BMI Method: General Appearance: No Apparent Distress, Obese, Other (Intubated and sedated) HEENT: PERRL/EOMI, Moist Mucous Membranes Neck: Full Range of Motion, Supple Respiratory: Lungs Clear, Normal Breath Sounds, No Respiratory Distress, Other (Intubated and mechanically ventilated) Cardiovascular: Regular Rate, Rhythm, No Edema, No Murmur Capillary Refill: Less Than 3 Seconds Gastrointestinal: normal bowel sounds, non tender, soft, no organomegaly, other (urostomy, scrotal edema) Extremity: Normal Inspection, No Pedal Edema Neurologic/Psychiatric: Other (Sedated) Skin: Normal Color, Warm/Dry Results Lab Laboratory Tests 06/13/21 02:09 06/14/21 03:36 Assessment/Plan Assessment/Plan (Tele-ICU Physician , Progress Note ) Available chart/ vitals / labs / Images reviewed Video assessment done using teleICU camera, rest of exam as per RN discussed with RN Events overnight : Afebrile hemodynamically stable, no pressors, I/O = pos 1700 Drips: off levo , off bicarb VENT SETTINGS. 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 bacteremia- klebsiella - on abx - repeat blood cx 06/12- neg so far Elev trop / NSTEMI --ECHO 01/11/2021 - EF 50% grd I dst dsfn, No pulm HTN - lovenox 80 bid Elevated D dimer > 20 - NEED TO BE EVALUATED - improving - sepsis related ? - Lovenox 80q12 - as per PCP / cards Elev transaminases - stable MACKENZIE ? CKD - improving with agressive hydration CR@2.0 now -no hydro on Ct 06/09 Met acidosis - STOP bicarb Developing effusion on LEFT on cxr 06/10 -stable subacute to chronic diverticulitis by CT 06/09 history of CA of the prostate ->a robotic-assisted laparoscopic prostatectomy h/o cancer bladder and underwent a radical cystectomy with ileal loop diversion Lines : R IJ (Central Line Necessity Reviewed) Stanton: - urostomy OG: + Nutrition: TF Analgesia: ns Anxiety/ delirium na VTE Prophylaxis: lovenox 80 q 12 Stress Ulcer Prophylaxis: ppi Glycemic Control: + A total of 36 minutes of critical care time was devoted to this patient today, required to treat and/or prevent further deterioration of critical care condition ( as above GORAN GATES MD Jun 14, 2021 11:17
[2021-06-14] MEDS: D5 1/2 NS W/KCL 20 MEQ/L 1,000 ML IV SCH (11:39)
[2021-06-14] MEDS: DexMEDEtomidine 250 ML DRIP 250 ML IV SCH (15:43)
[2021-06-14] MEDS: ROSUVASTATIN 20 MG (CRESTOR) TABLET PO SCH (21:17)
[2021-06-15] MEDS: D5 1/2 NS W/KCL 20 MEQ/L 1,000 ML IV SCH ×2 (01:17→13:58)
[2021-06-15 02:07] VITALS: BP 133/77
[2021-06-15] MEDS: DexMEDEtomidine 250 ML DRIP 250 ML IV SCH (02:37)
[2021-06-15] MEDS: AMPICILLIN/SULBACTAM INJECTION 1.5 GM in NS (IVPB) 100 ML IV SCH ×4 (04:45→23:10)
[2021-06-15 04:51] LABS: ABG BASE EXCESS 4.7 MMOL/L (-2.5-2.5); ABG OXYGEN SATURATION 80 % (94-100); ABG PCO2 38 MMHG (35-45); ABG PH 7.49 (7.37-7.43); ABG PO2 49 MMHG (79-93); ABG TCO2 29.1 MMOL/L (21.0-31.0)
[2021-06-15 04:52] LABS: HEMOGLOBIN 10.2 g/dL (13.3-17.7); MEAN CORPUSCULAR HEMOGLOBIN 31 pg (25-34)
[2021-06-15 04:53] LABS: ALLENS TEST YES-POS; INSPIRED O2 40%; VENTILATOR YES
[2021-06-15 04:54] LABS: BASOPHILS % (AUTO) 0 % (0-10); EOSINOPHILS # (AUTO) 0.4 10^3/uL (0.0-0.3); EOSINOPHILS % (AUTO) 4 % (0-10); HEMATOCRIT 32 % (40-54); LYMPHOCYTES # (AUTO) 1.2 10^3/uL (1.0-4.0); LYMPHOCYTES % (AUTO) 12 % (12-44); MEAN CORPUSCULAR HGB CONC 32 g/dL (32-36); MEAN CORPUSCULAR VOLUME 95 fL (80-99); MEAN PLATELET VOLUME 11.8 fL (9.0-12.2); MONOCYTES # (AUTO) 0.8 10^3/uL (0.0-1.0); MONOCYTES % (AUTO) 8 % (0-12); NEUTROPHILS # (AUTO) 7.3 10^3/uL (1.8-7.8); NEUTROPHILS % (AUTO) 72 % (42-75); PATIENT TEMP 37.7; PLATELET COUNT 121 10^3/uL (130-400); WHITE BLOOD COUNT 10.1 10^3/uL (4.3-11.0)
[2021-06-15 05:00] LABS: ALBUMIN 2.3 GM/DL (3.2-4.5)
[2021-06-15 05:01] LABS: POTASSIUM 3.6 MMOL/L (3.6-5.0)
[2021-06-15 05:02] LABS: CALCIUM 7.2 MG/DL (8.5-10.1)
[2021-06-15 05:03] LABS: TOTAL PROTEIN 5.3 GM/DL (6.4-8.2)
[2021-06-15 05:05] LABS: BILIRUBIN,TOTAL 0.7 MG/DL (0.1-1.0)
[2021-06-15 05:06] LABS: PHOSPHORUS 2.7 MG/DL (2.3-4.7)
[2021-06-15 05:07] LABS: CREATININE SERUM 2.07 MG/DL (0.60-1.30)
[2021-06-15 05:09] LABS: MAGNESIUM 2.2 MG/DL (1.6-2.4)
[2021-06-15] MEDS: KCL 20 MEQ TAB (K-DUR) PO SCH (05:26)
[2021-06-15] MEDS: MAGNESIUM 1 GM/100 ML IVPB 100 ML IV SCH (05:26)
[2021-06-15] MEDS: POTASSIUM CL 10MEQ/50ML IVPB 50 ML IV SCH (05:26)
[2021-06-15 06:59] VITALS: BP 128/71
[2021-06-15] MEDS: PANTOPRAZOLE 40 MG (PROTONIX) VIAL IV SCH (08:20)
[2021-06-15] MEDS: ASPIRIN 81 MG CHEW (CHILDREN'S ASA) PO SCH (08:20)
--- NOTE | 2021-06-15 08:40 | Tele-ICU Progress Note ---
Subjective Date Seen by a Provider: Jun 15, 2021 Time Seen by a Provider: 10:08 Sepsis Event Evaluation Height, Weight, BMI Height: 5'9.00" Weight: 182lbs. oz. 82.923210gm; 27.81 BMI Method: Exam Exam Patient acknowledged, consented, and participated in this virtual visit which was conducted using real time audio/video Vital Signs Date Time Temp Pulse Resp B/P (MAP) Pulse Ox O2 Delivery O2 Flow Rate FiO2 06/15/21 08:24 Mechanical Ventilator 50.00 06/15/21 08:02 37.3 06/15/21 08:00 53 13 130/72 (91) 91 Mechanical Ventilator 40.00 06/15/21 07:00 53 18 134/83 (100) 91 Mechanical Ventilator 40.00 06/15/21 07:00 66 06/15/21 06:59 55 18 92 45 06/15/21 06:00 54 18 136/75 (95) 91 Mechanical Ventilator 40.00 06/15/21 05:00 55 19 139/77 (97) 91 Mechanical Ventilator 40.00 06/15/21 04:34 37.7 06/15/21 04:00 Mechanical Ventilator 40 06/15/21 04:00 56 10 131/72 (91) 91 Mechanical Ventilator 40.00 06/15/21 03:00 56 16 127/71 (89) 91 Mechanical Ventilator 40.00 06/15/21 02:37 56 125/68 06/15/21 02:07 52 21 94 40 06/15/21 02:00 63 19 133/75 (94) 94 Mechanical Ventilator 40.00 06/15/21 01:00 54 24 134/75 (94) 93 Mechanical Ventilator 40.00 06/15/21 00:48 58 06/15/21 00:07 36.6 06/15/21 00:00 Mechanical Ventilator 40 06/15/21 00:00 56 19 131/77 (95) 94 Mechanical Ventilator 40.00 06/14/21 23:00 60 19 124/76 (92) 93 Mechanical Ventilator 40.00 06/14/21 22:00 63 23 115/70 (85) 93 Mechanical Ventilator 40.00 06/14/21 21:24 58 18 95 40 06/14/21 21:00 58 18 133/71 (91) 93 Mechanical Ventilator 40.00 06/14/21 20:30 37.6 06/14/21 20:00 58 16 136/77 (96) 93 Mechanical Ventilator 40.00 06/14/21 20:00 Mechanical Ventilator 40 06/14/21 19:25 63 06/14/21 19:00 62 16 118/55 (76) 93 Mechanical Ventilator 40.00 06/14/21 19:00 Mechanical Ventilator 40.00 06/14/21 18:37 62 18 92 40 06/14/21 18:00 64 16 114/58 (76) 91 Mechanical Ventilator 45.00 06/14/21 17:00 71 24 109/56 (73) 90 Mechanical Ventilator 45.00 06/14/21 16:55 37.6 06/14/21 16:00 75 13 139/73 (95) 90 Mechanical Ventilator 45.00 06/14/21 16:00 Mechanical Ventilator 40 06/14/21 15:43 146/79 06/14/21 15:32 89 40 90 40 06/14/21 15:00 75 19 151/88 (109) 91 Mechanical Ventilator 45.00 06/14/21 14:22 73 23 92 40 06/14/21 14:00 71 18 143/88 (106) 92 Mechanical Ventilator 45.00 06/14/21 13:00 64 23 130/77 (94) 94 Mechanical Ventilator 45.00 06/14/21 12:30 68 06/14/21 12:00 65 18 117/70 (86) 91 Mechanical Ventilator 45.00 06/14/21 12:00 Mechanical Ventilator 45 06/14/21 11:30 37.0 06/14/21 11:00 61 17 111/65 (80) 94 Mechanical Ventilator 45.00 06/14/21 10:09 60 16 95 40 06/14/21 10:00 63 16 106/56 (73) 95 Mechanical Ventilator 45.00 06/14/21 09:35 Mechanical Ventilator 45.00 06/14/21 09:00 64 15 103/57 (72) 94 Mechanical Ventilator 55.00 I & O 06/15/21 07:00 Intake Total 2375 ml Output Total 1125 ml Balance 1250 ml Height & Weight Height: 5'9.00" Weight: 182lbs. oz. 82.796304cp; 27.81 BMI Method: General Appearance: No Apparent Distress, Obese, Other (Intubated and sedated) HEENT: PERRL/EOMI, Moist Mucous Membranes Neck: Full Range of Motion, Supple Respiratory: Lungs Clear, Normal Breath Sounds, No Respiratory Distress, Other (Intubated and mechanically ventilated) Cardiovascular: Regular Rate, Rhythm, No Edema, No Murmur Capillary Refill: Less Than 3 Seconds Gastrointestinal: normal bowel sounds, non tender, soft, no organomegaly, other (urostomy, scrotal edema) Extremity: Normal Inspection, No Pedal Edema Neurologic/Psychiatric: Other (Sedated) Skin: Normal Color, Warm/Dry Results Lab Laboratory Tests 06/14/21 03:36 06/15/21 04:36 Assessment/Plan Assessment/Plan Assessment/Plan (Tele-ICU Physician , Progress Note ) Available chart/ vitals / labs / Images reviewed Video assessment done using teleICU camera, rest of exam as per RN discussed with RN Events overnight : FEBRILE hemodynamically stable, no pressors, I/O = pos 1700 Drips: precedex 1 , off levo , off bicarb VENT SETTINGS. AC 15 Vt 480 FiO2 50% PEEP 5 ABG reviewed Sedation: RASS - 2 , precedex 1.0 As per RN exam : bilat edema Consultants: isabell , urology Hospital course: (06/09) 80yr old male admitted with confusion, UTI, and fever, INTUBATED , neg COVID 06/13 - AC 15 Vt 480 FiO2 50% PEEP 5 06/14 FAILED SBT with low TV and ? rr - will kepp trying today A/P Acute resp failure - intubated for met acidois - AC 15 ( rr sp 17 ) Vt 480 FiO2 45% PEEP 5 PAP 19 - WILL DECREASE RR TO 12 , OFF BICARB FOR 24 H - CXR PENDING - mental status can be a problem : dementia [employer] WILL TRY SBT TODAY AGAIN , ( FAILED SBT with low TV and ? rr 06/14 ) VENT SETTINGS ADJUSTED Sepsis UTI . bacteremia- klebsiella - on abx - repeat blood cx 06/12- neg so far Elev trop / NSTEMI --ECHO 01/11/2021 - EF 50% grd I dst dsfn, No pulm HTN - lovenox 80 bid Elevated D dimer > 20 - NEED TO BE EVALUATED - improving - sepsis related ? - Lovenox 80q12 - as per PCP / cards Elev transaminases - stable MACKENZIE ? CKD - improving with agressive hydration CR@2.0 now -no hydro on Ct 06/09 Met acidosis - OFF bicarb Developing effusion on LEFT on cxr 06/10 -stable subacute to chronic diverticulitis by CT 06/09 history of CA of the prostate ->a robotic-assisted laparoscopic prostatectomy h/o cancer bladder and underwent a radical cystectomy with ileal loop diversion Lines : R IJ (Central Line Necessity Reviewed) Stanton: - urostomy OG: + Nutrition: TF - tolerates well Analgesia: ns Anxiety/ delirium na VTE Prophylaxis: lovenox 80 q 12 Stress Ulcer Prophylaxis: ppi Glycemic Control: + A total of 36 minutes of critical care time was devoted to this patient today, required to treat and/or prevent further deterioration of critical care condition ( as above GORAN GATES MD Jun 15, 2021 08:40
[2021-06-15] MEDS: ENOXAPARIN 80 MG/0.8 ML (LOVENOX) SYR SC SCH ×2 (09:21→21:23)
--- NOTE | 2021-06-15 09:56 | Progress Note - Cardiology ---
Cardiology SOAP Progress Note Subjective: Intubated, sedated, on mech vent, unable to communicate Objective: I&O/Vital Signs 06/14/21 06/14/21 06/15/21 06/15/21 22:00 23:00 00:00 00:00 Pulse 63 60 56 Resp 23 19 19 B/P (MAP) 115/70 (85) 124/76 (92) 131/77 (95) Pulse Ox 93 93 94 O2 Delivery Mechanical Ventilator Mechanical Ventilator Mechanical Ventilator Mechanical Ventilator O2 Flow Rate 40.00 40.00 40.00 FiO2 40 06/15/21 06/15/21 06/15/21 06/15/21 00:07 00:48 01:00 02:00 Temp 36.6 Pulse 58 54 63 Resp 24 19 B/P (MAP) 134/75 (94) 133/75 (94) Pulse Ox 93 94 O2 Delivery Mechanical Ventilator Mechanical Ventilator O2 Flow Rate 40.00 40.00 06/15/21 06/15/21 06/15/21 06/15/21 02:07 02:37 03:00 04:00 Pulse 52 56 56 56 Resp 21 16 10 B/P (MAP) 125/68 127/71 (89) 131/72 (91) Pulse Ox 94 91 91 O2 Delivery Mechanical Ventilator Mechanical Ventilator O2 Flow Rate 40.00 40.00 FiO2 40 06/15/21 06/15/21 06/15/21 06/15/21 04:00 04:34 05:00 06:00 Temp 37.7 Pulse 55 54 Resp 19 18 B/P (MAP) 139/77 (97) 136/75 (95) Pulse Ox 91 91 O2 Delivery Mechanical Ventilator Mechanical Ventilator Mechanical Ventilator O2 Flow Rate 40.00 40.00 FiO2 40 06/15/21 06/15/21 06/15/21 06/15/21 06:59 07:00 07:00 08:00 Pulse 55 66 53 Resp 18 18 B/P (MAP) 134/83 (100) Pulse Ox 92 91 O2 Delivery Mechanical Ventilator Mechanical Ventilator O2 Flow Rate 40.00 FiO2 45 45 06/15/21 06/15/21 06/15/21 06/15/21 08:00 08:02 08:24 09:00 Temp 37.3 Pulse 53 55 Resp 13 124 B/P (MAP) 130/72 (91) 124/66 (85) Pulse Ox 91 66 O2 Delivery Mechanical Ventilator Mechanical Ventilator Mechanical Ventilator O2 Flow Rate 40.00 50.00 50.00 06/15/21 00:00 Intake Total 730 ml Output Total 625 ml Balance 105 ml Weight (Pounds): 182 Weight (Calculated Kilograms): 82.100094 Constitutional: well-developed, well-nourished, other (Intubated, sedated, and on mech vent) Respiratory: other (diminished bases bilat. Intubated) Cardiovascular: regular rate-rhythm; No JVD; S1 and S2, systolic murmur Gastrointestional: soft, audible bowel sounds Genital/Rectal: other (RLQ urostomy) Extremities: no lower extremity edema bilateral Neurologic/Psychiatric: other (sedated, unable to co-operate with neuro exam) Skin: No rash on exposed areas, No ulcerations on exposed areas Results/Procedures: Labs Laboratory Tests 06/14/21 11:46: Glucometer 104 06/14/21 20:36: Glucometer 152H 06/14/21 23:00: Glucometer 180H 06/15/21 04:36: White Blood Count 10.1, Red Blood Count 3.33L, Hemoglobin 10.2L, Hematocrit 32L, Mean Corpuscular Volume 95, Mean Corpuscular Hemoglobin 31, Mean Corpuscular Hemoglobin Concent 32, Red Cell Distribution Width 14.0, Platelet Count 121L, Mean Platelet Volume 11.8, Immature Granulocyte % (Auto) 5, Neutrophils (%) (Auto) 72, Lymphocytes (%) (Auto) 12, Monocytes (%) (Auto) 8, Eosinophils (%) (Auto) 4, Basophils (%) (Auto) 0, Neutrophils # (Auto) 7.3, Lymphocytes # (Auto) 1.2, Monocytes # (Auto) 0.8, Eosinophils # (Auto) 0.4H, Basophils # (Auto) 0.0, Immature Granulocyte # (Auto) 0.5H, Percent Immature Platelet Fraction 8.8H, Blood Gas Puncture Site RIGHT RADIAL, Blood Gas Patient Temperature 37.7, Arterial Blood pH 7.49H, Arterial Blood Partial Pressure CO2 38, Arterial Blood Partial Pressure O2 49L, Arterial Blood HCO3 28H, Arterial Blood Total CO2 29.1, Arterial Blood Oxygen Saturation 80L, Arterial Blood Base Excess 4.7H, Eddi T est YES-POS, Blood Gas Ventilator Setting YES, Blood Gas Inspired Oxygen 40%, Sodium Level 144, Potassium Level 3.6, Chloride Level 109H, Carbon Dioxide Level 27, Anion Gap 8, Blood Urea Nitrogen 46H, Creatinine 2.07H, Estimat Glomerular Filtration Rate 31, BUN/Creatinine Ratio 22, Glucose Level 158H, Calcium Level 7.2L, Corrected Calcium 8.6, Phosphorus Level 2.7, Magnesium Level 2.2, Total Bilirubin 0.7, Aspartate Amino Transf (AST/SGOT) 89H, Alanine Aminotransferase (ALT/SGPT) 98H, Alkaline Phosphatase 311H, Total Protein 5.3L, Albumin 2.3L 06/15/21 09:13: Glucometer 135H Microbiology 06/12/21 Blood Culture - Preliminary, Resulted No growth 06/09/21 MRSA Screen - Final, Complete MRSA not isolated 06/09/21 Urine Culture - Final, Complete Escherichia coli Klebsiella pneumoniae Enterococcus faecalis Aerococcus urinae Laboratory Tests 06/14/21 03:36 06/15/21 04:36 A/P: Assessment: Sepsis d/t UTI, management per medical/eICU services Mild troponin elevation likely Type 2 [place] secondary to sepsis Echocardiogram from 06/10/[address] Arteaga showed LVEF 50%, grade 1 diastolic dysfunction, mild aortic root dilation (4 cm), mild AoV sclerosis, PASP 27 mmHg Essential hypertension, somewhat low BP at this time which prevents the addition of BB HLD treated with statins Acute kidney injury superimposed on chronic kidney disease, acute component like ly secondary to sepsis Urostomy: - history of CA of the prostate that was treated with a robotic-assisted laparoscopic prostatectomy at by Dr. 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 Simeon. (per Dr. Harden's note) Plan: Complex management due to multiple comorbidities Management of sepsis per medical/eICU services Reduce enoxaparin to DVT prophylaxis dose if approved by Dr Thornton and ICU svce Monitor lab closely Replace electrolytes as indicated MEDHAT DOTSON MD FACP [facility] CCDS Jun 15, 2021 09:56
--- NOTE | 2021-06-15 10:04 | Diagnostic Imaging Report ---
PROCEDURE: US Venous Lower Ext Abel. TECHNIQUE: Multiple real-time grayscale images were obtained over the lower extremities in various projections, bilaterally. Additional duplex Doppler and color Doppler images were also obtained. INDICATION: Elevated d-dimer. The bilateral lower extremity femoropopliteal deep venous system showed normal color flow, normal compressibility and normal waveforms. There is no deep vein thrombus and no visualized superficial thrombus. No mass or fluid collection is documented. IMPRESSION: Normal negative bilateral lower extremity venous Doppler and ultrasound exam. Dictated by: Dictated on workstation # [id number]
--- NOTE | 2021-06-15 10:46 | Diagnostic Imaging Report ---
INDICATION: Hypoxia Compared with study 06/13 FINDINGS: ET tube lower thoracic trachea. OG in the stomach. Right IJ at the lower SVC all stable. There has likely been further reduction if not near complete resolution of small pleural effusions. Some mild patchy perihilar and basilar airspace or groundglass opacity slightly increased. No pneumothorax. IMPRESSION: Likely further reduction in tiny pleural effusions. However increased perihilar and basilar groundglass or airspace density edema versus pneumonia. No pneumothorax with stable support apparatus. Dictated by: Dictated on workstation # [id number]
[2021-06-15] MEDS: PROPOFOL DRIP (ICU) 100 ML IV SCH (12:10)
[2021-06-15 13:53] LABS: ABG BASE EXCESS 2.6 MMOL/L (-2.5-2.5); ABG OXYGEN SATURATION 95 % (94-100); ABG PCO2 36 MMHG (35-45); ABG PH 7.48 (7.37-7.43); ABG PO2 78 MMHG (79-93); ABG TCO2 26.9 MMOL/L (21.0-31.0)
[2021-06-15 13:54] LABS: ALLENS TEST YES-POS; INSPIRED O2 50%; PATIENT TEMP 37.7; VENTILATOR YES
[2021-06-15] MEDS: NOREPINEPHRINE 8 MG/250 ML 250 ML IV SCH (14:03)
[2021-06-15] MEDS: hydrALAZINE (APESOLINE) 20 MG/ML VIAL IV PRN ×2 (17:47→21:23)
--- NOTE | 2021-06-15 17:58 | Progress Note - Hospitalist ---
Subjective HPI/CC On Admission Date Seen by Provider: Jun 15, 2021 Time Seen by Provider: 09:00 Pt is an 80yoCM witha PMH of prostate and bladder cancer, HTN, HLD, and dementia who presented to the ER due to weakness and altered mental status. He is unable to provide me any history. He has two daughters at the bedside who relay all history except for what is obtained from the chart. He is normally ambulatory and lives in an independent living ([facility] in [place]) who has not felt well for the past couple of days and was worse yesterday. Daughter reports that he would not get out of bed so they recommended that their mom call the facilitys' nurse. When the nurse arrived they called EMS. He was found to be in septic shock from a UTI and admitted to the ICU. Overnight he has continued to worsen and was quite agitated requiring precedex. He then became hypotensive and required central line placement for pressors. Subjective/Events-last exam He remains intubated and sedated. Objective Exam Vital Signs Vital Signs Date Time Temp Pulse Resp B/P (MAP) Pulse Ox O2 Delivery O2 Flow Rate FiO2 06/15/21 17:00 82 184/91 (122) 100 High Flow N/C 8.00 06/15/21 15:54 37.1 06/15/21 15:00 40 06/15/21 11:03 50 Capillary Refill : Less Than 3 Seconds General Appearance: No Apparent Distress, WD/WN, Other (Intubated and sedated) Respiratory: Lungs Clear, Normal Breath Sounds, No Respiratory Distress, Other (Intubated and mechanically ventilated) Cardiovascular: Regular Rate, Rhythm, No Edema, No Murmur Gastrointestinal: Normal Bowel Sounds, Soft Extremity: Normal Inspection, No Pedal Edema Neurologic/Psychiatric: Other (Sedated) Skin: Normal Color, Warm/Dry Results/Procedures Lab Laboratory Tests 06/15/21 04:36 Patient resulted labs reviewed. Imaging: Reviewed Imaging Report Assessment/Plan Assessment and Plan Assess & Plan/Chief Complaint Polymicrobial UTI Klebsiella pneumoniae bacteremia MACKENZIE on CKD NSTEMI, likely type II Thrombocytopenia Elevated LFTs Continue Unasyn Stop fluids TeleICU consulted, appreciate assistance Cardiology consulted, appreciate assistance HTN Hold home meds due to hypotension Obesity Clinically significant, no acute management needs DVT ppx: Lovenox Lactic acidosis, resolved Septic shock, resolved Critical Care Critically Ill Patient Diagnosis/Problems Diagnosis/Problems (1) Septic shock Status: Resolved Resolution Date/Time: 06/14/21 @ 10:51 (2) Urinary tract infection Status: Acute Qualifiers: Urinary tract infection type: site unspecified Hematuria presence: without hematuria Qualified Codes: N39.0 - Urinary tract infection, site not specified (3) Acute kidney injury superimposed on chronic kidney disease Status: Acute (4) Non-ST elevation myocardial infarction (NSTEMI), initial care episode Status: Acute (5) Bacteremia due to Klebsiella pneumoniae Status: Acute LEANN MOLINA MD Jun 15, 2021 17:58
[2021-06-15] MEDS: ROSUVASTATIN 20 MG (CRESTOR) TABLET PO SCH (20:25)
[2021-06-15] MEDS: fentaNYL INJ 100 MCG/2 ML AMP IVP PRN (20:27)
[2021-06-15] MEDS ORDERED: DEXTROSE 50% 50 ML (IMS) SYR ONE (23:07)
[2021-06-15] MEDS ORDERED: DEXTROSE 50% 50 ML (IMS) SYR IV PRN (23:15)
[2021-06-15] MEDS ORDERED: LABETALOL HCL 20 MG/4 ML VIAL IV PRN (23:45)
[2021-06-15] MEDS ORDERED: hydrALAZINE (APESOLINE) 20 MG/ML VIAL IV PRN (23:45)
[2021-06-16] MEDS: LABETALOL HCL 20 MG/4 ML VIAL IV PRN (00:55)
[2021-06-16] MEDS: AMPICILLIN/SULBACTAM INJECTION 1.5 GM in NS (IVPB) 100 ML IV SCH ×4 (04:01→21:41)
[2021-06-16 04:25] LABS: BASOPHILS # (AUTO) 0.1 10^3/uL (0.0-0.1); BASOPHILS % (AUTO) 0 % (0-10); EOSINOPHILS % (AUTO) 0 % (0-10); HEMATOCRIT 34 % (40-54); LYMPHOCYTES # (AUTO) 1.2 10^3/uL (1.0-4.0); LYMPHOCYTES % (AUTO) 8 % (12-44); MEAN CORPUSCULAR HEMOGLOBIN 31 pg (25-34); MEAN CORPUSCULAR HGB CONC 32 g/dL (32-36); MEAN CORPUSCULAR VOLUME 95 fL (80-99); MEAN PLATELET VOLUME 11.8 fL (9.0-12.2); MONOCYTES % (AUTO) 7 % (0-12); NEUTROPHILS # (AUTO) 11.6 10^3/uL (1.8-7.8); NEUTROPHILS % (AUTO) 80 % (42-75); PLATELET COUNT 172 10^3/uL (130-400); WHITE BLOOD COUNT 14.5 10^3/uL (4.3-11.0)
[2021-06-16 04:33] LABS: ALBUMIN 2.5 GM/DL (3.2-4.5); POTASSIUM 3.9 MMOL/L (3.6-5.0)
[2021-06-16 04:34] LABS: CALCIUM 7.7 MG/DL (8.5-10.1)
[2021-06-16 04:36] LABS: TOTAL PROTEIN 5.8 GM/DL (6.4-8.2)
[2021-06-16 04:37] LABS: BILIRUBIN,TOTAL 0.6 MG/DL (0.1-1.0)
[2021-06-16 04:39] LABS: CREATININE SERUM 2.23 MG/DL (0.60-1.30); PHOSPHORUS 3.5 MG/DL (2.3-4.7)
[2021-06-16 04:42] LABS: MAGNESIUM 2.2 MG/DL (1.6-2.4)
[2021-06-16] MEDS: MAGNESIUM 1 GM/100 ML IVPB 100 ML IV SCH (05:51)
[2021-06-16] MEDS: POTASSIUM CL 10MEQ/50ML IVPB 50 ML IV SCH (05:51)
[2021-06-16] MEDS: KCL 20 MEQ TAB (K-DUR) PO SCH (05:51)
[2021-06-16] MEDS: NOREPINEPHRINE 8 MG/250 ML 250 ML IV SCH (05:51)
[2021-06-16] MEDS: PANTOPRAZOLE 40 MG (PROTONIX) VIAL IV SCH (08:15)
[2021-06-16] MEDS: ENOXAPARIN 80 MG/0.8 ML (LOVENOX) SYR SC SCH ×2 (08:15→21:41)
[2021-06-16] MEDS: ASPIRIN 81 MG CHEW (CHILDREN'S ASA) PO SCH (08:15)
--- NOTE | 2021-06-16 08:53 | Diagnostic Imaging Report ---
INDICATION: Hypoxia. Compared 06/15/2021 FINDINGS: Right IJ catheter at the lower SVC. The heart is upper limits of size. There is increased central vascular congestion. There is progressive right greater than left perihilar mixed interstitial and airspace opacity as well as increased right greater than left pleural effusions. The pattern suggests worsened failure or hypervolemia. There is no pneumothorax. IMPRESSION: Interval extubation with increased congestion, edema and pleural fluid. Dictated by: Dictated on workstation # [id number]
--- NOTE | 2021-06-16 09:58 | Progress Note - Hospitalist ---
Subjective HPI/CC On Admission Date Seen by Provider: Jun 16, 2021 Time Seen by Provider: 06:40 Pt is an 80yoCM witha PMH of prostate and bladder cancer, HTN, HLD, and dementia who presented to the ER due to weakness and altered mental status. He is unable to provide me any history. He has two daughters at the bedside who relay all history except for what is obtained from the chart. He is normally ambulatory and lives in an independent living ([facility] in [place]) who has not felt well for the past couple of days and was worse yesterday. Daughter reports that he would not get out of bed so they recommended that their mom call the facilitys' nurse. When the nurse arrived they called EMS. He was found to be in septic shock from a UTI and admitted to the ICU. Overnight he has continued to worsen and was quite agitated requiring precedex. He then became hypotensive and required central line placement for pressors. Subjective/Events-last exam He has been extubated. He denies any complaints at this time. He denies pain. He is not feeling short of breath. He is not feeling nauseous. Objective Exam Vital Signs Vital Signs Date Time Temp Pulse Resp B/P (MAP) Pulse Ox O2 Delivery O2 Flow Rate FiO2 06/16/21 09:00 89 25 165/80 (108) 94 High Flow N/C 7.00 06/16/21 07:59 35.9 06/15/21 11:03 50 Capillary Refill : Less Than 3 Seconds General Appearance: No Apparent Distress, Obese Neck: Normal Inspection, Supple Respiratory: No Respiratory Distress, Crackles Cardiovascular: Regular Rate, Rhythm, No Murmur Gastrointestinal: Normal Bowel Sounds, Non Tender, Soft Extremity: Normal Inspection, Non Tender, Pedal Edema Neurologic/Psychiatric: Alert, Normal Mood/Affect, Disoriented Skin: Normal Color, Warm/Dry Results/Procedures Lab Laboratory Tests 06/16/21 04:06 Patient resulted labs reviewed. Imaging: Reviewed Imaging Report Assessment/Plan Assessment and Plan Assess & Plan/Chief Complaint Polymicrobial UTI Klebsiella pneumoniae bacteremia MACKENZIE on CKD Acute respiratory failure with hypoxia Repeat blood cultures negative Continue Unasyn Fluids stopped Give Lasix TeleICU consulted, appreciate assistance NSTEMI, likely type II Presumed to be secondary to severe infection Planning for conservative medical management Cardiology consulted, appreciate assistance HTN Hold home meds due to hypotension Obesity Clinically significant, no acute management needs DVT ppx: Lovenox Lactic acidosis, resolved Septic shock, resolved Thrombocytopenia, resolved Elevated LFTs, improved Endotracheally intubated, resolved Critical Care Critically Ill Patient Diagnosis/Problems Diagnosis/Problems (1) Septic shock Status: Resolved Resolution Date/Time: 06/14/21 @ 10:51 (2) Urinary tract infection Status: Acute Qualifiers: Urinary tract infection type: site unspecified Hematuria presence: without hematuria Qualified Codes: N39.0 - Urinary tract infection, site not specified (3) Acute kidney injury superimposed on chronic kidney disease Status: Acute (4) Non-ST elevation myocardial infarction (NSTEMI), initial care episode Status: Acute (5) Bacteremia due to Klebsiella pneumoniae Status: Acute (6) Acute respiratory failure with hypoxia Status: Acute LEANN MOLINA MD Jun 16, 2021 09:58
[2021-06-16] MEDS ORDERED: FUROSEMIDE 40 MG/4 ML INJ (LASIX) IVP ONE (10:00)
--- NOTE | 2021-06-16 10:47 | Tele-ICU Progress Note ---
Subjective Date Seen by a Provider: Jun 16, 2021 Time Seen by a Provider: 09:45 Subjective/Events-last exam This is a virtual visit which was conducted using real time audio/video. Thank you for asking us to see this patient for sepsis, respiratory insufficiency and distress. HPC: Recent events: Extubated 06/15 PM now on 7 l High Flow O2. PMH: HL SH: neg smoking history FH: Non-contributory ROS: limited by patient's clinical condition, but reasonably comfortable PE: VSS HR 76 nsr BP 161/79 RR 18 O2 sat on 7 L O2. HEENT: No obvious masses, adenopathy or JVD. Chest: clear to auscultation. CV: RRR S1 S2 No murmur or added sounds. Abd: Non-tender. Bowel sounds . : Unremarkable. Stanton . FOLLOW UP CLERK/psychiatric: Alert and oriented, grossly intact. No obvious focal findings. Extremities: No edema. Capillary refill < 3 seconds. Skin: unremarkable. Results: Elevated WCC. A/P: Respiratory insufficiency/distress: Cont O2 Available chart/ vitals / labs / Images reviewed. Video assessment done using teleICU camera, rest of exam as per RN. Respiratory: Continue present management with NC 7L O2 Monitor for increasing oxygenation needs and/or need for intubation.. Critical Care: critically ill patient. Discussed with CARLA Hartley. Asked RN to reach out to eICU if any questions or concerns later. Time spent with patient/coordination of care with other health professionals (mins): 15 Sepsis Event Evaluation Sepsis Stage: Sepsis Height, Weight, BMI Height: 5'9.00" Weight: 182lbs. oz. 82.604010iw; 27.81 BMI Method: Focused Exam Sepsis Stage: Ruled Out Peripheral Pulses: 1+ Dorsalis Pedis (R), 1+ Left Dors-Pedis (L) Exam Exam Patient acknowledged, consented, and participated in this virtual visit which was conducted using real time audio/video Vital Signs Date Time Temp Pulse Resp B/P (MAP) Pulse Ox O2 Delivery O2 Flow Rate FiO2 06/16/21 09:00 89 25 165/80 (108) 94 High Flow N/C 7.00 06/16/21 08:30 High Flow N/C 7.00 06/16/21 08:00 86 31 171/89 (116) 94 High Flow N/C 7.00 06/16/21 07:59 35.9 06/16/21 07:00 87 06/16/21 07:00 86 21 166/86 (112) 94 High Flow N/C 7.00 06/16/21 06:00 87 32 150/79 (102) 94 High Flow N/C 7.00 06/16/21 05:49 High Flow N/C 7.00 06/16/21 05:00 90 22 152/82 (105) 95 High Flow N/C 8.00 06/16/21 04:01 High Flow N/C 8.00 06/16/21 04:00 90 30 157/81 (106) 95 High Flow N/C 9.00 06/16/21 04:00 High Flow N/C 9.00 06/16/21 03:43 37.3 High Flow N/C 9.00 06/16/21 03:00 92 39 146/87 (106) 94 High Flow N/C 10.00 06/16/21 02:00 92 36 155/88 (110) 96 High Flow N/C 10.00 06/16/21 01:00 89 06/16/21 01:00 89 14 156/84 (108) 96 High Flow N/C 10.00 06/16/21 00:00 High Flow N/C 10.00 06/16/21 00:00 120 39 182/102 (128) 94 High Flow N/C 10.00 06/15/21 23:30 38.6 High Flow N/C 10.00 06/15/21 23:00 121 49 202/101 (134) 94 High Flow N/C 10.00 06/15/21 22:00 125 10 194/98 (130) 82 High Flow N/C 10.00 06/15/21 21:00 112 14 194/98 (130) 96 High Flow N/C 10.00 06/15/21 20:00 High Flow N/C 10.00 06/15/21 20:00 101 21 213/108 (143) 94 High Flow N/C 10.00 06/15/21 19:40 37.5 06/15/21 19:00 96 06/15/21 19:00 High Flow N/C 10.00 06/15/21 19:00 95 19 217/104 (141) 94 High Flow N/C 10.00 06/15/21 18:00 84 183/94 (123) 91 High Flow N/C 8.00 06/15/21 17:00 82 184/91 (122) 100 High Flow N/C 8.00 06/15/21 16:00 80 181/95 (123) 100 High Flow N/C 8.00 06/15/21 15:54 37.1 06/15/21 15:34 High Flow N/C 8.00 06/15/21 15:00 75 40 167/81 (111) 96 High Flow N/C 8.00 06/15/21 14:34 High Flow N/C 8.00 06/15/21 14:00 75 36 156/85 (112) 85 Mechanical Ventilator 50.00 06/15/21 13:00 54 06/15/21 13:00 66 126/73 (94) Mechanical Ventilator 50.00 06/15/21 12:57 36.8 06/15/21 12:00 56 124/71 (88) 88 Mechanical Ventilator 50.00 06/15/21 11:03 Mechanical Ventilator 50 06/15/21 11:00 54 124/69 (87) 91 Mechanical Ventilator 50.00 I & O 06/16/21 07:00 Intake Total 1700 ml Output Total 2075 ml Balance -375 ml Height & Weight Height: 5'9.00" Weight: 182lbs. oz. 82.025076xo; 27.81 BMI Method: General Appearance: No Apparent Distress, Obese HEENT: PERRL/EOMI, Moist Mucous Membranes Neck: Normal Inspection, Supple Respiratory: No Respiratory Distress, Crackles Cardiovascular: Regular Rate, Rhythm, No Murmur Capillary Refill: Less Than 3 Seconds Gastrointestinal: normal bowel sounds, non tender, soft, no organomegaly, other (urostomy, scrotal edema) Extremity: Normal Inspection, Non Tender, Pedal Edema Neurologic/Psychiatric: Alert, Normal Mood/Affect, Disoriented Skin: Normal Color, Warm/Dry Results Lab Laboratory Tests 06/15/21 04:36 06/16/21 04:06 Assessment/Plan Assessment/Plan See free text. Critical Care: Critically Ill Patient Time spent on discussion(mins): 0 Diagnosis/Problems Diagnosis/Problems (1) Acute respiratory failure with hypoxia Status: Acute COLEEN BRANCH MD 24, 2021 10:47
--- NOTE | 2021-06-16 12:15 | Progress Note - Cardiology ---
Cardiology SOAP Progress Note Subjective: No cp or palp or syncope or shortness of breath Does not report n/v/d Objective: I&O/Vital Signs 06/16/21 06/16/21 06/16/21 06/16/21 01:00 01:00 02:00 03:00 Pulse 89 89 92 92 Resp 14 36 39 B/P (MAP) 156/84 (108) 155/88 (110) 146/87 (106) Pulse Ox 96 96 94 O2 Delivery High Flow N/C High Flow N/C High Flow N/C O2 Flow Rate 10.00 10.00 10.00 06/16/21 06/16/21 06/16/21 06/16/21 03:43 04:00 04:00 04:01 Temp 37.3 Pulse 90 Resp 30 B/P (MAP) 157/81 (106) Pulse Ox 95 O2 Delivery High Flow N/C High Flow N/C High Flow N/C High Flow N/C O2 Flow Rate 9.00 9.00 9.00 8.00 06/16/21 06/16/21 06/16/21 06/16/21 05:00 05:49 06:00 07:00 Pulse 90 87 86 Resp 22 32 21 B/P (MAP) 152/82 (105) 150/79 (102) 166/86 (112) Pulse Ox 95 94 94 O2 Delivery High Flow N/C High Flow N/C High Flow N/C High Flow N/C O2 Flow Rate 8.00 7.00 7.00 7.00 06/16/21 06/16/21 06/16/21 06/16/21 07:00 07:59 08:00 08:30 Temp 35.9 Pulse 87 86 Resp 31 B/P (MAP) 171/89 (116) Pulse Ox 94 O2 Delivery High Flow N/C High Flow N/C O2 Flow Rate 7.00 7.00 06/16/21 06/16/21 06/16/21 06/16/21 09:00 10:00 11:00 11:56 Temp 36.6 Pulse 89 79 82 Resp 25 31 24 B/P (MAP) 165/80 (108) 180/91 (120) 181/96 (124) Pulse Ox 94 90 97 O2 Delivery High Flow N/C High Flow N/C High Flow N/C O2 Flow Rate 7.00 7.00 7.00 06/16/21 00:00 Intake Total 1600 ml Output Total 1025 ml Balance 575 ml Weight (Pounds): 182 Weight (Calculated Kilograms): 82.970721 Constitutional: No AAO x 3; well-developed, well-nourished, other (Intubated, sedated, and on mech vent) Respiratory: No accessory muscle use; other (diminished bases bilat. ) Cardiovascular: regular rate-rhythm; No JVD; S1 and S2, systolic murmur (soft FATIMAH at card base) Gastrointestional: No tender; soft; No rebound; audible bowel sounds Genital/Rectal: other (RLQ urostomy) Extremities: no lower extremity edema bilateral Neurologic/Psychiatric: No oriented x 3; other (moves all limbs equally) Skin: No rash on exposed areas, No ulcerations on exposed areas Results/Procedures: Labs Laboratory Tests 06/15/21 12:13: Glucometer 135H 06/15/21 13:23: Blood Gas Puncture Site LR, Blood Gas Patient Temperature 37.7, Arterial Blood pH 7.48H, Arterial Blood Partial Pressure CO2 36, Arterial Blood Partial Pressure O2 78L, Arterial Blood HCO3 26, Arterial Blood Total CO2 26.9, Arterial Blood Oxygen Saturation 95, Arterial Blood Base Excess 2.6H, Eddi Test YES-POS, Blood Gas Ventilator Setting YES, Blood Gas Inspired Oxygen 50% 06/15/21 17:43: Glucometer 91 06/15/21 22:32: Glucometer 65L 06/16/21 00:51: Glucometer 84 06/16/21 04:06: White Blood Count 14.5H, Red Blood Count 3.57L, Hemoglobin 11.0L, Hematocrit 34L , Mean Corpuscular Volume 95, Mean Corpuscular Hemoglobin 31, Mean Corpuscular Hemoglobin Concent 32, Red Cell Distribution Width 14.3, Platelet Count 172, Mean Platelet Volume 11.8, Immature Granulocyte % (Auto) 4, Neutrophils (%) (Auto) 80H, Lymphocytes (%) (Auto) 8L, Monocytes (%) (Auto) 7, Eosinophils (%) (Auto) 0, Basophils (%) (Auto) 0, Neutrophils # (Auto) 11.6H, Lymphocytes # (Auto) 1.2, Monocytes # (Auto) 1.0, Eosinophils # (Auto) 0.0, Basophils # (Auto) 0.1, Immature Granulocyte # (Auto) 0.6H, Sodium Level 146H, Potassium Level 3.9, Chloride Level 112H, Carbon Dioxide Level 25, Anion Gap 9, Blood Urea Nitrogen 43H, Creatinine 2.23H, Estimat Glomerular Filtration Rate 28, BUN/Creatinine Ratio 19, Glucose Level 102, Calcium Level 7.7L, Corrected Calcium 8.9, Phosphorus Level 3.5, Magnesium Level 2.2, Total Bilirubin 0.6, Aspartate Amino Transf (AST/SGOT) 88H, Alanine Aminotransferase (ALT/SGPT) 83H, Alkaline Phosphatase 348H, Total Protein 5.8L, Albumin 2.5L 06/16/21 04:56: B-Type Natriuretic Peptide 820.3H, Procalcitonin 30.01H 06/16/21 11:11: Glucometer 80 Microbiology 06/12/21 Blood Culture - Preliminary, Resulted No growth 06/09/21 MRSA Screen - Final, Complete MRSA not isolated 06/09/21 Urine Culture - Final, Complete Escherichia coli Klebsiella pneumoniae Enterococcus faecalis Aerococcus urinae Laboratory Tests 06/15/21 04:36 06/16/21 04:06 A/P: Assessment: Sepsis d/t UTI, management per medical/eICU services Mild troponin elevation likely Type 2 CO secondary to sepsis Echocardiogram from 06/10/[address] Arteaga showed LVEF 50%, grade 1 diastolic dysfunction, mild aortic root dilation (4 cm), mild AoV sclerosis, PASP 27 mmHg Essential hypertension, somewhat low BP at this time which prevents the addition of BB HLD treated with statins Acute kidney injury superimposed on chronic kidney disease, acute component likely secondary to sepsis Urostomy: - history of CA of the prostate that was treated with a robotic-assisted laparoscopic prostatectomy at by Dr. 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 Simeon. (per Dr. Harden's note) Dementia Plan: Complex management due to multiple comorbidities Management of sepsis per medical/eICU services Monitor lab closely Replace electrolytes as indicated I discussed his CV issues with his daughter who was by his bedside today MEDHAT DOTSON MD FACP [facility] Jun 16, 2021 12:15
[2021-06-16] MEDS ORDERED: ONDANSETRON 4 MG/2 ML (SDV) Z0FRAN IV PRN (17:15)
[2021-06-16] MEDS ORDERED: polyethylene glycoL POWDER 17 GM (MIRALAX) PACK PO PRN (17:15)
[2021-06-16] MEDS ORDERED: ONDANSETRON 4 MG (ZOFRAN) ORAL DISSOLVE TAB PO PRN (17:15)
[2021-06-16] MEDS ORDERED: ANTACID SUSP 30 ML UDC (MYLANTA) PO PRN (17:15)
[2021-06-16] MEDS ORDERED: BISACODYL 10 MG SUPP (DULCOLAX) PR PRN (17:15)
[2021-06-16] MEDS ORDERED: amLODIPine 10 MG (NORVASC) TAB PO ONE (17:15)
[2021-06-16] MEDS ORDERED: MELATONIN 3 MG TABLET PO PRN (17:15)
[2021-06-16] MEDS ORDERED: amLODIPine 10 MG (NORVASC) TAB ONE (18:19)
[2021-06-16] MEDS: guaiFENesin (MUCINEX) 600 MG TAB PO SCH (20:49)
[2021-06-16] MEDS: SENNOSIDES 8.6 MG (SENOKOT) TAB PO SCH (20:49)
[2021-06-16] MEDS: ROSUVASTATIN 20 MG (CRESTOR) TABLET PO SCH (20:49)
[2021-06-16] MEDS: DOCUSATE SODIUM 100 MG (COLACE) CAP PO SCH (20:50)
[2021-06-17] MEDS: AMPICILLIN/SULBACTAM INJECTION 1.5 GM in NS (IVPB) 100 ML IV SCH ×4 (04:22→22:49)
[2021-06-17] MEDS: hydrALAZINE (APESOLINE) 20 MG/ML VIAL IV PRN (04:24)
[2021-06-17 04:44] LABS: BASOPHILS % (AUTO) 0 % (0-10); EOSINOPHILS # (AUTO) 0.2 10^3/uL (0.0-0.3); EOSINOPHILS % (AUTO) 2 % (0-10); HEMATOCRIT 36 % (40-54); HEMOGLOBIN 11.5 g/dL (13.3-17.7); LYMPHOCYTES # (AUTO) 1.3 10^3/uL (1.0-4.0); LYMPHOCYTES % (AUTO) 9 % (12-44); MEAN CORPUSCULAR HEMOGLOBIN 31 pg (25-34); MEAN CORPUSCULAR HGB CONC 32 g/dL (32-36); MEAN CORPUSCULAR VOLUME 97 fL (80-99); MEAN PLATELET VOLUME 11.6 fL (9.0-12.2); MONOCYTES # (AUTO) 0.9 10^3/uL (0.0-1.0); MONOCYTES % (AUTO) 7 % (0-12); NEUTROPHILS # (AUTO) 10.9 10^3/uL (1.8-7.8); NEUTROPHILS % (AUTO) 80 % (42-75); PLATELET COUNT 202 10^3/uL (130-400); WHITE BLOOD COUNT 13.6 10^3/uL (4.3-11.0)
[2021-06-17 04:53] LABS: ALBUMIN 2.8 GM/DL (3.2-4.5); POTASSIUM 3.9 MMOL/L (3.6-5.0)
[2021-06-17 04:54] LABS: CALCIUM 8.1 MG/DL (8.5-10.1)
[2021-06-17 04:56] LABS: TOTAL PROTEIN 6.3 GM/DL (6.4-8.2)
[2021-06-17 04:57] LABS: BILIRUBIN,TOTAL 0.7 MG/DL (0.1-1.0)
[2021-06-17 04:59] LABS: CREATININE SERUM 2.03 MG/DL (0.60-1.30); PHOSPHORUS 2.6 MG/DL (2.3-4.7)
[2021-06-17 05:02] LABS: MAGNESIUM 2.4 MG/DL (1.6-2.4)
[2021-06-17] MEDS: POTASSIUM CL 10MEQ/50ML IVPB 50 ML IV SCH (06:44)
[2021-06-17] MEDS: KCL 20 MEQ TAB (K-DUR) PO SCH (06:45)
[2021-06-17] MEDS: MAGNESIUM 1 GM/100 ML IVPB 100 ML IV SCH (06:45)
[2021-06-17] MEDS: SENNOSIDES 8.6 MG (SENOKOT) TAB PO SCH ×2 (07:50→20:53)
[2021-06-17] MEDS: DOCUSATE SODIUM 100 MG (COLACE) CAP PO SCH ×2 (07:50→20:53)
[2021-06-17] MEDS ORDERED: D5W 1000 ML IV SOLUTION 1,000 ML IV SCH (08:30)
[2021-06-17] MEDS ORDERED: FUROSEMIDE 40 MG/4 ML INJ (LASIX) IVP ONE (08:30)
[2021-06-17] MEDS: amLODIPine 10 MG (NORVASC) TAB PO SCH (08:43)
[2021-06-17] MEDS: ASPIRIN 81 MG CHEW (CHILDREN'S ASA) PO SCH (08:43)
[2021-06-17] MEDS: PANTOPRAZOLE 40 MG (PROTONIX) TAB PO SCH (08:43)
[2021-06-17] MEDS: guaiFENesin (MUCINEX) 600 MG TAB PO SCH ×2 (08:43→20:54)
[2021-06-17] MEDS: ENOXAPARIN 80 MG/0.8 ML (LOVENOX) SYR SC SCH ×2 (08:43→22:49)
--- NOTE | 2021-06-17 09:36 | Tele-ICU Progress Note ---
Progress Note video rounds completed 80 y/o admitted with sepsis secondary to UTI Patient is s/p prostatectomy and cystectomy for bladder cancer Extubated on 06/15 Currently hemodynamically stable Pulse: 94NSR BP: 165/87 Pulse Ox 90% Labs: WBC13.6 Hgb: 11.5 Plts: 202 Na 148 K: 3.9 Cl: 113 CO2 23 BUN: 46 Creat: 2.03 MEDS: lovenox 80mg BID sulbactam/amp for sepsis PLAN: contiue tx for sepsis Focused Exam Height, Weight, BMI Height: 5'9.00" Weight: 182lbs. oz. 82.842603bz; 27.81 BMI Method: EDILIA HICKS MD Jun 17, 2021 09:35
--- NOTE | 2021-06-17 12:16 | Progress Note - Hospitalist ---
Subjective HPI/CC On Admission Date Seen by Provider: Jun 17, 2021 Time Seen by Provider: 09:05 Pt is an 80yoCM witha PMH of prostate and bladder cancer, HTN, HLD, and dementia who presented to the ER due to weakness and altered mental status. He is unable to provide me any history. He has two daughters at the bedside who relay all history except for what is obtained from the chart. He is normally ambulatory and lives in an independent living ([facility] in [place]) who has not felt well for the past couple of days and was worse yesterday. Daughter reports that he would not get out of bed so they recommended that their mom call the facilitys' nurse. When the nurse arrived they called EMS. He was found to be in septic shock from a UTI and admitted to the ICU. Overnight he has continued to worsen and was quite agitated requiring precedex. He then became hypotensive and required central line placement for pressors. Subjective/Events-last exam He is pleasantly confused. He denies any complaints or concerns. Objective Exam Vital Signs Vital Signs Date Time Temp Pulse Resp B/P (MAP) Pulse Ox O2 Delivery O2 Flow Rate FiO2 06/17/21 11:47 37.4 06/17/21 11:00 87 16 164/84 (110) 94 High Flow N/C 4.00 06/15/21 11:03 50 Capillary Refill : Less Than 3 Seconds General Appearance: No Apparent Distress, Chronically ill, Obese Respiratory: Lungs Clear, Normal Breath Sounds, No Respiratory Distress Cardiovascular: Regular Rate, Rhythm, No Murmur Gastrointestinal: Normal Bowel Sounds, Non Tender, Soft Extremity: Normal Inspection, Swelling Neurologic/Psychiatric: Alert, Disoriented, Motor Weakness Skin: Normal Color, Warm/Dry Results/Procedures Lab Laboratory Tests 06/17/21 04:25 Patient resulted labs reviewed. Imaging: Reviewed Imaging Report Assessment/Plan Assessment and Plan Assess & Plan/Chief Complaint Polymicrobial UTI Klebsiella pneumoniae bacteremia Acute respiratory failure with hypoxia Elevated d-dimer Repeat blood cultures negative Continue Unasyn Transition to Augmentin tomorrow Continue Lasix Venous dopplers negative for DVT VQ scan ordered Continue Lovenox TeleICU consulted, appreciate assistance MACKENZIE on CKD Hypernatremia Giving 1 L D5W due to hypernatremia Continue Lasix Dysphagia Swallow evaluation Liquid diet with nectar thick Debility PT/OT SW consult for assistance with placement NSTEMI, likely type II Presumed to be secondary to severe infection Planning for conservative medical management Cardiology consulted, appreciate assistance HTN Hold home meds due to hypotension Dementia Obesity Clinically significant, no acute management needs DVT ppx: Lovenox Lactic acidosis, resolved Septic shock, resolved Thrombocytopenia, resolved Elevated LFTs, improved Endotracheally intubated, resolved Critical Care Critically Ill Patient Diagnosis/Problems Diagnosis/Problems (1) Septic shock Status: Resolved Resolution Date/Time: 06/14/21 @ 10:51 (2) Urinary tract infection Status: Acute Qualifiers: Urinary tract infection type: site unspecified Hematuria presence: without hematuria Qualified Codes: N39.0 - Urinary tract infection, site not specified (3) Acute kidney injury superimposed on chronic kidney disease Status: Acute (4) Non-ST elevation myocardial infarction (NSTEMI), initial care episode Status: Acute (5) Bacteremia due to Klebsiella pneumoniae Status: Acute (6) Acute respiratory failure with hypoxia Status: Acute LEANN MOLINA MD Jun 17, 2021 12:16
[2021-06-17] MEDS: LABETALOL HCL 20 MG/4 ML VIAL IV PRN (14:08)
[2021-06-17 14:50] LABS: FIBRIN DEGRADATION PRODUCTS 1.19 UG/ML (0.00-0.49); INR 1.2 (0.8-1.4); PROTHROMBIN TIME PATIENT 15.5 SEC (12.2-14.7)
[2021-06-17] MEDS: ROSUVASTATIN 20 MG (CRESTOR) TABLET PO SCH (20:54)
[2021-06-18 03:28] LABS: BASOPHILS % (AUTO) 0 % (0-10); EOSINOPHILS # (AUTO) 0.2 10^3/uL (0.0-0.3); EOSINOPHILS % (AUTO) 1 % (0-10); HEMATOCRIT 38 % (40-54); HEMOGLOBIN 12.1 g/dL (13.3-17.7); LYMPHOCYTES # (AUTO) 1.7 10^3/uL (1.0-4.0); LYMPHOCYTES % (AUTO) 12 % (12-44); MEAN CORPUSCULAR HEMOGLOBIN 30 pg (25-34); MEAN CORPUSCULAR HGB CONC 32 g/dL (32-36); MEAN CORPUSCULAR VOLUME 95 fL (80-99); MEAN PLATELET VOLUME 11.4 fL (9.0-12.2); MONOCYTES # (AUTO) 0.9 10^3/uL (0.0-1.0); MONOCYTES % (AUTO) 6 % (0-12); NEUTROPHILS # (AUTO) 11.4 10^3/uL (1.8-7.8); NEUTROPHILS % (AUTO) 79 % (42-75); PLATELET COUNT 274 10^3/uL (130-400); WHITE BLOOD COUNT 14.4 10^3/uL (4.3-11.0)
[2021-06-18 03:44] LABS: ALBUMIN 3.1 GM/DL (3.2-4.5); POTASSIUM 3.5 MMOL/L (3.6-5.0)
[2021-06-18 03:46] LABS: CALCIUM 8.4 MG/DL (8.5-10.1)
[2021-06-18 03:47] LABS: TOTAL PROTEIN 6.8 GM/DL (6.4-8.2)
[2021-06-18 03:49] LABS: BILIRUBIN,TOTAL 0.7 MG/DL (0.1-1.0)
[2021-06-18 03:50] LABS: PHOSPHORUS 2.5 MG/DL (2.3-4.7)
[2021-06-18 03:53] LABS: MAGNESIUM 2.4 MG/DL (1.6-2.4)
[2021-06-18] MEDS: AMPICILLIN/SULBACTAM INJECTION 1.5 GM in NS (IVPB) 100 ML IV SCH (04:30)
[2021-06-18] MEDS: POTASSIUM CL 10MEQ/50ML IVPB 50 ML IV SCH (05:29)
[2021-06-18] MEDS: MAGNESIUM 1 GM/100 ML IVPB 100 ML IV SCH (05:29)
[2021-06-18] MEDS: KCL 20 MEQ TAB (K-DUR) PO SCH (05:29)
[2021-06-18] MEDS: hydrALAZINE (APESOLINE) 20 MG/ML VIAL IV PRN (05:36)
[2021-06-18 06:12] VITALS: BP 113/57
[2021-06-18] MEDS ORDERED: PROPOFOL DRIP (ICU) 100 ML IV ONE (06:15)
[2021-06-18] MEDS: PROPOFOL DRIP (ICU) 100 ML IV SCH ×2 (06:20→09:45)
--- NOTE | 2021-06-18 06:58 | Diagnostic Imaging Report ---
CHEST 1 VIEW, AP/PA ONLY Indication: Intubation Comparison: 06/16/2021 Findings: The ET tube has tip approximately 5.5 cm above the selene. Enteric tube has sidehole and tip in the proximal stomach. No pulmonary consolidation. Potential trace right pleural effusion. No pneumothorax. Stable cardiac silhouette. Impression: 1. Well-positioned ETT and enteric tubes. 2. Potential trace right pleural effusion. Dictated by: Dictated on workstation # [id number]
--- NOTE | 2021-06-18 07:16 | Inpatient Code Blue ---
General Chief Complaint: General Problems/Pain Stated Complaint: UTI SEPTIC SHOCK DELIRIUM Nursing Triage Note: ARRIVED VIA EMS FROM HOME WITH GENERALIZED WEKANKSS, FEVER, AND NOT FEELING WELL. Source: RN/MD Exam Limitations: clinical condition History of Present Illness Date Seen by Provider: Jun 18, 2021 Time Seen by Provider: 06:00 Initial Comments Called emergently to the ICU for CODE BLUE in progress. On arrival to ICU room 5, CPR in progress on the patient. Apparently he had been doing okay overnight but had been hypertensive. Hydralazine 10 mg IV was given about 10 minutes prior to this arrest. He has been getting that without difficulty previously. Apparently he was admitted for urosepsis and was intubated. He has multiple sores in his mouth and this is not new. He was extubated a few days ago and there has been concerns about pulmonary embolism due to elevated D-dimer. O2 sats have been okay until this point. Prior to my arrival to room, patient had received CPR as well as epinephrine 1 mg IV. Initial pulse check notes pulse. Apparently he had bradycardic PEA event earlier and no shocks were advised were given. Timing/Duration: just prior to arrival Allergies and Home Medications Allergies Coded Allergies: No Known Drug Allergies (Unverified , 12/16/10) Home Medications Aspirin 81 Mg Tablet.dr, 81 MG PO HS, (Reported) Last Action: Reviewed Atorvastatin Calcium 10 Mg Tablet, 10 MG PO HS, (Reported) Last Action: Reviewed Cholecalciferol (Vitamin D3) 25 Mcg Tablet, 25 MCG PO HS, (Reported) Last Action: Reviewed Donepezil HCl 10 Mg Tablet, 10 MG PO HS, (Reported) Last Action: Reviewed Memantine HCl 10 Mg Tablet, 10 MG PO BID, (Reported) Last Action: Reviewed Patient Home Medication List Home Medication List Reviewed: Yes Physical Exam Vital Signs Vital Signs - First Documented 06/12/21 06/12/21 06/12/21 00:00 02:31 02:46 Temp 36.3 Pulse 80 Resp 18 B/P (MAP) 122/61 (81) Pulse Ox 94 O2 Delivery Mechanical Ventilator O2 Flow Rate 35.00 FiO2 35 Capillary Refill : Less Than 3 Seconds Height, Weight, BMI Height: 5'9.00" Weight: 182lbs. oz. [id number]; 27.81 BMI Method: General Appearance: other (CPR in progress on my arrival) Ears, Nose, Throat: other (Multiple sores within the mouth and blood noted in the nares and in the mouth) Respiratory: other (Initially no respiratory effort and minimal effort after return of spontaneous circulation. Patient ventilated via bag valve mask and vent ultimately. Breath sounds clear with bagging.) Cardiovascular: regular rate, rhythm, other (Strong pulse after return of slight regulation.) Skin: normal color, warm/dry Procedures/Interventions Date of ETT Placement: Jun 18, 2021 Time of ETT Placement: 611 Intubation Method: orotracheal Tube Size: 8.00 Medications: Succinylcholine, Versed Positive End Tide CO2: Yes Breath Sounds after Intubation: bilateral-equal Intubation Complications: no complications Post Intubation Xray: Yes ET tube in good position Patient intubated via glide scope x1 attempt by RT under my direct supervision with tube parameters as above. 25 cm at the gumline. Bilateral breath sounds noted without epigastric sounds. Fogging tube noted and end-tidal CO2 detector did have color change. Post-intubation chest x-ray does show tube in good position. Progress/Results/Core Measures Results/Orders Lab Results Laboratory Tests Test 06/09/21 17:20 06/09/21 18:20 06/09/21 18:45 06/09/21 19:31 Range/Units White Blood Count 15.9 H 4.3-11.0 10^3/uL Red Blood Count 4.60 4.30-5.52 10^6/uL Hemoglobin 14.2 13.3-17.7 g/dL Hematocrit 44 40-54 % Mean Corpuscular Volume 95 80-99 fL Mean Corpuscular Hemoglobin 31 25-34 pg Mean Corpuscular Hemoglobin Concent 33 32-36 g/dL Red Cell Distribution Width 12.8 10.0-14.5 % Platelet Count 173 130-400 10^3/uL Mean Platelet Volume 10.9 9.0-12.2 fL Immature Granulocyte % (Auto) 1 % Neutrophils (%) (Auto) 95 H 42-75 % Lymphocytes (%) (Auto) 2 L 12-44 % Monocytes (%) (Auto) 1 0-12 % Eosinophils (%) (Auto) 2 0-10 % Basophils (%) (Auto) 0 0-10 % Neutrophils # (Auto) 15.0 H 1.8-7.8 10^3/uL Lymphocytes # (Auto) 0.3 L 1.0-4.0 10^3/uL Monocytes # (Auto) 0.1 0.0-1.0 10^3/uL Eosinophils # (Auto) 0.2 0.0-0.3 10^3/uL Basophils # (Auto) 0.1 0.0-0.1 10^3/uL Immature Granulocyte # (Auto) 0.1 0.0-0.1 10^3/uL Neutrophils % (Manual) 88 % Lymphocytes % (Manual) 1 % Monocytes % (Manual) 1 % Eosinophils % (Manual) 0 % Basophils % (Manual) 0 % Band Neutrophils 10 % Blood Morphology Comment NORMAL Urine Color YELLOW Urine Clarity CLEAR Urine pH 5.5 5-9 Urine Specific [place] 1.020 1.016-1.022 Urine Protein 1+ H NEGATIVE Urine Glucose (UA) NEGATIVE NEGATIVE Urine Ketones NEGATIVE NEGATIVE Urine Nitrite NEGATIVE NEGATIVE Urine Bilirubin NEGATIVE NEGATIVE Urine Urobilinogen 0.2 < = 1.0 MG/DL Urine Leukocyte Esterase 1+ H NEGATIVE Urine RBC (Auto) TRACE-I NEGATIVE Urine RBC 0-2 /HPF Urine WBC 5-10 H /HPF Urine Squamous Epithelial Cells NONE /HPF Urine Crystals NONE /LPF Urine Bacteria LARGE H /HPF Urine Casts NONE /LPF Urine Mucus NEGATIVE /LPF Urine Culture Indicated CULTURE PENDING Sodium Level 144 135-145 MMOL/L Potassium Level 3.5 L 3.6-5.0 MMOL/L Chloride Level 110 H 98-107 MMOL/L Carbon Dioxide Level 14 L 21-32 MMOL/L Anion Gap 20 H 5-14 MMOL/L Blood Urea Nitrogen 27 H 7-18 MG/DL Creatinine 2.34 H 0.60-1.30 MG/DL Estimat Glomerular Filtration Rate 27 BUN/Creatinine Ratio 12 Glucose Level 83 70-105 MG/DL Lactic Acid Level 6.92 *H 8.77 *H 0.50-2.00 MMOL/L Calcium Level 8.9 8.5-10.1 MG/DL Corrected Calcium 9.2 8.5-10.1 MG/DL Total Bilirubin 0.4 0.1-1.0 MG/DL Aspartate Amino Transf (AST/SGOT) 23 5-34 U/L Alanine Aminotransferase (ALT/SGPT) 13 0-55 U/L Alkaline Phosphatase 109 40-136 U/L Total Protein 6.3 L 6.4-8.2 GM/DL Albumin 3.6 3.2-4.5 GM/DL Influenza Type A (RT-PCR) Not Detected Not Detecte Influenza Type B (RT-PCR) Not Detected Not Detecte SARS-CoV-2 RNA (RT-PCR) Not Detected Not Detecte Lab Scanned Report Referred Lab Report [id number] Prothrombin Time 17.1 H 12.2-14.7 SEC INR Comment 1.4 0.8-1.4 Activated Partial Thromboplast Time 39 H 24-35 SEC Test 06/09/21 22:05 06/09/21 23:50 06/10/21 02:15 06/10/21 04:05 Range/Units Lactic Acid Level 8.98 *H 8.89 *H 6.83 *H 0.50-2.00 MMOL/L White Blood Count 24.2 H 4.3-11.0 10^3/uL Red Blood Count 4.15 L 4.30-5.52 10^6/uL Hemoglobin 12.8 L 13.3-17.7 g/dL Hematocrit 40 40-54 % Mean Corpuscular Volume 95 80-99 fL Mean Corpuscular Hemoglobin 31 25-34 pg Mean Corpuscular Hemoglobin Concent 32 32-36 g/dL Red Cell Distribution Width 13.2 10.0-14.5 % Platelet Count 139 130-400 10^3/uL Mean Platelet Volume 10.9 9.0-12.2 fL Immature Granulocyte % (Auto) 3 % Neutrophils (%) (Auto) 91 H 42-75 % Lymphocytes (%) (Auto) 2 L 12-44 % Monocytes (%) (Auto) 4 0-12 % Eosinophils (%) (Auto) 0 0-10 % Basophils (%) (Auto) 0 0-10 % Neutrophils # (Auto) 22.0 H 1.8-7.8 10^3/uL Lymphocytes # (Auto) 0.4 L 1.0-4.0 10^3/uL Monocytes # (Auto) 1.0 0.0-1.0 10^3/uL Eosinophils # (Auto) 0.0 0.0-0.3 10^3/uL Basophils # (Auto) 0.0 0.0-0.1 10^3/uL Immature Granulocyte # (Auto) 0.7 H 0.0-0.1 10^3/uL Sodium Level 145 135-145 MMOL/L Potassium Level 3.8 3.6-5.0 MMOL/L Chloride Level 114 H 98-107 MMOL/L Carbon Dioxide Level 15 L 21-32 MMOL/L Anion Gap 16 H 5-14 MMOL/L Blood Urea Nitrogen 31 H 7-18 MG/DL Creatinine 2.25 H 0.60-1.30 MG/DL Estimat Glomerular Filtration Rate 28 BUN/Creatinine Ratio 14 Glucose Level 78 70-105 MG/DL Calcium Level 7.6 L 8.5-10.1 MG/DL Corrected Calcium 8.3 L 8.5-10.1 MG/DL Phosphorus Level 1.8 L 2.3-4.7 MG/DL Magnesium Level 1.3 L 1.6-2.4 MG/DL Total Bilirubin 0.3 0.1-1.0 MG/DL Aspartate Amino Transf (AST/SGOT) 35 H 5-34 U/L Alanine Aminotransferase (ALT/SGPT) 17 0-55 U/L Alkaline Phosphatase 76 40-136 U/L Total Protein 5.4 L 6.4-8.2 GM/DL Albumin 3.1 L 3.2-4.5 GM/DL Procalcitonin 436.54 H <0.10 NG/ML Blood Gas Puncture Site L RAD Blood Gas Patient Temperature 36.0 Arterial Blood pH 7.26 *L 7.37-7.43 Arterial Blood Partial Pressure CO2 28 L 35-45 MMHG Arterial Blood Partial Pressure O2 74 L 79-93 MMHG Arterial Blood HCO3 12 *L 23-27 MMOL/L Arterial Blood Total CO2 13.3 L 21.0-31.0 MMOL/L Arterial Blood Oxygen Saturation 94 94-100 % Arterial Blood Base Excess -13.5 L -2.5-2.5 MMOL/L Eddi Test YES-POS Blood Gas Ventilator Setting NO Blood Gas Inspired Oxygen 3 L NC Test 06/10/21 04:25 06/10/21 06:25 06/10/21 09:00 06/10/21 11:03 Range/Units Lactic Acid Level 8.50 *H 5.82 *H 3.55 *H 3.45 *H 0.50-2.00 MMOL/L Troponin I 0.879 *H <0.028 NG/ML B-Type Natriuretic Peptide 1450.8 H <100.0 PG/ML D-Dimer > 20.00 *H 0.00-0.49 UG/ML Test 06/10/21 11:04 06/10/21 17:54 06/10/21 20:50 06/10/21 21:35 Range/Units Troponin I 0.826 *H <0.028 NG/ML Triglycerides Level 171 H 170 H <150 MG/DL Cholesterol Level 108 < 200 MG/DL LDL Cholesterol Direct 47 1-129 MG/DL VLDL Cholesterol 34 5-40 MG/DL HDL Cholesterol 22 L 40-60 MG/DL Blood Gas Puncture Site R RADIAL R RAD Blood Gas Patient Temperature 36.6 37 Arterial Blood pH 7.41 7.19 *L 7.37-7.43 Arterial Blood Partial Pressure CO2 31 L 38 35-45 MMHG Arterial Blood Partial Pressure O2 149 H 65 L 79-93 MMHG Arterial Blood HCO3 19 L 14 *L 23-27 MMOL/L Arterial Blood Total CO2 20.3 L 15.0 L 21.0-31.0 MMOL/L Arterial Blood Oxygen Saturation 99 85 L 94-100 % Arterial Blood Base Excess -4.5 L -12.8 L -2.5-2.5 MMOL/L Eddi Test YES-POS YES-POS Blood Gas Ventilator Setting NO NO Blood Gas Inspired Oxygen 2L 2L O2 White Blood Count 19.9 H 4.3-11.0 10^3/uL Red Blood Count 3.71 L 4.30-5.52 10^6/uL Hemoglobin 11.5 L 13.3-17.7 g/dL Hematocrit 35 L 40-54 % Mean Corpuscular Volume 94 80-99 fL Mean Corpuscular Hemoglobin 31 25-34 pg Mean Corpuscular Hemoglobin Concent 33 32-36 g/dL Red Cell Distribution Width 13.3 10.0-14.5 % Platelet Count 115 L 130-400 10^3/uL Mean Platelet Volume 10.9 9.0-12.2 fL Percent Immature Platelet Fraction 5.7 0.0-7.6 % Sodium Level 146 H 135-145 MMOL/L Potassium Level 4.1 3.6-5.0 MMOL/L Chloride Level 112 H 98-107 MMOL/L Carbon Dioxide Level 17 L 21-32 MMOL/L Anion Gap 17 H 5-14 MMOL/L Blood Urea Nitrogen 40 H 7-18 MG/DL Creatinine 2.13 H 0.60-1.30 MG/DL Estimat Glomerular Filtration Rate 30 BUN/Creatinine Ratio 19 Glucose Level 105 70-105 MG/DL Calcium Level 7.1 L 8.5-10.1 MG/DL Corrected Calcium 7.8 L 8.5-10.1 MG/DL Total Bilirubin 0.5 0.1-1.0 MG/DL Aspartate Amino Transf (AST/SGOT) 72 H 5-34 U/L Alanine Aminotransferase (ALT/SGPT) 43 0-55 U/L Alkaline Phosphatase 77 40-136 U/L Total Protein 5.5 L 6.4-8.2 GM/DL Albumin 3.1 L 3.2-4.5 GM/DL Test 06/10/21 22:39 06/10/21 22:45 06/11/21 04:50 06/11/21 09:15 Range/Units Glucometer 107 70-110 MG/DL Blood Gas Puncture Site R RAD R RAD Blood Gas Patient Temperature 38.6 36.4 Arterial Blood pH 7.43 7.47 H 7.37-7.43 Arterial Blood Partial Pressure CO2 32 L 32 L 35-45 MMHG Arterial Blood Partial Pressure O2 72 L 118 H 79-93 MMHG Arterial Blood HCO3 21 L 24 23-27 MMOL/L Arterial Blood Total CO2 21.5 24.5 21.0-31.0 MMOL/L Arterial Blood Oxygen Saturation 95 99 94-100 % Arterial Blood Base Excess -3.1 L 0.1 -2.5-2.5 MMOL/L Eddi Test YES-POS YES-POS Blood Gas Ventilator Setting YES YES Blood Gas Inspired Oxygen 50% 40% White Blood Count 14.9 H 4.3-11.0 10^3/uL Red Blood Count 3.48 L 4.30-5.52 10^6/uL Hemoglobin 10.9 L 13.3-17.7 g/dL Hematocrit 32 L 40-54 % Mean Corpuscular Volume 93 80-99 fL Mean Corpuscular Hemoglobin 31 25-34 pg Mean Corpuscular Hemoglobin Concent 34 32-36 g/dL Red Cell Distribution Width 13.5 10.0-14.5 % Platelet Count 102 L 130-400 10^3/uL Mean Platelet Volume 11.5 9.0-12.2 fL Immature Granulocyte % (Auto) 13 % Neutrophils (%) (Auto) 75 42-75 % Lymphocytes (%) (Auto) 10 L 12-44 % Monocytes (%) (Auto) 2 0-12 % Eosinophils (%) (Auto) 0 0-10 % Basophils (%) (Auto) 0 0-10 % Neutrophils # (Auto) 11.2 H 1.8-7.8 10^3/uL Lymphocytes # (Auto) 1.4 1.0-4.0 10^3/uL Monocytes # (Auto) 0.3 0.0-1.0 10^3/uL Eosinophils # (Auto) 0.0 0.0-0.3 10^3/uL Basophils # (Auto) 0.0 0.0-0.1 10^3/uL Immature Granulocyte # (Auto) 1.9 H 0.0-0.1 10^3/uL Sodium Level 146 H 135-145 MMOL/L Potassium Level 3.6 3.6-5.0 MMOL/L Chloride Level 110 H 98-107 MMOL/L Carbon Dioxide Level 23 21-32 MMOL/L Anion Gap 13 5-14 MMOL/L Blood Urea Nitrogen 42 H 7-18 MG/DL Creatinine 2.02 H 0.60-1.30 MG/DL Estimat Glomerular Filtration Rate 32 BUN/Creatinine Ratio 21 Glucose Level 93 70-105 MG/DL Calcium Level 6.8 L 8.5-10.1 MG/DL Corrected Calcium 7.8 L 8.5-10.1 MG/DL Phosphorus Level 2.8 2.3-4.7 MG/DL Magnesium Level 2.2 1.6-2.4 MG/DL Total Bilirubin 0.5 0.1-1.0 MG/DL Aspartate Amino Transf (AST/SGOT) 117 H 5-34 U/L Alanine Aminotransferase (ALT/SGPT) 111 H 0-55 U/L Alkaline Phosphatase 70 40-136 U/L Total Protein 4.9 L 6.4-8.2 GM/DL Albumin 2.8 L 3.2-4.5 GM/DL Lactic Acid Level 2.36 *H 0.50-2.00 MMOL/L Test 06/11/21 15:54 06/11/21 17:33 06/11/21 19:15 06/11/21 20:03 Range/Units Prothrombin Time 18.8 H 12.2-14.7 SEC INR Comment 1.5 H 0.8-1.4 Activated Partial Thromboplast Time 66 H 24-35 SEC Fibrinogen 569 H 221-496 MG/DL D-Dimer 8.56 H 0.00-0.49 UG/ML Sodium Level 145 135-145 MMOL/L Potassium Level 3.4 L 3.6-5.0 MMOL/L Chloride Level 110 H 98-107 MMOL/L Carbon Dioxide Level 25 21-32 MMOL/L Anion Gap 10 5-14 MMOL/L Blood Urea Nitrogen 44 H 7-18 MG/DL Creatinine 1.94 H 0.60-1.30 MG/DL Estimat Glomerular Filtration Rate 33 BUN/Creatinine Ratio 23 Glucose Level 63 L 70-105 MG/DL Calcium Level 6.7 L 8.5-10.1 MG/DL Glucometer 58 *L 89 97 70-110 MG/DL Test 06/11/21 22:47 06/11/21 23:20 06/11/21 23:39 06/12/21 00:28 Range/Units Glucometer 65 L 60 *L 107 109 70-110 MG/DL Test 06/12/21 02:13 06/12/21 02:40 06/12/21 03:16 06/12/21 08:15 Range/Units White Blood Count 13.8 H 4.3-11.0 10^3/uL Red Blood Count 3.39 L 4.30-5.52 10^6/uL Hemoglobin 10.8 L 13.3-17.7 g/dL Hematocrit 32 L 40-54 % Mean Corpuscular Volume 93 80-99 fL Mean Corpuscular Hemoglobin 32 25-34 pg Mean Corpuscular Hemoglobin Concent 34 32-36 g/dL Red Cell Distribution Width 13.3 10.0-14.5 % Platelet Count 102 L 130-400 10^3/uL Mean Platelet Volume 12.0 9.0-12.2 fL Immature Granulocyte % (Auto) 0 % Neutrophils (%) (Auto) 89 H 42-75 % Lymphocytes (%) (Auto) 8 L 12-44 % Monocytes (%) (Auto) 2 0-12 % Eosinophils (%) (Auto) 1 0-10 % Basophils (%) (Auto) 1 0-10 % Neutrophils # (Auto) 12.2 H 1.8-7.8 10^3/uL Lymphocytes # (Auto) 1.1 1.0-4.0 10^3/uL Monocytes # (Auto) 0.2 0.0-1.0 10^3/uL Eosinophils # (Auto) 0.1 0.0-0.3 10^3/uL Basophils # (Auto) 0.1 0.0-0.1 10^3/uL Immature Granulocyte # (Auto) 0.1 0.0-0.1 10^3/uL Percent Immature Platelet Fraction 7.9 H 0.0-7.6 % Sodium Level 143 135-145 MMOL/L Potassium Level 3.3 L 3.6-5.0 MMOL/L Chloride Level 108 H 98-107 MMOL/L Carbon Dioxide Level 25 21-32 MMOL/L Anion Gap 10 5-14 MMOL/L Blood Urea Nitrogen 42 H 7-18 MG/DL Creatinine 1.80 H 0.60-1.30 MG/DL Estimat Glomerular Filtration Rate 36 BUN/Creatinine Ratio 23 Glucose Level 136 H 70-105 MG/DL Calcium Level 6.8 L 8.5-10.1 MG/DL Corrected Calcium 8.0 L 8.5-10.1 MG/DL Phosphorus Level 1.5 L 2.3-4.7 MG/DL Magnesium Level 2.3 1.6-2.4 MG/DL Total Bilirubin 0.8 0.1-1.0 MG/DL Aspartate Amino Transf (AST/SGOT) 100 H 5-34 U/L Alanine Aminotransferase (ALT/SGPT) 90 H 0-55 U/L Alkaline Phosphatase 204 H 40-136 U/L Total Protein 5.0 L 6.4-8.2 GM/DL Albumin 2.5 L 3.2-4.5 GM/DL Blood Gas Puncture Site R RAD Blood Gas Patient Temperature 36.3 Arterial Blood pH 7.51 H 7.37-7.43 Arterial Blood Partial Pressure CO2 33 L 35-45 MMHG Arterial Blood Partial Pressure O2 84 79-93 MMHG Arterial Blood HCO3 26 23-27 MMOL/L Arterial Blood Total CO2 27.0 21.0-31.0 MMOL/L Arterial Blood Oxygen Saturation 97 94-100 % Arterial Blood Base Excess 2.8 H -2.5-2.5 MMOL/L Eddi Test YES-POS Blood Gas Ventilator Setting YES Blood Gas Inspired Oxygen 35% Glucometer 95 118 H 70-110 MG/DL Test 06/12/21 11:12 06/12/21 15:46 06/12/21 19:20 06/12/21 22:40 Range/Units Glucometer 117 H 102 113 H 120 H 70-110 MG/DL Test 06/13/21 01:48 06/13/21 02:09 06/13/21 02:30 06/13/21 08:24 Range/Units Blood Gas Puncture Site R RAD Blood Gas Patient Temperature 36.7 Arterial Blood pH 7.51 H 7.37-7.43 Arterial Blood Partial Pressure CO2 37 35-45 MMHG Arterial Blood Partial Pressure O2 78 L 79-93 MMHG Arterial Blood HCO3 29 H 23-27 MMOL/L Arterial Blood Total CO2 30.2 21.0-31.0 MMOL/L Arterial Blood Oxygen Saturation 96 94-100 % Arterial Blood Base Excess 5.7 H -2.5-2.5 MMOL/L Eddi Test YES-POS Blood Gas Ventilator Setting YES Blood Gas Inspired Oxygen 60% White Blood Count 8.7 4.3-11.0 10^3/uL Red Blood Count 3.58 L 4.30-5.52 10^6/uL Hemoglobin 11.3 L 13.3-17.7 g/dL Hematocrit 34 L 40-54 % Mean Corpuscular Volume 94 80-99 fL Mean Corpuscular Hemoglobin 32 25-34 pg Mean Corpuscular Hemoglobin Concent 34 32-36 g/dL Red Cell Distribution Width 13.2 10.0-14.5 % Platelet Count 103 L 130-400 10^3/uL Mean Platelet Volume 11.6 9.0-12.2 fL Immature Granulocyte % (Auto) 2 % Neutrophils (%) (Auto) 79 H 42-75 % Lymphocytes (%) (Auto) 12 12-44 % Monocytes (%) (Auto) 4 0-12 % Eosinophils (%) (Auto) 2 0-10 % Basophils (%) (Auto) 1 0-10 % Neutrophils # (Auto) 6.9 1.8-7.8 10^3/uL Lymphocytes # (Auto) 1.1 1.0-4.0 10^3/uL Monocytes # (Auto) 0.3 0.0-1.0 10^3/uL Eosinophils # (Auto) 0.2 0.0-0.3 10^3/uL Basophils # (Auto) 0.1 0.0-0.1 10^3/uL Immature Granulocyte # (Auto) 0.2 H 0.0-0.1 10^3/uL Percent Immature Platelet Fraction 7.6 0.0-7.6 % Sodium Level 145 135-145 MMOL/L Potassium Level 3.2 L 3.6-5.0 MMOL/L Chloride Level 107 98-107 MMOL/L Carbon Dioxide Level 28 21-32 MMOL/L Anion Gap 10 5-14 MMOL/L Blood Urea Nitrogen 40 H 7-18 MG/DL Creatinine 1.77 H 0.60-1.30 MG/DL Estimat Glomerular Filtration Rate 37 BUN/Creatinine Ratio 23 Glucose Level 130 H 70-105 MG/DL Calcium Level 7.2 L 8.5-10.1 MG/DL Corrected Calcium 8.4 L 8.5-10.1 MG/DL Phosphorus Level 1.9 L 2.3-4.7 MG/DL Magnesium Level 2.1 1.6-2.4 MG/DL Total Bilirubin 1.1 H 0.1-1.0 MG/DL Aspartate Amino Transf (AST/SGOT) 186 H 5-34 U/L Alanine Aminotransferase (ALT/SGPT) 144 H 0-55 U/L Alkaline Phosphatase 325 H 40-136 U/L Total Protein 5.1 L 6.4-8.2 GM/DL Albumin 2.5 L 3.2-4.5 GM/DL Triglycerides Level 360 H <150 MG/DL Procalcitonin 95.60 H <0.10 NG/ML Glucometer 111 H 70-110 MG/DL Test 06/13/21 11:54 06/13/21 15:39 06/13/21 19:40 06/13/21 23:13 Range/Units Glucometer 140 H 133 H 122 H 120 H 70-110 MG/DL Test 06/14/21 03:36 06/14/21 03:45 06/14/21 08:36 06/14/21 11:46 Range/Units White Blood Count 9.3 4.3-11.0 10^3/uL Red Blood Count 3.40 L 4.30-5.52 10^6/uL Hemoglobin 10.6 L 13.3-17.7 g/dL Hematocrit 32 L 40-54 % Mean Corpuscular Volume 95 80-99 fL Mean Corpuscular Hemoglobin 31 25-34 pg Mean Corpuscular Hemoglobin Concent 33 32-36 g/dL Red Cell Distribution Width 13.8 10.0-14.5 % Platelet Count 106 L 130-400 10^3/uL Mean Platelet Volume 12.0 9.0-12.2 fL Immature Granulocyte % (Auto) 5 % Neutrophils (%) (Auto) 70 42-75 % Lymphocytes (%) (Auto) 13 12-44 % Monocytes (%) (Auto) 7 0-12 % Eosinophils (%) (Auto) 5 0-10 % Basophils (%) (Auto) 1 0-10 % Neutrophils # (Auto) 6.6 1.8-7.8 10^3/uL Lymphocytes # (Auto) 1.2 1.0-4.0 10^3/uL Monocytes # (Auto) 0.7 0.0-1.0 10^3/uL Eosinophils # (Auto) 0.4 H 0.0-0.3 10^3/uL Basophils # (Auto) 0.1 0.0-0.1 10^3/uL Immature Granulocyte # (Auto) 0.5 H 0.0-0.1 10^3/uL Sodium Level 146 H 135-145 MMOL/L Potassium Level 3.4 L 3.6-5.0 MMOL/L Chloride Level 106 98-107 MMOL/L Carbon Dioxide Level 28 21-32 MMOL/L Anion Gap 12 5-14 MMOL/L Blood Urea Nitrogen 45 H 7-18 MG/DL Creatinine 2.08 H 0.60-1.30 MG/DL Estimat Glomerular Filtration Rate 31 BUN/Creatinine Ratio 22 Glucose Level 111 H 70-105 MG/DL Calcium Level 7.2 L 8.5-10.1 MG/DL Corrected Calcium 8.5 8.5-10.1 MG/DL Phosphorus Level 3.3 2.3-4.7 MG/DL Magnesium Level 2.2 1.6-2.4 MG/DL Total Bilirubin 1.0 0.1-1.0 MG/DL Aspartate Amino Transf (AST/SGOT) 122 H 5-34 U/L Alanine Aminotransferase (ALT/SGPT) 119 H 0-55 U/L Alkaline Phosphatase 309 H 40-136 U/L Total Protein 5.3 L 6.4-8.2 GM/DL Albumin 2.4 L 3.2-4.5 GM/DL Blood Gas Puncture Site R RADIAL Blood Gas Patient Temperature 36.6 Arterial Blood pH 7.50 H 7.37-7.43 Arterial Blood Partial Pressure CO2 37 35-45 MMHG Arterial Blood Partial Pressure O2 111 H 79-93 MMHG Arterial Blood HCO3 29 H 23-27 MMOL/L Arterial Blood Total CO2 30.0 21.0-31.0 MMOL/L Arterial Blood Oxygen Saturation 99 94-100 % Arterial Blood Base Excess 5.2 H -2.5-2.5 MMOL/L Eddi Test YES-POS Blood Gas Ventilator Setting YES Blood Gas Inspired Oxygen NA Glucometer 111 H 104 70-110 MG/DL Test 06/14/21 20:36 06/14/21 23:00 06/15/21 04:36 06/15/21 09:13 Range/Units Glucometer 152 H 180 H 135 H 70-110 MG/DL White Blood Count 10.1 4.3-11.0 10^3/uL Red Blood Count 3.33 L 4.30-5.52 10^6/uL Hemoglobin 10.2 L 13.3-17.7 g/dL Hematocrit 32 L 40-54 % Mean Corpuscular Volume 95 80-99 fL Mean Corpuscular Hemoglobin 31 25-34 pg Mean Corpuscular Hemoglobin Concent 32 32-36 g/dL Red Cell Distribution Width 14.0 10.0-14.5 % Platelet Count 121 L 130-400 10^3/uL Mean Platelet Volume 11.8 9.0-12.2 fL Immature Granulocyte % (Auto) 5 % Neutrophils (%) (Auto) 72 42-75 % Lymphocytes (%) (Auto) 12 12-44 % Monocytes (%) (Auto) 8 0-12 % Eosinophils (%) (Auto) 4 0-10 % Basophils (%) (Auto) 0 0-10 % Neutrophils # (Auto) 7.3 1.8-7.8 10^3/uL Lymphocytes # (Auto) 1.2 1.0-4.0 10^3/uL Monocytes # (Auto) 0.8 0.0-1.0 10^3/uL Eosinophils # (Auto) 0.4 H 0.0-0.3 10^3/uL Basophils # (Auto) 0.0 0.0-0.1 10^3/uL Immature Granulocyte # (Auto) 0.5 H 0.0-0.1 10^3/uL Percent Immature Platelet Fraction 8.8 H 0.0-7.6 % Blood Gas Puncture Site RIGHT RADIAL Blood Gas Patient Temperature 37.7 Arterial Blood pH 7.49 H 7.37-7.43 Arterial Blood Partial Pressure CO2 38 35-45 MMHG Arterial Blood Partial Pressure O2 49 L 79-93 MMHG Arterial Blood HCO3 28 H 23-27 MMOL/L Arterial Blood Total CO2 29.1 21.0-31.0 MMOL/L Arterial Blood Oxygen Saturation 80 L 94-100 % Arterial Blood Base Excess 4.7 H -2.5-2.5 MMOL/L Eddi Test YES-POS Blood Gas Ventilator Setting YES Blood Gas Inspired Oxygen 40% Sodium Level 144 135-145 MMOL/L Potassium Level 3.6 3.6-5.0 MMOL/L Chloride Level 109 H 98-107 MMOL/L Carbon Dioxide Level 27 21-32 MMOL/L Anion Gap 8 5-14 MMOL/L Blood Urea Nitrogen 46 H 7-18 MG/DL Creatinine 2.07 H 0.60-1.30 MG/DL Estimat Glomerular Filtration Rate 31 BUN/Creatinine Ratio 22 Glucose Level 158 H 70-105 MG/DL Calcium Level 7.2 L 8.5-10.1 MG/DL Corrected Calcium 8.6 8.5-10.1 MG/DL Phosphorus Level 2.7 2.3-4.7 MG/DL Magnesium Level 2.2 1.6-2.4 MG/DL Total Bilirubin 0.7 0.1-1.0 MG/DL Aspartate Amino Transf (AST/SGOT) 89 H 5-34 U/L Alanine Aminotransferase (ALT/SGPT) 98 H 0-55 U/L Alkaline Phosphatase 311 H 40-136 U/L Total Protein 5.3 L 6.4-8.2 GM/DL Albumin 2.3 L 3.2-4.5 GM/DL Test 06/15/21 12:13 06/15/21 13:23 06/15/21 17:43 06/15/21 22:32 Range/Units Glucometer 135 H 91 65 L 70-110 MG/DL Blood Gas Puncture Site LR Blood Gas Patient Temperature 37.7 Arterial Blood pH 7.48 H 7.37-7.43 Arterial Blood Partial Pressure CO2 36 35-45 MMHG Arterial Blood Partial Pressure O2 78 L 79-93 MMHG Arterial Blood HCO3 26 23-27 MMOL/L Arterial Blood Total CO2 26.9 21.0-31.0 MMOL/L Arterial Blood Oxygen Saturation 95 94-100 % Arterial Blood Base Excess 2.6 H -2.5-2.5 MMOL/L Eddi Test YES-POS Blood Gas Ventilator Setting YES Blood Gas Inspired Oxygen 50% Test 06/16/21 00:51 06/16/21 04:06 06/16/21 04:56 06/16/21 11:11 Range/Units Glucometer 84 80 70-110 MG/DL White Blood Count 14.5 H 4.3-11.0 10^3/uL Red Blood Count 3.57 L 4.30-5.52 10^6/uL Hemoglobin 11.0 L 13.3-17.7 g/dL Hematocrit 34 L 40-54 % Mean Corpuscular Volume 95 80-99 fL Mean Corpuscular Hemoglobin 31 25-34 pg Mean Corpuscular Hemoglobin Concent 32 32-36 g/dL Red Cell Distribution Width 14.3 10.0-14.5 % Platelet Count 172 130-400 10^3/uL Mean Platelet Volume 11.8 9.0-12.2 fL Immature Granulocyte % (Auto) 4 % Neutrophils (%) (Auto) 80 H 42-75 % Lymphocytes (%) (Auto) 8 L 12-44 % Monocytes (%) (Auto) 7 0-12 % Eosinophils (%) (Auto) 0 0-10 % Basophils (%) (Auto) 0 0-10 % Neutrophils # (Auto) 11.6 H 1.8-7.8 10^3/uL Lymphocytes # (Auto) 1.2 1.0-4.0 10^3/uL Monocytes # (Auto) 1.0 0.0-1.0 10^3/uL Eosinophils # (Auto) 0.0 0.0-0.3 10^3/uL Basophils # (Auto) 0.1 0.0-0.1 10^3/uL Immature Granulocyte # (Auto) 0.6 H 0.0-0.1 10^3/uL Sodium Level 146 H 135-145 MMOL/L Potassium Level 3.9 3.6-5.0 MMOL/L Chloride Level 112 H 98-107 MMOL/L Carbon Dioxide Level 25 21-32 MMOL/L Anion Gap 9 5-14 MMOL/L Blood Urea Nitrogen 43 H 7-18 MG/DL Creatinine 2.23 H 0.60-1.30 MG/DL Estimat Glomerular Filtration Rate 28 BUN/Creatinine Ratio 19 Glucose Level 102 70-105 MG/DL Calcium Level 7.7 L 8.5-10.1 MG/DL Corrected Calcium 8.9 8.5-10.1 MG/DL Phosphorus Level 3.5 2.3-4.7 MG/DL Magnesium Level 2.2 1.6-2.4 MG/DL Total Bilirubin 0.6 0.1-1.0 MG/DL Aspartate Amino Transf (AST/SGOT) 88 H 5-34 U/L Alanine Aminotransferase (ALT/SGPT) 83 H 0-55 U/L Alkaline Phosphatase 348 H 40-136 U/L Total Protein 5.8 L 6.4-8.2 GM/DL Albumin 2.5 L 3.2-4.5 GM/DL B-Type Natriuretic Peptide 820.3 H <100.0 PG/ML Procalcitonin 30.01 H <0.10 NG/ML Test 06/16/21 18:29 06/17/21 04:25 06/17/21 11:12 06/17/21 14:15 Range/Units Glucometer 93 113 H 70-110 MG/DL White Blood Count 13.6 H 4.3-11.0 10^3/uL Red Blood Count 3.69 L 4.30-5.52 10^6/uL Hemoglobin 11.5 L 13.3-17.7 g/dL Hematocrit 36 L 40-54 % Mean Corpuscular Volume 97 80-99 fL Mean Corpuscular Hemoglobin 31 25-34 pg Mean Corpuscular Hemoglobin Concent 32 32-36 g/dL Red Cell Distribution Width 14.2 10.0-14.5 % Platelet Count 202 130-400 10^3/uL Mean Platelet Volume 11.6 9.0-12.2 fL Immature Granulocyte % (Auto) 2 % Neutrophils (%) (Auto) 80 H 42-75 % Lymphocytes (%) (Auto) 9 L 12-44 % Monocytes (%) (Auto) 7 0-12 % Eosinophils (%) (Auto) 2 0-10 % Basophils (%) (Auto) 0 0-10 % Neutrophils # (Auto) 10.9 H 1.8-7.8 10^3/uL Lymphocytes # (Auto) 1.3 1.0-4.0 10^3/uL Monocytes # (Auto) 0.9 0.0-1.0 10^3/uL Eosinophils # (Auto) 0.2 0.0-0.3 10^3/uL Basophils # (Auto) 0.0 0.0-0.1 10^3/uL Immature Granulocyte # (Auto) 0.3 H 0.0-0.1 10^3/uL Sodium Level 148 H 135-145 MMOL/L Potassium Level 3.9 3.6-5.0 MMOL/L Chloride Level 113 H 98-107 MMOL/L Carbon Dioxide Level 23 21-32 MMOL/L Anion Gap 12 5-14 MMOL/L Blood Urea Nitrogen 46 H 7-18 MG/DL Creatinine 2.03 H 0.60-1.30 MG/DL Estimat Glomerular Filtration Rate 32 BUN/Creatinine Ratio 23 Glucose Level 111 H 70-105 MG/DL Calcium Level 8.1 L 8.5-10.1 MG/DL Corrected Calcium 9.1 8.5-10.1 MG/DL Phosphorus Level 2.6 2.3-4.7 MG/DL Magnesium Level 2.4 1.6-2.4 MG/DL Total Bilirubin 0.7 0.1-1.0 MG/DL Aspartate Amino Transf (AST/SGOT) 70 H 5-34 U/L Alanine Aminotransferase (ALT/SGPT) 73 H 0-55 U/L Alkaline Phosphatase 348 H 40-136 U/L Total Protein 6.3 L 6.4-8.2 GM/DL Albumin 2.8 L 3.2-4.5 GM/DL Prothrombin Time 15.5 H 12.2-14.7 SEC INR Comment 1.2 0.8-1.4 Activated Partial Thromboplast Time 54 H 24-35 SEC Fibrinogen 1081 H 221-496 MG/DL D-Dimer 1.19 H 0.00-0.49 UG/ML Test 06/17/21 17:31 06/18/21 03:15 Range/Units Glucometer 144 H 70-110 MG/DL White Blood Count 14.4 H 4.3-11.0 10^3/uL Red Blood Count 4.03 L 4.30-5.52 10^6/uL Hemoglobin 12.1 L 13.3-17.7 g/dL Hematocrit 38 L 40-54 % Mean Corpuscular Volume 95 80-99 fL Mean Corpuscular Hemoglobin 30 25-34 pg Mean Corpuscular Hemoglobin Concent 32 32-36 g/dL Red Cell Distribution Width 14.0 10.0-14.5 % Platelet Count 274 130-400 10^3/uL Mean Platelet Volume 11.4 9.0-12.2 fL Immature Granulocyte % (Auto) 2 % Neutrophils (%) (Auto) 79 H 42-75 % Lymphocytes (%) (Auto) 12 12-44 % Monocytes (%) (Auto) 6 0-12 % Eosinophils (%) (Auto) 1 0-10 % Basophils (%) (Auto) 0 0-10 % Neutrophils # (Auto) 11.4 H 1.8-7.8 10^3/uL Lymphocytes # (Auto) 1.7 1.0-4.0 10^3/uL Monocytes # (Auto) 0.9 0.0-1.0 10^3/uL Eosinophils # (Auto) 0.2 0.0-0.3 10^3/uL Basophils # (Auto) 0.0 0.0-0.1 10^3/uL Immature Granulocyte # (Auto) 0.2 H 0.0-0.1 10^3/uL Sodium Level 151 H 135-145 MMOL/L Potassium Level 3.5 L 3.6-5.0 MMOL/L Chloride Level 114 H 98-107 MMOL/L Carbon Dioxide Level 20 L 21-32 MMOL/L Anion Gap 17 H 5-14 MMOL/L Blood Urea Nitrogen 49 H 7-18 MG/DL Creatinine 2.00 H 0.60-1.30 MG/DL Estimat Glomerular Filtration Rate 32 BUN/Creatinine Ratio 25 Glucose Level 128 H 70-105 MG/DL Calcium Level 8.4 L 8.5-10.1 MG/DL Corrected Calcium 9.1 8.5-10.1 MG/DL Phosphorus Level 2.5 2.3-4.7 MG/DL Magnesium Level 2.4 1.6-2.4 MG/DL Total Bilirubin 0.7 0.1-1.0 MG/DL Aspartate Amino Transf (AST/SGOT) 49 H 5-34 U/L Alanine Aminotransferase (ALT/SGPT) 63 H 0-55 U/L Alkaline Phosphatase 377 H 40-136 U/L Total Protein 6.8 6.4-8.2 GM/DL Albumin 3.1 L 3.2-4.5 GM/DL Micro Results Microbiology 06/12/21 Blood Culture - Final, Complete No growth 06/12/21 Blood Culture - Final, Complete No growth 06/09/21 MRSA Screen - Final, Complete MRSA not isolated 06/09/21 Blood Culture - Final, Complete Klebsiella pneumoniae 06/09/21 Urine Culture - Final, Complete Escherichia coli Klebsiella pneumoniae Enterococcus faecalis Aerococcus urinae 06/09/21 Blood Culture - Final, Complete Klebsiella pneumoniae Vital Signs/I&O 06/12/21 06/12/21 06/12/21 06/12/21 00:00 00:26 01:00 01:00 Pulse 80 82 82 Resp 18 15 B/P (MAP) 122/61 (81) 112/60 118/63 (81) Pulse Ox 94 93 O2 Delivery Mechanical Ventilator Mechanical Ventilator O2 Flow Rate 35.00 35.00 06/12/21 06/12/21 06/12/21 06/12/21 02:00 02:31 02:46 03:00 Temp 36.3 Pulse 75 75 73 Resp 15 15 15 B/P (MAP) 122/65 (84) 125/66 (85) Pulse Ox 94 93 95 O2 Delivery Mechanical Ventilator Mechanical Ventilator O2 Flow Rate 35.00 35.00 FiO2 35 06/12/21 06/12/21 06/12/21 06/12/21 03:04 03:50 04:00 04:10 Pulse 86 Resp 18 B/P (MAP) 134/71 123/57 (79) 123/57 Pulse Ox 95 O2 Delivery Mechanical Ventilator Mechanical Ventilator O2 Flow Rate 35.00 FiO2 35 06/12/21 06/12/21 06/12/21 06/12/21 05:00 06:00 06:42 06:50 Pulse 83 80 78 80 Resp 16 15 15 B/P (MAP) 128/62 (84) 116/68 (84) Pulse Ox 94 94 96 O2 Delivery Mechanical Ventilator Mechanical Ventilator O2 Flow Rate 35.00 35.00 FiO2 35 06/12/21 06/12/21 06/12/21 06/12/21 07:00 07:43 08:00 08:00 Temp 36.4 Pulse 75 79 Resp 15 15 B/P (MAP) 124/67 (86) 128/69 (88) Pulse Ox 96 95 O2 Delivery Mechanical Ventilator Mechanical Ventilator Mechanical Ventilator O2 Flow Rate 35.00 35.00 FiO2 35 06/12/21 7/ 7//06/12/21 09:00 10:00 10:04 11:00 Pulse 82 86 87 79 Resp 16 18 19 15 B/P (MAP) 144/74 (97) 135/73 (93) 119/62 (81) Pulse Ox 96 94 95 94 O2 Delivery Mechanical Ventilator Mechanical Ventilator Mechanical Ventilator O2 Flow Rate 35.00 35.00 35.00 FiO2 35 06/12/21 06/12/13 06/06/12/21 11:55 12:00 12:18 12:38 Temp 36.6 Pulse 75 75 Resp 14 B/P (MAP) 130/68 (88) 130/68 Pulse Ox 95 O2 Delivery Mechanical Ventilator Mechanical Ventilator O2 Flow Rate 35.00 FiO2 35 06/12/ 7// 7//06/12/21 12:39 12:42 13:00 14:00 Pulse 75 77 78 79 Resp 12 15 B/P (MAP) 130/68 125/69 (87) 123/72 (89) Pulse Ox 96 83 O2 Delivery Mechanical Ventilator Mechanical Ventilator O2 Flow Rate 35.00 35.00 06/12/2106/12/13 06//06/12/21 14:26 15:00 16:00 16:00 Temp 36.6 Pulse 80 81 74 Resp 18 18 16 B/P (MAP) 119/70 (86) 117/62 (80) Pulse Ox 94 92 91 O2 Delivery Mechanical Ventilator Mechanical Ventilator O2 Flow Rate 35.00 35.00 FiO2 50 06/12/06/12/13 06//06/12/21 16:00 17:00 17:24 18:00 Pulse 85 85 96 Resp 25 15 B/P (MAP) 122/80 (94) 122/80 128/67 (87) Pulse Ox 92 93 O2 Delivery Mechanical Ventilator Mechanical Ventilator Mechanical Ventilator O2 Flow Rate 35.00 35.00 FiO2 35 06/12/21 7//21 7//21 06/12/21 18:19 19:00 19:00 19:18 Temp 36.2 Pulse 92 95 95 Resp 20 23 B/P (MAP) 129/69 (89) Pulse Ox 93 93 O2 Delivery Mechanical Ventilator Mechanical Ventilator O2 Flow Rate 35.00 35.00 FiO2 35 06/12/21 06/12/21 06/12/21 06/12/21 19:23 20:00 20:47 20:50 Pulse 104 101 Resp 23 B/P (MAP) 146/79 (101) Pulse Ox 91 92 O2 Delivery Mechanical Ventilator Mechanical Ventilator Mechanical Ventilator O2 Flow Rate 35.00 45.00 FiO2 35 06/12/21 06/12/21 06/12/21 06/12/21 21:00 21:23 22:00 22:37 Pulse 102 94 82 Resp 21 15 15 B/P (MAP) 137/67 (90) 117/58 105/61 (76) Pulse Ox 91 92 92 O2 Delivery Mechanical Ventilator Mechanical Ventilator O2 Flow Rate 45.00 45.00 FiO2 45 06/12/21 06/12/21 06/12/21 06/12/21 22:58 23:00 23:30 23:37 Temp 36.4 Pulse 89 89 Resp 18 17 B/P (MAP) 116/63 (80) Pulse Ox 90 92 91 O2 Delivery Mechanical Ventilator Mechanical Ventilator Mechanical Ventilator O2 Flow Rate 55.00 55.00 FiO2 55 06/13/21 06/13/21 06/13/21 06/13/21 00:00 00:49 01:00 01:00 Pulse 87 89 89 Resp 16 16 B/P (MAP) 101/60 (74) 121/66 (84) Pulse Ox 92 95 O2 Delivery Mechanical Ventilator Mechanical Ventilator Mechanical Ventilator O2 Flow Rate 55.00 60.00 60.00 06/13/21 06/13/21 06/13/21 06/13/21 01:50 01:54 02:00 02:38 Temp 36.7 Pulse 87 83 Resp 23 21 B/P (MAP) 114/74 105/58 (74) Pulse Ox 91 98 O2 Delivery Mechanical Ventilator O2 Flow Rate 60.00 FiO2 60 06/13/21 06/13/21 06/13/21 06/13/21 02:41 03:00 03:05 04:00 Pulse 84 81 Resp 27 25 B/P (MAP) 103/58 (73) 98/55 (69) Pulse Ox 93 91 93 O2 Delivery Mechanical Ventilator Mechanical Ventilator Mechanical Ventilator Mechanical Ventilator O2 Flow Rate 50.00 50.00 50.00 FiO2 50 06/13/21 06/13/21 06/13/21 06/13/21 04:50 05:00 05:50 06:00 Pulse 80 82 79 Resp 26 26 25 B/P (MAP) 93/56 (68) 108/70 117/72 (87) Pulse Ox 94 93 94 O2 Delivery Mechanical Ventilator Mechanical Ventilator Mechanical Ventilator O2 Flow Rate 60.00 60.00 60.00 06/13/21 06/13/21 06/13/21 06/13/21 06:35 06:45 07:00 07:00 Pulse 80 80 77 Resp 18 24 B/P (MAP) 112/70 (84) Pulse Ox 92 92 O2 Delivery Mechanical Ventilator Mechanical Ventilator O2 Flow Rate 50.00 50.00 FiO2 50 06/13/21 06/13/21 06/13/21 06/13/21 07:30 08:00 08:00 09:00 Temp 36.6 Pulse 78 85 Resp 25 22 B/P (MAP) 103/65 (78) 115/71 (86) Pulse Ox 92 96 O2 Delivery Mechanical Ventilator Mechanical Ventilator Mechanical Ventilator O2 Flow Rate 50.00 50.00 FiO2 50 06/13/21 06/13/21 06/13/21 06/13/21 10:00 10:48 11:00 11:56 Temp 36.3 Pulse 87 76 76 Resp 21 21 24 B/P (MAP) 97/56 (70) 97/64 (75) Pulse Ox 91 92 92 O2 Delivery Mechanical Ventilator Mechanical Ventilator O2 Flow Rate 50.00 50.00 FiO2 50 06/13/21 06/13/21 06/13/21 06/13/21 12:00 12:00 12:44 13:00 Pulse 75 72 68 Resp 24 20 B/P (MAP) 102/63 (76) 115/75 (88) Pulse Ox 91 96 O2 Delivery Mechanical Ventilator Mechanical Ventilator Mechanical Ventilator O2 Flow Rate 50.00 50.00 FiO2 50 06/13/21 06/13/21 06/13/21 06/13/21 13:23 14:00 14:03 15:00 Pulse 80 80 81 Resp 19 24 19 B/P (MAP) 120/83 99/52 (68) 114/63 (80) Pulse Ox 94 92 91 O2 Delivery Mechanical Ventilator Mechanical Ventilator O2 Flow Rate 40.00 40.00 FiO2 40 06/13/21 06/13/21 06/13/21 06/13/21 16:00 16:00 16:08 17:00 Temp 37.8 Pulse 82 77 Resp 23 16 B/P (MAP) 87/52 (64) 100/59 (73) Pulse Ox 94 94 O2 Delivery Mechanical Ventilator Mechanical Ventilator Mechanical Ventilator O2 Flow Rate 40.00 40.00 FiO2 50 06/13/21 06/13/21 06/13/21 06/13/21 17:49 17:58 18:00 18:42 Temp 38.1 36.4 Pulse 70 71 Resp 22 14 B/P (MAP) 121/75 (90) Pulse Ox 98 98 O2 Delivery Mechanical Ventilator O2 Flow Rate 40.00 FiO2 50 06/13/21 06/13/21 06/13/21 06/13/21 19:00 19:00 19:51 19:55 Temp 36.3 Pulse 80 77 71 B/P (MAP) 92/56 (68) 121/75 Pulse Ox 90 O2 Delivery Mechanical Ventilator O2 Flow Rate 40.00 06/13/21 06/13/21 06/13/21 06/13/21 20:00 20:00 21:00 22:00 Pulse 72 75 72 Resp 18 16 17 B/P (MAP) 121/69 (86) 107/62 (77) 120/67 (84) Pulse Ox 91 92 92 O2 Delivery Mechanical Ventilator Mechanical Ventilator Mechanical Ventilator Mechanical Ventilator O2 Flow Rate 40.00 40.00 40.00 FiO2 40 06/13/21 06/13/21 06/13/21 06/13/21 23:00 23:02 23:08 23:59 Temp 37.7 Pulse 74 77 Resp 20 22 B/P (MAP) 126/69 (88) Pulse Ox 91 96 O2 Delivery Mechanical Ventilator Mechanical Ventilator Mechanical Ventilator O2 Flow Rate 40.00 45.00 FiO2 45 40 06/14/21 06/14/21 06/14/21 06/14/21 00:00 01:00 01:00 02:00 Pulse 70 66 69 68 Resp 19 15 19 B/P (MAP) 106/60 (75) 109/57 (74) 121/70 (87) Pulse Ox 93 94 93 O2 Delivery Mechanical Ventilator Mechanical Ventilator Mechanical Ventilator O2 Flow Rate 45.00 45.00 45.00 06/14/21 06/14/21 06/14/21 06/14/21 02:52 03:00 03:04 03:38 Temp 36.6 Pulse 66 63 86 Resp 11 22 B/P (MAP) 112/69 113/82 (92) Pulse Ox 94 94 O2 Delivery Mechanical Ventilator O2 Flow Rate 45.00 FiO2 45 06/14/21 06/14/21 06/14/21 06/14/21 04:00 04:02 04:29 05:00 Pulse 75 73 Resp 21 16 B/P (MAP) 106/82 (90) 99/57 (71) Pulse Ox 93 94 O2 Delivery Mechanical Ventilator Mechanical Ventilator Mechanical Ventilator Mechanical Ventilator O2 Flow Rate 45.00 55.00 45.00 FiO2 40 06/14/21 06/14/21 06/14/21 06/14/21 06:00 06:45 06:55 07:00 Pulse 66 65 63 64 Resp 18 17 17 B/P (MAP) 102/58 (73) 104/57 (73) Pulse Ox 95 95 95 O2 Delivery Mechanical Ventilator Mechanical Ventilator O2 Flow Rate 55.00 55.00 FiO2 45 06/14/21 06/14/21 06/14/21 06/14/21 08:00 08:00 08:04 09:00 Temp 36.7 Pulse 63 64 Resp 15 15 B/P (MAP) 112/62 (79) 103/57 (72) Pulse Ox 95 94 O2 Delivery Mechanical Ventilator Mechanical Ventilator Mechanical Ventilator O2 Flow Rate 55.00 55.00 FiO2 45 06/14/21 06/14/21 06/14/21 06/14/21 09:35 10:00 10:09 11:00 Pulse 63 60 61 Resp 16 16 17 B/P (MAP) 106/56 (73) 111/65 (80) Pulse Ox 95 95 94 O2 Delivery Mechanical Ventilator Mechanical Ventilator Mechanical Ventilator O2 Flow Rate 45.00 45.00 45.00 FiO2 40 06/14/21 06/14/21 06/14/21 06/14/21 11:30 12:00 12:00 12:30 Temp 37.0 Pulse 65 68 Resp 18 B/P (MAP) 117/70 (86) Pulse Ox 91 O2 Delivery Mechanical Ventilator Mechanical Ventilator O2 Flow Rate 45.00 FiO2 45 06/14/21 06/14/21 06/14/21 06/14/21 13:00 14:00 14:22 15:00 Pulse 64 71 73 75 Resp 23 18 23 19 B/P (MAP) 130/77 (94) 143/88 (106) 151/88 (109) Pulse Ox 94 92 92 91 O2 Delivery Mechanical Ventilator Mechanical Ventilator Mechanical Ventilator O2 Flow Rate 45.00 45.00 45.00 FiO2 40 06/14/21 06/14/21 06/14/21 06/14/21 15:32 15:43 16:00 16:00 Pulse 89 75 Resp 40 13 B/P (MAP) 146/79 139/73 (95) Pulse Ox 90 90 O2 Delivery Mechanical Ventilator Mechanical Ventilator O2 Flow Rate 45.00 FiO2 40 40 06/14/21 06/14/21 06/14/21 06/14/21 16:55 17:00 18:00 18:37 Temp 37.6 Pulse 71 64 62 Resp 24 16 18 B/P (MAP) 109/56 (73) 114/58 (76) Pulse Ox 90 91 92 O2 Delivery Mechanical Ventilator Mechanical Ventilator O2 Flow Rate 45.00 45.00 FiO2 40 06/14/21 06/14/21 06/14/21 06/14/21 19:00 19:00 19:25 20:00 Pulse 62 63 Resp 16 B/P (MAP) 118/55 (76) Pulse Ox 93 O2 Delivery Mechanical Ventilator Mechanical Ventilator Mechanical Ventilator O2 Flow Rate 40.00 40.00 FiO2 40 06/14/21 06/14/21 06/14/21 06/14/21 20:00 20:30 21:00 21:24 Temp 37.6 Pulse 58 58 58 Resp 16 18 18 B/P (MAP) 136/77 (96) 133/71 (91) Pulse Ox 93 93 95 O2 Delivery Mechanical Ventilator Mechanical Ventilator O2 Flow Rate 40.00 40.00 FiO2 40 06/14/21 06/14/21 06/15/21 06/15/21 22:00 23:00 00:00 00:00 Pulse 63 60 56 Resp 23 19 19 B/P (MAP) 115/70 (85) 124/76 (92) 131/77 (95) Pulse Ox 93 93 94 O2 Delivery Mechanical Ventilator Mechanical Ventilator Mechanical Ventilator Mechanical Ventilator O2 Flow Rate 40.00 40.00 40.00 FiO2 40 06/15/21 06/15/21 06/15/21 06/15/21 00:07 00:48 01:00 02:00 Temp 36.6 Pulse 58 54 63 Resp 24 19 B/P (MAP) 134/75 (94) 133/75 (94) Pulse Ox 93 94 O2 Delivery Mechanical Ventilator Mechanical Ventilator O2 Flow Rate 40.00 40.00 06/15/21 06/15/21 06/15/21 06/15/21 02:07 02:37 03:00 04:00 Pulse 52 56 56 56 Resp 21 16 10 B/P (MAP) 125/68 127/71 (89) 131/72 (91) Pulse Ox 94 91 91 O2 Delivery Mechanical Ventilator Mechanical Ventilator O2 Flow Rate 40.00 40.00 FiO2 40 06/15/21 06/15/21 06/15/21 06/15/21 04:00 04:34 05:00 06:00 Temp 37.7 Pulse 55 54 Resp 19 18 B/P (MAP) 139/77 (97) 136/75 (95) Pulse Ox 91 91 O2 Delivery Mechanical Ventilator Mechanical Ventilator Mechanical Ventilator O2 Flow Rate 40.00 40.00 FiO2 40 06/15/21 06/15/21 06/15/21 06/15/21 06:59 07:00 07:00 08:00 Pulse 55 66 53 Resp 18 18 B/P (MAP) 134/83 (100) Pulse Ox 92 91 O2 Delivery Mechanical Ventilator Mechanical Ventilator O2 Flow Rate 40.00 FiO2 45 45 06/15/21 06/15/21 06/15/21 06/15/21 08:00 08:02 08:24 09:00 Temp 37.3 Pulse 53 55 Resp 13 B/P (MAP) 130/72 (91) 124/66 (85) Pulse Ox 91 91 O2 Delivery Mechanical Ventilator Mechanical Ventilator Mechanical Ventilator O2 Flow Rate 40.00 50.00 50.00 06/15/21 06/15/21 06/15/21 06/15/21 10:00 11:00 11:03 12:00 Pulse 53 54 56 Resp 9 B/P (MAP) 130/71 (90) 124/69 (87) 124/71 (88) Pulse Ox 91 91 88 O2 Delivery Mechanical Ventilator Mechanical Ventilator Mechanical Ventilator Mechanical Ventilator O2 Flow Rate 50.00 50.00 50.00 FiO2 50 06/15/21 06/15/21 06/15/21 06/15/21 12:57 13:00 13:00 14:00 Temp 36.8 Pulse 66 54 75 Resp 36 B/P (MAP) 126/73 (94) 156/85 (112) Pulse Ox 85 O2 Delivery Mechanical Ventilator Mechanical Ventilator O2 Flow Rate 50.00 50.00 06/15/21 06/15/21 06/15/21 06/15/21 14:34 15:00 15:34 15:54 Temp 37.1 Pulse 75 Resp 40 B/P (MAP) 167/81 (111) Pulse Ox 96 O2 Delivery High Flow N/C High Flow N/C High Flow N/C O2 Flow Rate 8.00 8.00 8.00 06/15/21 06/15/21 06/15/21 06/15/21 16:00 17:00 18:00 19:00 Pulse 80 82 84 95 Resp 19 B/P (MAP) 181/95 (123) 184/91 (122) 183/94 (123) 217/104 (141) Pulse Ox 100 100 91 94 O2 Delivery High Flow N/C High Flow N/C High Flow N/C High Flow N/C O2 Flow Rate 8.00 8.00 8.00 10.00 06/15/21 06/15/21 06/15/21 06/15/21 19:00 19:00 19:40 20:00 Temp 37.5 Pulse 96 101 Resp 21 B/P (MAP) 213/108 (143) Pulse Ox 94 O2 Delivery High Flow N/C High Flow N/C O2 Flow Rate 10.00 10.00 06/15/21 06/15/21 06/15/21 06/15/21 20:00 21:00 22:00 23:00 Pulse 112 125 121 Resp 14 10 49 B/P (MAP) 194/98 (130) 194/98 (130) 202/101 (134) Pulse Ox 96 82 94 O2 Delivery High Flow N/C High Flow N/C High Flow N/C High Flow N/C O2 Flow Rate 10.00 10.00 10.00 10.00 06/15/21 06/16/21 06/16/21 06/16/21 23:30 00:00 00:00 01:00 Temp 38.6 Pulse 120 89 Resp 39 14 B/P (MAP) 182/102 (128) 156/84 (108) Pulse Ox 94 96 O2 Delivery High Flow N/C High Flow N/C High Flow N/C High Flow N/C O2 Flow Rate 10.00 10.00 10.00 10.00 06/16/21 06/16/21 06/16/21 06/16/21 01:00 02:00 03:00 03:43 Temp 37.3 Pulse 89 92 92 Resp 36 39 B/P (MAP) 155/88 (110) 146/87 (106) Pulse Ox 96 94 O2 Delivery High Flow N/C High Flow N/C High Flow N/C O2 Flow Rate 10.00 10.00 9.00 06/16/21 06/16/21 06/16/21 06/16/21 04:00 04:00 04:01 05:00 Pulse 90 90 Resp 30 22 B/P (MAP) 157/81 (106) 152/82 (105) Pulse Ox 95 95 O2 Delivery High Flow N/C High Flow N/C High Flow N/C High Flow N/C O2 Flow Rate 9.00 9.00 8.00 8.00 06/16/21 06/16/21 06/16/21 06/16/21 05:49 06:00 07:00 07:00 Pulse 87 86 87 Resp 32 21 B/P (MAP) 150/79 (102) 166/86 (112) Pulse Ox 94 94 O2 Delivery High Flow N/C High Flow N/C High Flow N/C O2 Flow Rate 7.00 7.00 7.00 06/16/21 06/16/21 06/16/21 06/16/21 07:59 08:00 08:30 09:00 Temp 35.9 Pulse 86 89 Resp 31 25 B/P (MAP) 171/89 (116) 165/80 (108) Pulse Ox 94 94 O2 Delivery High Flow N/C High Flow N/C High Flow N/C O2 Flow Rate 7.00 7.00 7.00 06/16/21 06/16/21 06/16/21 06/16/21 10:00 11:00 11:56 12:00 Temp 36.6 Pulse 79 82 78 Resp 31 24 B/P (MAP) 180/91 (120) 181/96 (124) 190/104 (132) Pulse Ox 90 97 96 O2 Delivery High Flow N/C High Flow N/C High Flow N/C O2 Flow Rate 7.00 7.00 7.00 06/16/21 06/16/21 06/16/21 06/16/21 12:00 12:38 13:00 14:00 Pulse 79 82 80 Resp 21 34 B/P (MAP) 166/92 (116) 178/93 (121) Pulse Ox 95 97 O2 Delivery High Flow N/C High Flow N/C High Flow N/C O2 Flow Rate 7.00 7.00 7.00 06/16/21 06/16/21 06/16/21 06/16/21 15:00 16:00 16:00 16:00 Temp 37.0 Pulse 80 79 Resp 30 29 B/P (MAP) 172/87 (115) 180/93 (122) Pulse Ox 97 92 O2 Delivery High Flow N/C High Flow N/C High Flow N/C O2 Flow Rate 7.00 7.00 7.00 06/16/21 06/16/21 06/16/21 06/16/21 17:00 18:00 19:00 19:00 Pulse 78 83 82 85 Resp 18 20 21 B/P (MAP) 174/87 (116) 179/87 (117) 165/77 (106) Pulse Ox 99 92 96 O2 Delivery High Flow N/C High Flow N/C High Flow N/C O2 Flow Rate 7.00 7.00 7.00 06/16/21 06/16/21 06/16/21 06/16/21 20:00 20:00 20:49 21:00 Temp 36.7 Pulse 78 84 Resp 23 20 B/P (MAP) 171/83 (112) 171/86 (114) Pulse Ox 93 85 O2 Delivery High Flow N/C High Flow N/C High Flow N/C High Flow N/C O2 Flow Rate 7.00 7.00 6.00 6.00 06/16/21 06/16/21 06/16/21 06/17/21 21:36 22:00 23:00 00:00 Pulse 79 80 76 Resp 35 29 32 B/P (MAP) 160/88 (112) 187/101 (129) 176/100 (125) Pulse Ox 93 94 95 O2 Delivery High Flow N/C High Flow N/C High Flow N/C High Flow N/C O2 Flow Rate 5.00 5.00 5.00 5.00 06/17/21 06/17/21 06/17/21 06/17/21 00:00 00:54 01:00 01:00 Pulse 81 80 Resp 30 B/P (MAP) 194/100 (131) Pulse Ox 93 O2 Delivery High Flow N/C High Flow N/C High Flow N/C O2 Flow Rate 5.00 4.00 4.00 06/17/21 06/17/21 06/17/21 06/17/21 03:00 04:00 04:00 04:20 Temp 36.7 Pulse 87 88 Resp 29 30 B/P (MAP) 157/99 (118) 173/88 (116) Pulse Ox 92 92 O2 Delivery High Flow N/C High Flow N/C High Flow N/C O2 Flow Rate 4.00 4.00 4.00 06/17/21 06/17/21 06/17/21 06/17/21 05:00 06:00 07:00 07:00 Pulse 104 98 98 98 Resp 23 17 33 B/P (MAP) 169/87 (114) 156/94 (114) 175/89 (112) Pulse Ox 93 94 91 O2 Delivery High Flow N/C High Flow N/C High Flow N/C O2 Flow Rate 4.00 4.00 4.00 06/17/21 06/17/21 06/17/21 06/17/21 08:00 08:00 08:02 09:00 Temp 37.1 Pulse 96 99 Resp 20 12 B/P (MAP) 162/90 (116) 173/91 (118) Pulse Ox 90 90 O2 Delivery High Flow N/C High Flow N/C High Flow N/C O2 Flow Rate 4.00 4.00 4.00 06/17/21 06/17/21 06/17/21 06/17/21 10:00 11:00 11:47 12:00 Temp 37.4 Pulse 86 87 84 Resp 26 16 11 B/P (MAP) 165/94 (117) 164/84 (110) 168/91 (116) Pulse Ox 89 94 95 O2 Delivery High Flow N/C High Flow N/C High Flow N/C O2 Flow Rate 4.00 4.00 4.00 06/17/21 06/17/21 06/17/21 06/17/21 12:00 13:00 13:00 14:00 Pulse 82 83 82 Resp 13 34 B/P (MAP) 171/89 (116) 143/74 (97) Pulse Ox 97 93 O2 Delivery High Flow N/C High Flow N/C High Flow N/C O2 Flow Rate 4.00 4.00 4.00 06/17/21 06/17/21 06/17/21 06/17/21 15:00 15:38 16:00 16:00 Temp 37.0 Pulse 71 74 Resp 27 28 B/P (MAP) 157/77 (103) 166/81 (109) Pulse Ox 93 94 O2 Delivery High Flow N/C High Flow N/C High Flow N/C O2 Flow Rate 4.00 4.00 4.00 06/17/21 06/17/21 06/17/21 06/17/21 17:00 18:00 18:28 19:00 Pulse 75 78 80 Resp 14 24 B/P (MAP) 164/81 (108) 161/85 (110) Pulse Ox 94 91 O2 Delivery High Flow N/C High Flow N/C High Flow N/C O2 Flow Rate 4.00 4.00 1.00 06/17/21 06/17/21 06/17/21 06/17/21 19:00 19:00 19:40 20:00 Temp 36.8 Pulse 82 81 Resp 17 26 B/P (MAP) 166/76 (94) 156/74 (109) Pulse Ox 95 94 O2 Delivery Room Air Room Air Room Air 06/17/21 06/17/21 06/17/21 06/17/21 20:00 21:00 22:00 23:00 Pulse 88 77 76 Resp 19 27 15 B/P (MAP) 183/96 (134) 169/84 (122) 162/82 (115) Pulse Ox 96 95 96 O2 Delivery Room Air Room Air Room Air Room Air 06/17/21 06/18/21 06/18/21 06/18/21 23:59 00:00 00:00 01:00 Temp 36.9 Pulse 85 102 Resp 25 B/P (MAP) 208/99 (135) Pulse Ox 96 O2 Delivery Room Air Room Air 06/18/21 06/18/21 06/18/21 06/18/21 01:00 01:30 02:00 03:30 Pulse 102 95 92 90 Resp 20 18 33 39 B/P (MAP) 179/82 (114) 174/89 (117) 176/88 (117) Pulse Ox 96 95 94 95 O2 Delivery Room Air Room Air Room Air Room Air 06/18/21 06/18/21 06/18/21 06/18/21 04:00 04:00 05:00 06:00 Pulse 100 93 33 Resp 14 B/P (MAP) 184/97 (126) 186/92 (123) 51/31 (38) Pulse Ox 96 97 93 O2 Delivery Room Air Room Air Room Air Room Air 06/18/21 06:12 Pulse 102 Resp 26 Pulse Ox 99 FiO2 50 06/18/21 00:00 Intake Total 1400 ml Output Total 2525 ml Balance -1125 ml Blood Pressure Mean: 38 FSBG Bedside Testing Finger Stick Blood Glucose: 144 Blood Glucose Action Taken: used value from am labs Progress Progress Note : Progress Note Patient seen and evaluated. Report from nursing with code in progress. Initial pulse check after my arrival does show return of spontaneous circulation. Patient still not maintaining airway. Elected to intubate. This was done under my direct supervision and patient placed on vent with initial settings rate of 12, tidal volume 450 and PEEP of 5 with FiO2 at 50% to be titrated. For RSI for intubation, patient was given Versed 5 mg IV and succinylcholine 100 mg IV due to history of urosepsis. Post intubation sedation with propofol at 20 mcg/kg/min. We do have Levophed available if patient becomes hypotensive again and we will initiate if indicated. I have given report to the eICU team including current findings and treatment. I did also discuss the case with Dr. Ma, on-call hospitalist. We have initiated at 500 mL normal saline bolus and then we will initiate LR at 150 an hour. This was discussed with the hospitalist as well. Departed room at 0630 with blood pressure that had dropped but was improving and Levophed to be initiated. Titration orders given to nursing. Diagnosis: Cardiopulmonary arrest with return of spontaneous circulation Diagnostic Imaging Diagonstic Imaging: Xray Plain Films/CT/US/NM/MRI: chest Comments Post intubation and OG tube placement chest x-ray shows tubes in good position with questionable right pleural effusion. See full report for details. Reviewed: Reviewed by ANUPAMA Calixto MD Jun 18, 2021 07:16
[2021-06-18] MEDS ORDERED: NS IV 1000 ML 1,000 ML IV SCH (08:00)
[2021-06-18] MEDS ORDERED: NOREPINEPHRINE 8 MG/250 ML 250 ML IV SCH (08:00)
[2021-06-18] MEDS ORDERED: LACTATED RINGERS 1,000 ML IV SCH (08:00)
[2021-06-18 08:13] LABS: ABG BASE EXCESS -2.1 MMOL/L (-2.5-2.5); ABG OXYGEN SATURATION 84 % (94-100); ABG PCO2 31 MMHG (35-45); ABG PH 7.45 (7.37-7.43); ABG PO2 50 MMHG (79-93); ABG TCO2 22.3 MMOL/L (21.0-31.0)
[2021-06-18 08:14] LABS: ALLENS TEST POSITIVE; INSPIRED O2 40; PATIENT TEMP 36.3; VENTILATOR YES
[2021-06-18] MEDS: SENNOSIDES 8.6 MG (SENOKOT) TAB PO SCH (08:30)
[2021-06-18] MEDS: DOCUSATE SODIUM 100 MG (COLACE) CAP PO SCH (08:30)
[2021-06-18] MEDS: guaiFENesin (MUCINEX) 600 MG TAB PO SCH (08:30)
[2021-06-18] MEDS: amLODIPine 10 MG (NORVASC) TAB PO SCH (08:30)
[2021-06-18] MEDS: PANTOPRAZOLE 40 MG (PROTONIX) TAB PO SCH (08:30)
[2021-06-18] MEDS: ENOXAPARIN 80 MG/0.8 ML (LOVENOX) SYR SC SCH (08:31)
[2021-06-18] MEDS: ASPIRIN 81 MG CHEW (CHILDREN'S ASA) PO SCH (08:31)
--- NOTE | 2021-06-18 08:59 | Speech Therapy Progress Note ---
Therapy Progress Note ST attempted to complete Bedside Dysphagia Evaluation this am. Patient was on Bipap and unable to alert to participate. will follow up. GUDELIA TAYLOR Jun 18, 2021 08:59
--- NOTE | 2021-06-18 09:40 | Tele-ICU Progress Note ---
Subjective Date Seen by a Provider: Jun 18, 2021 Time Seen by a Provider: 09:40 Sepsis Event Evaluation Height, Weight, BMI Height: 5'9.00" Weight: 182lbs. oz. 82.015147iv; 27.81 BMI Method: Exam Exam Patient acknowledged, consented, and participated in this virtual visit which was conducted using real time audio/video Vital Signs Date Time Temp Pulse Resp B/P (MAP) Pulse Ox O2 Delivery O2 Flow Rate FiO2 06/18/21 07:35 37.0 06/18/21 07:01 85 187/81 06/18/21 07:00 82 06/18/21 06:59 104 130/78 06/18/21 06:52 86 111/57 06/18/21 06:45 Mechanical Ventilator 40.00 06/18/21 06:42 87 89/51 06/18/21 06:30 96 72/47 06/18/21 06:20 110 113/69 06/18/21 06:12 102 26 99 50 06/18/21 06:12 Mechanical Ventilator 50.00 06/18/21 06:10 Ambu Bag 06/18/21 06:05 Ambu Bag 06/18/21 06:00 33 14 51/31 (38) 93 Room Air 06/18/21 05:00 93 186/92 (123) 97 Room Air 06/18/21 04:00 Room Air 06/18/21 04:00 100 184/97 (126) 96 Room Air 06/18/21 03:30 90 39 176/88 (117) 95 Room Air 06/18/21 02:00 92 33 174/89 (117) 94 Room Air 06/18/21 01:30 95 18 179/82 (114) 95 Room Air 06/18/21 01:00 102 20 96 Room Air 06/18/21 01:00 102 06/18/21 00:00 85 25 208/99 (135) 96 Room Air 06/18/21 00:00 Room Air 06/17/21 23:59 36.9 06/17/21 23:00 76 15 162/82 (115) 96 Room Air 06/17/21 22:00 77 27 169/84 (122) 95 Room Air 06/17/21 21:00 88 19 183/96 (134) 96 Room Air 06/17/21 20:00 Room Air 06/17/21 20:00 81 26 156/74 (109) 94 Room Air 06/17/21 19:40 36.8 06/17/21 19:00 Room Air 06/17/21 19:00 82 17 166/76 (94) 95 Room Air 06/17/21 19:00 80 06/17/21 18:28 High Flow N/C 1.00 06/17/21 18:00 78 24 161/85 (110) 91 High Flow N/C 4.00 06/17/21 17:00 75 14 164/81 (108) 94 High Flow N/C 4.00 06/17/21 16:00 74 28 166/81 (109) 94 High Flow N/C 4.00 06/17/21 16:00 37.0 06/17/21 15:38 High Flow N/C 4.00 06/17/21 15:00 71 27 157/77 (103) 93 High Flow N/C 4.00 06/17/21 14:00 82 34 143/74 (97) 93 High Flow N/C 4.00 06/17/21 13:00 83 06/17/21 13:00 82 13 171/89 (116) 97 High Flow N/C 4.00 06/17/21 12:00 High Flow N/C 4.00 06/17/21 12:00 84 11 168/91 (116) 95 High Flow N/C 4.00 06/17/21 11:47 37.4 06/17/21 11:00 87 16 164/84 (110) 94 High Flow N/C 4.00 06/17/21 10:00 86 26 165/94 (117) 89 High Flow N/C 4.00 I & O 06/18/21 07:00 Intake Total 1750 ml Output Total 3500 ml Balance -1750 ml Height & Weight Height: 5'9.00" Weight: 182lbs. oz. 82.271970qu; 27.81 BMI Method: General Appearance: No Apparent Distress, Chronically ill, Obese HEENT: PERRL/EOMI, Moist Mucous Membranes Neck: Normal Inspection, Supple Respiratory: Lungs Clear, Normal Breath Sounds, No Respiratory Distress Cardiovascular: Regular Rate, Rhythm, No Murmur Capillary Refill: Less Than 3 Seconds Peripheral Pulses: 1+ Dorsalis Pedis (R), 1+ Left Dors-Pedis (L) Gastrointestinal: normal bowel sounds, non tender, soft, no organomegaly, other (urostomy, scrotal edema) Extremity: Normal Inspection, Swelling Neurologic/Psychiatric: Alert, Disoriented, Motor Weakness Skin: Normal Color, Warm/Dry Results Lab Laboratory Tests 06/17/21 04:25 06/18/21 03:15 Assessment/Plan Assessment/Plan (Tele-ICU Physician , Progress Note ) Available chart/ vitals / labs / Images reviewed Video assessment done using teleICU camera, rest of exam as per RN discussed with RN Events overnight : re- intubated , bradycardic PEA Afebrile hemodynamically stable, no pressors, I/O = neg 2700 Drips: d5W VENT SETTINGS. AC 15 Vt 480 FiO2 50% PEEP 5 ABG reviewed Sedation: RASS - 2 propofol 20, precedex .4 As per RN exam Consultants: cards , urology Hospital course: (06/09) 80yr old male admitted with confusion, UTI, and fever, INTUBATED , neg COVID 06/13 - AC 15 Vt 480 FiO2 50% PEEP 5 06/15 - extubated t 7L 06/18 -bradycardic PEA. REINTUBATED- on FIO2 40 % A/P bradycardic PEA 06/18 - ROSC , no hypothermia, on propofol - on levo 0.1 - discussion with family Acute resp failure - reintubated after arrest 06/18 - AC 15 ( rr sp 17 ) Vt 480 FiO2 45% PEEP 5 PAP 19 - mental status can be a problem : dementia [employer] Sepsis UTI . bacteremia- klebsiella - repeat blood cx 06/12- neg so far - rising WBC Elev trop / NSTEMI --ECHO 01/11/2021 - EF 50% grd I dst dsfn, No pulm HTN - lovenox 80 bid Elevated D dimer > 20 - US LE negative - Lovenox 80q12 - as per PCP / cards - on hold with bloody secterion Elev transaminases - stable MACKENZIE ? CKD - improving with agressive hydration CR@2.0 now -no hydro on Ct 06/09 Met acidosis - STOPed bicarb Developing effusion on LEFT on cxr 06/10 -stable HyperNAtremia subacute to chronic diverticulitis by CT 06/09 history of CA of the prostate ->a robotic-assisted laparoscopic prostatectomy h/o cancer bladder and underwent a radical cystectomy with ileal loop diversion Lines : R IJ - removed (Central Line Necessity Reviewed) Stanton: - urostomy OG: + Nutrition: TF Analgesia: ns Anxiety/ delirium na VTE Prophylaxis: lovenox 80 q 12 - ON HOLD 06/18 Stress Ulcer Prophylaxis: ppi Glycemic Control: + AWAITING FAMILY DISICIONS FOR GOALS OF CARE - WILL ADJUST PLANS LATTER TODAY A total of 36 minutes of critical care time was devoted to this patient today, required to treat and/or prevent further deterioration of critical care conditi on ( as above GORAN GATES MD Jun 18, 2021 09:40
[2021-06-18] MEDS ORDERED: SODIUM BICARB 8.4% 50 MEQ/50 ML (ABBOTT) SYR INJ ONE (10:02)
[2021-06-18] MEDS ORDERED: MIDAZOLAM 5 MG/5 ML (VERSED) VIAL IJ ONE (10:02)
[2021-06-18] MEDS ORDERED: NS 1000 ML IV BAG IV ONE (10:02)
[2021-06-18] MEDS ORDERED: SUCCINYLCHOLINE INJ 100 MG/5 ML SYR/VIAL INJ ONE (10:02)
[2021-06-18] MEDS ORDERED: EPINEPHrine 0.1 MG/ML 10 ML (HOSPIRA) SYR IJ ONE (10:02)
[2021-06-18 12:29] VITALS: BP 149/79
[2021-06-18] MEDS ORDERED: PROMETHAZINE INJ 25 MG/ML (PHENERGAN) AMP IVP PRN (13:00)
[2021-06-18] MEDS ORDERED: ONDANSETRON 4 MG/2 ML (SDV) Z0FRAN IVP PRN (13:00)
[2021-06-18] MEDS ORDERED: morphine INJ 4 MG/ML 1 ML (VIAL/SYRINGE) IV PRN (13:00)
[2021-06-18] MEDS ORDERED: LORazepam ORAL CONCENTRATE 2 MG/ML 30 ML (ATIVAN) PO PRN (13:00)
[2021-06-18] MEDS ORDERED: ATROPINE 1% OPHTHALMIC SOLN 2 ML SL PRN (13:00)
[2021-06-18] MEDS ORDERED: RT-ALBUTEROL/IPRATROPIUM 3 ML (DUONEB) VIAL INH PRN (13:00)
[2021-06-18] MEDS ORDERED: ARTIFICAL TEARS 0.4 ML UNIT DOSE (REFRESH PLUS) OU PRN (13:00)
[2021-06-18] MEDS ORDERED: morphine (ROXINOL) 10 MG/0.5 ML oral conc 0.5 ML PO PRN (13:00)
[2021-06-18] MEDS ORDERED: BISACODYL 10 MG SUPP (DULCOLAX) PR PRN (13:00)
[2021-06-18] MEDS ORDERED: ACETAMINOPHEN 650 MG SUPP (TYLENOL) PR PRN (13:00)
[2021-06-18] MEDS ORDERED: SALIVA STIMULANT MOUTH SPRAY (BIOTENE) 1.5 OZ MM PRN (13:00)
[2021-06-18] MEDS ORDERED: SCOPOLAMINE 1.5 MG (TRANSDERM-SCOP) PATCH TOP SCH (13:00)
[2021-06-18] MEDS: GLYCOPYRROLATE 0.2 MG/ML (ROBINUL) 2 ML VIAL IV PRN ×2 (13:38→23:37)
[2021-06-18] MEDS: LORazepam INJ 2 MG/ML (ATIVAN) VIAL IVP PRN ×2 (13:39→21:03)
[2021-06-18] MEDS: morphine INJ 4 MG/ML 1 ML (VIAL/SYRINGE) IVP PRN ×6 (14:17→23:07)
--- NOTE | 2021-06-18 16:08 | Progress Note - Cardiology ---
Cardiology SOAP Progress Note Subjective: Cardio-resp arrest this am associated with bradycardia and pulselessness. Resuscitated and promptly regained pulse. Intubated and put on mech vent and running hypotensive. Non communicative Objective: I&O/Vital Signs 06/18/21 06/18/21 06/18/21 06/18/21 04:00 04:00 05:00 06:00 Pulse 100 93 33 Resp 14 B/P (MAP) 184/97 (126) 186/92 (123) 51/31 (38) Pulse Ox 96 97 93 O2 Delivery Room Air Room Air Room Air Room Air 06/18/21 06/18/21 06/18/21 06/18/21 06:05 06:10 06:12 06:12 Pulse 102 Resp 26 B/P (MAP) Pulse Ox 99 O2 Delivery Ambu Bag Ambu Bag Mechanical Ventilator O2 Flow Rate 50.00 FiO2 50 06/18/21 06/18/21 06/18/21 06/18/21 06:20 06:30 06:42 06:45 Pulse 110 96 87 B/P (MAP) 113/69 72/47 89/51 O2 Delivery Mechanical Ventilator O2 Flow Rate 40.00 06/18/21 06/18/21 06/18/21 06/18/21 06:52 06:59 07:00 07:00 Pulse 86 104 82 82 B/P (MAP) 111/57 130/78 101/65 (77) Pulse Ox 95 O2 Delivery Mechanical Ventilator O2 Flow Rate 40.00 06/18/21 06/18/21 06/18/21 06/18/21 07:01 07:35 08:00 08:00 Temp 37.0 Pulse 85 89 Resp 22 B/P (MAP) 187/81 87/52 (64) Pulse Ox 100 O2 Delivery Mechanical Ventilator Mechanical Ventilator O2 Flow Rate 40.00 FiO2 40 06/18/21 06/18/21 06/18/21 06/18/21 09:00 09:45 10:00 11:00 Pulse 77 66 66 74 Resp 11 26 B/P (MAP) 121/68 (85) 111/84 135/84 (101) 124/67 (86) Pulse Ox 99 100 100 O2 Delivery Mechanical Ventilator Mechanical Ventilator Mechanical Ventilator O2 Flow Rate 40.00 40.00 40.00 06/18/21 06/18/21 06/18/21 06/18/21 12:00 12:00 12:00 12:29 Temp 36.1 Pulse 81 74 Resp 18 B/P (MAP) 149/79 (102) Pulse Ox 100 100 O2 Delivery Mechanical Ventilator Mechanical Ventilator O2 Flow Rate 40.00 FiO2 40 40 06/18/21 13:00 Pulse 78 06/18/21 00:00 Intake Total 1500 ml Output Total 2525 ml Balance -1025 ml Weight (Pounds): 182 Weight (Calculated Kilograms): 82.548753 Constitutional: No AAO x 3; well-developed, well-nourished, other (Intubated, sedated, and on mech vent) Respiratory: No accessory muscle use; other (diminished bases bilat. ) Cardiovascular: regular rate-rhythm; No JVD; S1 and S2, systolic murmur (soft FATIMAH at card base) Gastrointestional: No tender; soft; No rebound; audible bowel sounds Genital/Rectal: other (RLQ urostomy) Extremities: no lower extremity edema bilateral Neurologic/Psychiatric: No oriented x 3; other (moves all limbs equally) Skin: No rash on exposed areas, No ulcerations on exposed areas Results/Procedures: Labs Laboratory Tests 06/17/21 17:31: Glucometer 144H 06/18/21 03:15: White Blood Count 14.4H, Red Blood Count 4.03L, Hemoglobin 12.1L, Hematocrit 38L , Mean Corpuscular Volume 95, Mean Corpuscular Hemoglobin 30, Mean Corpuscular Hemoglobin Concent 32, Red Cell Distribution Width 14.0, Platelet Count 274, Alyssa n Platelet Volume 11.4, Immature Granulocyte % (Auto) 2, Neutrophils (%) (Auto) 79H, Lymphocytes (%) (Auto) 12, Monocytes (%) (Auto) 6, Eosinophils (%) (Auto) 1, Basophils (%) (Auto) 0, Neutrophils # (Auto) 11.4H, Lymphocytes # (Auto) 1.7, Monocytes # (Auto) 0.9, Eosinophils # (Auto) 0.2, Basophils # (Auto) 0.0, Immature Granulocyte # (Auto) 0.2H, Sodium Level 151H, Potassium Level 3.5L, Chloride Level 114H, Carbon Dioxide Level 20L, Anion Gap 17H, Blood Urea Nitrogen 49H, Creatinine 2.00H, Estimat Glomerular Filtration Rate 32, BUN/Creatinine Ratio 25, Glucose Level 128H, Calcium Level 8.4L, Corrected Calcium 9.1, Phosphorus Level 2.5, Magnesium Level 2.4, Total Bilirubin 0.7, Aspartate Amino Transf (AST/SGOT) 49H, Alanine Aminotransferase (ALT/SGPT) 63H, Alkaline Phosphatase 377H, Total Protein 6.8, Albumin 3.1L 06/18/21 06:20: Triglycerides Level 250H 06/18/21 08:07: Blood Gas Puncture Site RIGHT RADIAL, Blood Gas Patient Temperature 36.3, Arterial Blood pH 7.45H, Arterial Blood Partial Pressure CO2 31L, Arterial Blood Partial Pressure O2 50L, Arterial Blood HCO3 21L, Arterial Blood Total CO2 22.3, Arterial Blood Oxygen Saturation 84L, Arterial Blood Base Excess -2.1, Eddi Test POSITIVE, Blood Gas Ventilator Setting YES, Blood Gas Inspired Oxygen 40 06/18/21 12:17: Glucometer 106 Microbiology 06/12/21 Blood Culture - Final, Complete No growth 06/09/21 MRSA Screen - Final, Complete MRSA not isolated 06/09/21 Urine Culture - Final, Complete Escherichia coli Klebsiella pneumoniae Enterococcus faecalis Aerococcus urinae A/P: Assessment: Sepsis and septic shock, management per medical/eICU services Cardioresp arrest on am of 06.18.21 Mild troponin elevation likely Type 2 ID secondary to sepsis Echocardiogram from 06/10/[address] Arteaga showed LVEF 50%, grade 1 diastolic dysfunction, mild aortic root dilation (4 cm), mild AoV sclerosis, PASP 27 mmHg Essential hypertension, somewhat low BP at this time which prevents the addition of BB HLD treated with statins Acute kidney injury superimposed on chronic kidney disease, acute component likely secondary to sepsis Urostomy: - history of CA of the prostate that was treated with a robotic-assisted laparoscopic prostatectomy at by Dr. 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 Simeon. (per Dr. Harden's note) Dementia Plan: Complex management due to multiple comorbidities Prognosis appears poor. Family is contemplating comfort care Monitor lab closely Replace electrolytes as indicated Clinical Quality Measures Type of Care: Type of Care: Comfort Measures MEDHAT DOTSON MD FACP [facility] Jun 18, 2021 16:08
[2021-06-18] MEDS ORDERED: AUGMENTIN 875 MG TAB (AMOXICILLIN/CLAVULANATE) PO SCH (18:00)
[2021-06-19] MEDS: LORazepam INJ 2 MG/ML (ATIVAN) VIAL IVP PRN ×4 (00:14→17:16)
[2021-06-19] MEDS: morphine INJ 4 MG/ML 1 ML (VIAL/SYRINGE) IVP PRN ×6 (01:16→15:35)
[2021-06-19] MEDS: GLYCOPYRROLATE 0.2 MG/ML (ROBINUL) 2 ML VIAL IV PRN ×5 (06:51→18:22)
--- NOTE | 2021-06-19 10:44 | Progress Note - Hospitalist ---
Subjective HPI/CC On Admission Date Seen by Provider: Jun 18, 2021 Time Seen by Provider: 07:30 Pt is an 80yoCM witha PMH of prostate and bladder cancer, HTN, HLD, and dementia who presented to the ER due to weakness and altered mental status. He is unable to provide me any history. He has two daughters at the bedside who relay all history except for what is obtained from the chart. He is normally ambulatory and lives in an independent living ([facility] in [place]) who has not felt well for the past couple of days and was worse yesterday. Daughter reports that he would not get out of bed so they recommended that their mom call the facilitys' nurse. When the nurse arrived they called EMS. He was found to be in septic shock from a UTI and admitted to the ICU. Overnight he has continued to worsen and was quite agitated requiring precedex. He then became hypotensive and required central line placement for pressors. Subjective/Events-last exam LATE ENTRY NOTE Patient suffered cardiac arrest in the morning. Family present minus his and would like to pursue comfort measures only but not ready to change status prior to their mom's arrival. Objective Exam Vital Signs Vital Signs Date Time Temp Pulse Resp B/P (MAP) Pulse Ox O2 Delivery O2 Flow Rate FiO2 06/18/21 19:40 Room Air 06/18/21 13:00 78 06/18/21 12:29 18 100 40 06/18/21 12:00 149/79 (102) 40.00 06/18/21 12:00 36.1 Capillary Refill : Less Than 3 Seconds General Appearance: Chronically ill, Other (intubated and sedated) HEENT: Other (scabbing and wound on mouth noted) Respiratory: Rhonci, Other (on vent) Cardiovascular: No Murmur, Tachycardia Gastrointestinal: Normal Bowel Sounds, Non Tender, Soft Genital/Rectal: Other (burris in place) Extremity: Pedal Edema Neurologic/Psychiatric: Other (sedated, appears comfortable) Results/Procedures Lab Patient resulted labs reviewed. Imaging: Reviewed Imaging Report Assessment/Plan Assessment and Plan Assess & Plan/Chief Complaint Cardiac arrest Acute respiratory failure Septic shock Polymicrobial UTI Klebsiella pneumoniae bacteremia Acute respiratory failure with hypoxia Elevated d-dimer CPR with ROSC this AM by Dr Diaz Reintubated this AM Continue Unasyn Venous dopplers negative for DVT Continue Lovenox TeleICU consulted, appreciate assistance Discussed prognosis with family and they would like to pursue comfort care measures once their mom (patient's ) has arrived palliative care consulted, appreciate recs MACKENZIE on CKD Hypernatremia Continue Lasix Dysphagia Was to have Swallow evaluation- hold for likely comfort meaures and intubation Liquid diet with nectar thick NSTEMI, likely type II Presumed to be secondary to severe infection Planning for conservative medical management Cardiology consulted, appreciate assistance HTN Hold home meds due to hypotension Dementia Obesity Clinically significant, no acute management needs DVT ppx: Lovenox Critical Care Critically Ill Patient Diagnosis/Problems Diagnosis/Problems (1) Elevated troponin (2) Septic shock Status: Resolved Resolution Date/Time: 06/14/21 @ 10:51 (3) Urinary tract infection Status: Acute Qualifiers: Urinary tract infection type: site unspecified Hematuria presence: without hematuria Qualified Codes: N39.0 - Urinary tract infection, site not specified (4) Delirium due to another medical condition, acute, hypoactive Status: Acute ZULEYKA ERICKSON MD Jun 19, 2021 10:44
--- NOTE | 2021-06-19 10:57 | Progress Note - Hospitalist ---
Subjective HPI/CC On Admission Date Seen by Provider: Jun 19, 2021 Time Seen by Provider: 10:54 Pt is an 80yoCM witha PMH of prostate and bladder cancer, HTN, HLD, and dementia who presented to the ER due to weakness and altered mental status. He is unable to provide me any history. He has two daughters at the bedside who relay all history except for what is obtained from the chart. He is normally ambulatory and lives in an independent living ([facility]) who has not felt well for the past couple of days and was worse yesterday. Daughter reports that he would not get out of bed so they recommended that their mom call the facilitys' nurse. When the nurse arrived they called EMS. He was found to be in septic shock from a UTI and admitted to the ICU. Overnight he has continued to worsen and was quite agitated requiring precedex. He then became hypotensive and required central line placement for pressors. Subjective/Events-last exam Pt laying in bed. sleeping soundly. no family at bedside. Objective Exam Vital Signs Vital Signs Date Time Temp Pulse Resp B/P (MAP) Pulse Ox O2 Delivery O2 Flow Rate FiO2 06/18/21 19:40 Room Air 06/18/21 13:00 78 06/18/21 12:29 18 100 40 06/18/21 12:00 149/79 (102) 40.00 06/18/21 12:00 36.1 Capillary Refill : Less Than 3 Seconds General Appearance: No Apparent Distress Respiratory: No Respiratory Distress, Decreased Breath Sounds Cardiovascular: Regular Rate, Rhythm Neurologic/Psychiatric: Other (unresponsive, sleeping soundly) Results/Procedures Lab Patient resulted labs reviewed. Imaging: Reviewed Imaging Report Assessment/Plan Assessment and Plan Assess & Plan/Chief Complaint Cardiac arrest Acute respiratory failure Septic shock Polymicrobial UTI Klebsiella pneumoniae bacteremia Acute respiratory failure with hypoxia Elevated d-dimer MACKENZIE on CKD Hypernatremia Dysphagia NSTEMI, likely type II HTN Dementia Obesity palliatively extubated yesterday Appears comfortable Palliative care consulted, appreciate recs Continue comfort meds as needed Critical Care Critically Ill Patient Diagnosis/Problems Diagnosis/Problems (1) Elevated troponin (2) Septic shock Status: Resolved Resolution Date/Time: 06/14/21 @ 10:51 (3) Urinary tract infection Status: Acute Qualifiers: Urinary tract infection type: site unspecified Hematuria presence: without hematuria Qualified Codes: N39.0 - Urinary tract infection, site not specified (4) Delirium due to another medical condition, acute, hypoactive Status: Acute ZULEYKA ERICKSON MD Jun 19, 2021 10:57
== END 2021-06-19 20:45 | disposition expired | DRG 393 ==
LOC: EDUNIT# 17:04 → ER 17:09 → ICU 18:20 → 4TH 06-18 18:46
PROVIDERS: ADMIT Family Medicine; ATTEND Internal Medicine
PROC: 5A1955Z Respiratory Ventilation, Greater than 96 Consecutive Hours (ICD-10-PCS; principal; 2021-06-10)
PROC: 0BH17EZ Insertion of Endotracheal Airway into Trachea, Via Natural or Artificial Opening (ICD-10-PCS; 2021-06-10)
PROC: 5A09357 Assistance with Respiratory Ventilation, Less than 24 Consecutive Hours, Continuous Positive Airway Pressure (ICD-10-PCS; 2021-06-10)
PROC: 5A1935Z Respiratory Ventilation, Less than 24 Consecutive Hours (ICD-10-PCS; 2021-06-18)
DX: K94.12 Enterostomy infection (principal); A41.59 Other Gram-negative sepsis; R65.21 Severe sepsis with septic shock; J96.01 Acute respiratory failure with hypoxia; I21.A1 Myocardial infarction type 2; G93.41 Metabolic encephalopathy; N17.9 Acute kidney failure, unspecified; F05 Delirium due to known physiological condition; E87.2 Acidosis; E87.0 Hyperosmolality and hypernatremia; K57.92 Diverticulitis of intestine, part unspecified, without perforation or abscess without bleeding; Z51.5 Encounter for palliative care; Z66 Do not resuscitate; Z20.822 Contact with and (suspected) exposure to COVID-19; F03.90 Unspecified dementia, unspecified severity, without behavioral disturbance, psychotic disturbance, mood disturbance, and anxiety; I12.9 Hypertensive chronic kidney disease with stage 1 through stage 4 chronic kidney disease, or unspecified chronic kidney disease; N18.2 Chronic kidney disease, stage 2 (mild); D69.6 Thrombocytopenia, unspecified; I46.9 Cardiac arrest, cause unspecified; R13.10 Dysphagia, unspecified; E78.5 Hyperlipidemia, unspecified; E66.9 Obesity, unspecified; Z68.29 Body mass index [BMI] 29.0-29.9, adult; E87.6 Hypokalemia; Z85.46 Personal history of malignant neoplasm of prostate; Z85.51 Personal history of malignant neoplasm of bladder; Z90.79 Acquired absence of other genital organ(s); Z90.6 Acquired absence of other parts of urinary tract; Z79.82 Long term (current) use of aspirin
CPT/HCPCS: 36415; 36600; 71045; 74018; 74176; 80048; 80053; 80061; 81000; 82805; 82947; 83605; 83735; 83880; 84100; 84145; 84478; 84484; 85007; 85025; 85027; 85379; 85384; 85610; 85730; 87040; 87070; 87077; 87081; 87088; 87186; 87205; 87636; 93005; 93306; 93970; 94002; 94003; 94640; 94799; 96361; 96374